=== PATIENT | male | born 1950 | race Caucasian/White ===

== ENCOUNTER 2017-04-10 19:58 | Inpatient (IN) ==
[~2017-04-10 19:58] MED LIST: DUONEB (A & A) INH ONE
[2017-04-10] MEDS ORDERED: AMIDATE ONE (20:03)
[2017-04-10] MEDS ORDERED: QUELICIN ONE (20:04)
[2017-04-10] MEDS ORDERED: ATIVAN IV ONE (20:13)
[2017-04-10] MEDS ORDERED: ATIVAN ONE (20:14)
[2017-04-10 20:19] LABS: MANUAL DIFF NEEDED? NO
[2017-04-10 20:21] LABS: BASO% 0.4 % (0.0-0.8); EOS# 0.41 X1000 (0.0-0.7); EOS% 5.2 % (0.0-10.0); HEMATOCRIT 45.6 % (42.0-52.0); HEMOGLOBIN 13.8 g/dL (14.0-18.0); IMM GRAN# 0.05 X1000 (0.0-0.04); IMM GRAN% 0.6 % (0.0-0.5); LYMPH# 3.38 X1000 (1.2-3.4); LYMPH% 42.7 % (20.5-51.1); MCH 30.4 PG (27-31); MCHC 30.3 g/dL (33-37); MCV 100.4 FL (81-99); MONO# 1.11 X1000 (0.11-0.59); MPV 9.6 FL (7.4-10.4); NEUT% 37.1 % (42.2-75.2); PLT 216 X1000 (130-400); RBC 4.54 XMIL (4.7-6.1)
[2017-04-10] MEDS: DIPRIVAN 1% 1,000 MG/100 ML BOTTLE IV SCH ×3 (20:22→22:30)
[2017-04-10 20:25] LABS: URINE CULTURE NEEDED? NO; URINE MICRO REVIEW NEEDED? NO; URINE SOURCE CATH
[2017-04-10 20:29] LABS: BILIRUBIN URINE NEGATIVE (NEGATIVE); BLOOD URINE NEGATIVE (NEGATIVE); COLOR YELLOW; GLUCOSE URINE NEGATIVE (NEGATIVE); LEUKOCYTES URINE NEGATIVE (NEGATIVE); NITRITE URINE NEGATIVE (NEGATIVE); PH URINE 5.5; PROTEIN URINE TRACE mg/dL (NEGATIVE); SP GRAVITY URINE 1.016; TURBIDITY URINE CLEAR (CLEAR); UROBILINOGEN URINE NORMAL (NORMAL)
[2017-04-10 20:30] LABS: UR EPITHELIAL CELLS <10 /HPF (<10); URINE BACTERIA NEGATIVE /HPF; URINE WBC <10 /HPF (<10)
[2017-04-10] MEDS ORDERED: AMIDATE IV ONE (20:38)
[2017-04-10] MEDS ORDERED: QUELICIN IV ONE (20:38)
[2017-04-10] MEDS ORDERED: LASIX IV ONE (20:39)
[2017-04-10 20:47] LABS: ALBUMIN 3.7 g/dL (3.5-5.0); CALCIUM 8.8 mg/dL (8.8-10.2); POTASSIUM 4.3 mmol/L (3.5-5.1); TOTAL BILIRUBIN 0.29 mg/dL (0.20-1.00); TOTAL PROTEIN 7.4 g/dL (6.3-8.3)
[2017-04-10 20:52] LABS: INR 1.06; PROTIME 11.2 Seconds (9.2-11.7); PTT 31.4 Seconds (22.0-36.0)
[2017-04-10 20:54] LABS: ALLEN TEST YES; BE 6.9 mmoll (-3.0-3.0); BLOOD TYPE ARTERIAL; DRAW SITE R RADIAL; METHB 1.2 % (0.0-1.5); O2(CT) 18.9 mL/dL (15.0-23.0); PO2(98.6) 368 mmHg (60-100); SAMPLE BLOOD; SAO2 99.9 % (95.0-100.0); SRATE 16 BPM; THB 13.2 g/dL (11.5-17.4); TVOL 600 mL; pH(98.6) 7.25 (7.35-7.45)
[2017-04-10 20:55] LABS: MODALITY VENTILATOR
[2017-04-10 20:57] LABS: PCO2(98.6) 85 mmHg (35-45)
--- NOTE | 2017-04-10 21:00 | Diag Imaging Result Doc PS360 ---
EXAM: CHEST-PORTABLE - 04/10/2017 HISTORY: post intubation TECHNIQUE: Portable chest 2030 COMPARISON: 10/22/2016 FINDINGS: There is an endotracheal tube with its tip approximately 5 cm above the delon. There is a nasogastric tube which can be followed to the distal esophagus, but the distal end of the nasogastric tube is not visible on the image. Allowing for the AP projection, heart size appears within normal limits. There is mild prominence of central markings which appears to be chronic. The lungs appear essentially clear of acute changes. There is no pleural effusion or pneumothorax identified. IMPRESSION: Satisfactory position of endotracheal tube. The nasogastric tube can be followed to the distal esophagus, but the distal end of the nasogastric tube is not included on the exam. No other evidence of acute disease. Electronically signed by Tony Haines 04/10/2017 8:58 PM
--- NOTE | 2017-04-10 21:03 | Diag Imaging Result Doc PS360 ---
EXAM: CHEST/ABD TUBE PLACEMENT - 04/10/2017 HISTORY: NG TUBE PLACEMENT TECHNIQUE: Portable exam for nasogastric tube placement 2034 COMPARISON: None. FINDINGS: The tip of the nasogastric tube is at the expected location of the distal esophagus. There is mild gaseous distention of the stomach noted. IMPRESSION: Tip of nasogastric tube at distal esophagus. Advancement of the nasogastric tube into the stomach is recommended for more optimal positioning. Electronically signed by Tony Haines 04/10/2017 9:01 PM
[2017-04-10] MEDS ORDERED: NS 1,000 ML ONE (21:08)
[2017-04-10 21:35] LABS: ALLEN TEST YES; BLOOD TYPE ARTERIAL; DRAW SITE R RADIAL; METHB 0.8 % (0.0-1.5); O2(CT) 15.3 mL/dL (15.0-23.0); PO2(98.6) 63 mmHg (60-100); SAMPLE BLOOD; SAO2 93.5 % (95.0-100.0); SRATE 16 BPM; TVOL 600 mL; pH(98.6) 7.32 (7.35-7.45)
[2017-04-10 21:37] LABS: MODALITY VENTILATOR
[2017-04-10 21:39] LABS: PCO2(98.6) 73 mmHg (35-45)
[2017-04-10] MEDS ORDERED: LEVOPHED 8 MG in D5 1/2 NS 250 ML IV SCH (21:45)
[2017-04-10] MEDS ORDERED: NS 500 ML IV ONE (22:13)
--- NOTE | 2017-04-10 22:52 | Diag Imaging Result Doc PS360 ---
EXAM: ANGIOGRAM/PULMONARY ARTERIES HISTORY: acute resp failure, + DDimer TECHNIQUE: CT chest with intravenous contrast. Dose reduction protocol. COMPARISON: 09/02/2016 FINDINGS: There is normal opacification of the pulmonary arteries and their major branches. No thoracic aortic aneurysm or dissection. An endotracheal tube is found within the trachea. No enlarged mediastinal lymph nodes. There is a calcified granuloma in the right lower lobe. No consolidation. Minimal atelectasis and fibrosis within the lungs. No bronchiectasis. No pleural effusions. IMPRESSION: 1.No pulmonary emboli 2.No pneumonia Electronically signed by Dhaval Castro 04/10/2017 10:49 PM
--- NOTE | 2017-04-10 22:54 | HISTORY AND PHYSICAL ---
PATIENT OF: Dr. Salima Madrigal. REASON FOR ADMISSION: Acute shortness of breath requiring intubation. HISTORY OF PRESENT ILLNESS: Wellington Cortes is a 66-year-old male with past medical history of diastolic heart failure, hypertension, COPD, on nocturnal home O2, morbid obesity, benign prostatic hypertrophy and chronic venous insufficiency. About 2-3 weeks ago they traveled to [place]. While they were there, they went to an urgent care in [place], [place] where he was evaluated and x-ray findings did not suggest any significant pulmonary edema which was the patient's primary concern. He then on arrival back home about a week ago started using his bronchodilators more frequently because he was still dyspneic and start using his home O2 continuously for the last 3 days. His who is at bedside and is the primary source of information, tells me that he has had no orthopnea and no chest pain, no PND. He also been having a 2 day history of a dry cough with chest congestion, but no fever or chills. Today, things took a turn for the worse when she noticed that her heart was increasingly somnolent, in addition to worsening shortness of breath. Later this evening he developed sudden acute dyspnea, and EMS was called and he was brought into the ER where he was emergently intubated. No reported change in his medication. No red discoloration of his lower extremities, although his has reported over the last 1 week both legs have been progressively swollen. Patient does use compressive stockings to address this problem, but this is a little more swollen than they normally are. REVIEW OF SYSTEMS: Otherwise review of systems could not be ascertained because the patient is currently intubated and sedated on the ventilator. ALLERGIES: Celebrex. HOME MEDICATIONS: Have not been reconciled, but the old list I have shows that he was on albuterol, Wellbutrin, Coreg, Depakote, Cardura, Lasix 60 mg b.i.d., that is the only thing I got from the that is updated, gabapentin 300 mg, [place], lisinopril, Remeron, multivitamin tablets, potassium chloride, Spiriva, trazodone, Effexor and vitamin B complex. SURGICAL HISTORY: The patient has had right hip surgery, tonsillectomy, appendectomy and venous stripping. SOCIAL HISTORY: He is . Per his , he stopped smoking about a year ago. Drinks about 2-3 shots a day. No illicit drug use. PAST MEDICAL HISTORY: BPH, hypertension, chronic venous insufficiency, for the rest, see HPI. LABORATORY WORK AND IMAGING: White count 7000, hemoglobin and hematocrit 13 and 45, platelets 216,000. Glucose 159, AST 67, ALT 48, troponin 0.01. D-dimer is 0.7, PT PTT normal. Urinalysis shows 10-20 RBC. Most recent blood gas 7.32, pCO2 73, PO2 63, bicarb 31, this was on 50% FiO2. Respiration rate 16, tidal volume 600, PEEP is 8. Chest x-ray just shows no evidence of increased vascular markings. Troponin 1st set was negative. CK was normal. EKG is pending at this time. PHYSICAL EXAMINATION: GENERAL: Morbidly obese, middle-aged man who is sedated on the ventilator and completely unresponsive because of heavy sedation. HEENT: Head is normocephalic, atraumatic. Eyes are miotic, but barely reactive. He is anicteric and not pale. ENT and oropharyngeal exam is very limited since he has an NG tube in on of his naris and ET tube in place. No visual central cyanosis noted. NECK: Short and thick. I cannot visualize any JVD. No bruit appreciated. No thyromegaly visually appreciated. CHEST: Decreased air entry in both lung sinha with scattered wheezes. No crepitations appreciated. CARDIOVASCULAR: First and second heart sounds heard. No gallops, murmurs, rubs. Rhythm is regular. Pulses distally in all extremities are weak and thready, but they are symmetrical. ABDOMEN: Protuberant, soft. No masses appreciated. No tenderness could be elicited by facial grimacing, because he is sedated. Bowel sounds hypoactive. RECTAL: Deferred. EXTREMITIES: The patient has trace to 1+ pitting edema in both extremities with chronic erythema on guardado. No clubbing or peripheral cyanosis. NEUROLOGIC: Motor system could not be ascertained since patient is on sedation and recently paralyzed. MUSCULOSKELETAL: Visually appears grossly normal. ASSESSMENT: 1. Acute respiratory failure secondary to chronic obstructive pulmonary disease exacerbation. I cannot rule out pulmonary embolism. Currently patient is awaiting a CT angiogram of the chest based on the fact that he did have a recent long distance travel around the time he had the symptoms. He has also a history of chronic venous insufficiency. For now we will await CT scan and then if it is positive we will treat with appropriate dosing of Lovenox. Also start patient on steroids, nebulizer treatments, empiric antibiotics to cover primarily the possibility of aspiration in this patient. Continue ventilator support. Consult receptionist nurse to see patient. We will also start on peptic ulcer disease and DVT prophylaxis in the interim. 2. Chronic obstructive pulmonary disease exacerbation. See above. When patient is discharged, I do suspect that he would need to be on 24 hour home O2 with the addition of long-acting bronchodilators and possibly inhaled corticosteroids. 3. Hypertension. For now patient is hypotensive following Lasix, which makes me believe that he may be intravascularly depleted. We will start patient on IV fluids. We are holding all blood pressure medications. We will give a bolus for now and see how he responds. Decrease PEEP at this point in time to improve blood pressure. The patient is started on Levophed to address this. 4. Benign prostatic hypertrophy. He has Michaud catheter in place. Cardura on hold for the blood pressure. 5. Patient will have daily laboratory, to include ABG, chest x-ray, CBC, CMP and these will need to be followed by morning team and receptionist nurse pupil personnel worker. The patient does not appear to be in congestive heart failure based on my clinical assessment. CRITICAL CARE TIME: 35 minute. cc: MD Salima Gomez
[2017-04-10] MEDS ORDERED: DUONEB (A & A) INH SCH (23:02)
[2017-04-10] MEDS ORDERED: ZOFRAN IV PRN (23:02)
[2017-04-10] MEDS ORDERED: SODIUM CHLORIDE 0.9% INJ ONE (23:02)
[2017-04-11] MEDS: LOVENOX SUBQ SCH (01:52)
[2017-04-11] MEDS: NS 1,000 ML IV SCH ×2 (02:02→15:57)
[2017-04-11] MEDS: ZOSYN 3.375 GM/NS 3.375 GM/50 ML IVPB IV SCH ×4 (02:02→20:48)
[2017-04-11] MEDS: MORPHINE IV PRN ×2 (02:25→04:56)
[2017-04-11] MEDS: DIPRIVAN 1% 1,000 MG/100 ML BOTTLE IV SCH ×13 (02:44→23:16)
[2017-04-11] MEDS: SOLU-MEDROL IV SCH ×3 (03:59→20:49)
[2017-04-11 05:04] LABS: ALLEN TEST YES; BE 17.6 mmoll (-3.0-3.0); BLOOD TYPE ARTERIAL; DRAW SITE R RADIAL; METHB 0.6 % (0.0-1.5); PCO2(98.6) 35 mmHg (35-45); PO2(98.6) 141 mmHg (60-100); SAMPLE BLOOD; SAO2 99.7 % (95.0-100.0); SRATE 18 BPM; THB 11.5 g/dL (11.5-17.4); TVOL 600 mL
[2017-04-11 05:05] LABS: MODALITY VENTILATOR; pH(98.6) 7.66 (7.35-7.45)
[2017-04-11 05:45] LABS: MANUAL DIFF NEEDED? NO
[2017-04-11 05:55] LABS: BASO% 0.2 % (0.0-0.8); EOS# 0.27 X1000 (0.0-0.7); HEMATOCRIT 37.3 % (42.0-52.0); HEMOGLOBIN 11.6 g/dL (14.0-18.0); LYMPH# 1.63 X1000 (1.2-3.4); LYMPH% 30.3 % (20.5-51.1); MCH 30.4 PG (27-31); MCHC 31.1 g/dL (33-37); MCV 97.6 FL (81-99); MONO# 0.64 X1000 (0.11-0.59); MONO% 11.9 % (1.7-9.3); MPV 10.1 FL (7.4-10.4); NEUT% 52.6 % (42.2-75.2); PLT 187 X1000 (130-400); RBC 3.82 XMIL (4.7-6.1)
[2017-04-11 06:21] LABS: ALBUMIN 2.7 g/dL (3.5-5.0); CALCIUM 8.5 mg/dL (8.8-10.2); POTASSIUM 4.1 mmol/L (3.5-5.1); TOTAL BILIRUBIN 0.53 mg/dL (0.20-1.00); TOTAL PROTEIN 5.7 g/dL (6.3-8.3)
--- NOTE | 2017-04-11 07:14 | Diag Imaging Result Doc PS360 ---
EXAM: CHEST-PORTABLE HISTORY: Vent ETT placement and respiratory distress TECHNIQUE: AP portable semiupright chest at 0005 COMMENT: Compared to the previous study of 04/10/2017 there is atelectasis in the left costophrenic angle. Endotracheal tube is at the thoracic inlet and the NG tube passes below the diaphragm. IMPRESSION: Left lower lobe and possible lingular atelectasis. Electronically signed by Art Larson 04/11/2017 7:12 AM
[2017-04-11] MEDS ORDERED: PROTONIX IV SCH (09:00)
[2017-04-11] MEDS: SODIUM CHLORIDE 0.9% INJ SCH (09:59)
[2017-04-11] MEDS: PROTONIX IV SCH (09:59)
[2017-04-11] MEDS: DUONEB (A & A) INH SCH ×2 (19:30→23:00)
--- NOTE | 2017-04-11 19:32 | PROGRESS NOTE ---
DATE: 04/11/2017 SUBJECTIVE: This 66-year-old came in with acute shortness of breath, requiring intubation. He has a past medical history of diastolic heart failure, hypertension, COPD, nocturnal home O2, morbid obesity, benign prostatic hypertrophy, and chronic venous insufficiency. About 2-3 weeks ago he travels to [place]. While he was there he went to urgent care in [place], [place] where he was evaluated and x-ray findings did not suggest any significant pulmonary edema which was patient's primary concern. He then on arrival back a week ago started using his bronchodilators more frequently because he was still dyspneic and started using his home O2 continuously for the last 3 days. His who is at the bedside, primary source of information, said that he had no orthopnea, no chest pain, and no PND. He has been having a 2-day history of dry cough, chest congestion. No fever or chills. He took a turn for the worse when he noticed that his heart rate was increasing and he was increasing somnolent, in addition to worsening shortness of breath. Later in evening he developed sudden acute dyspnea and EMS was called. He was brought to the emergency room where he was intubated. No reported change in medications. After evaluation he was admitted for: 1. Acute respiratory failure, acute on chronic obstructive pulmonary disease exacerbation. Could not rule out pulmonary embolism. The patient was awaiting a CT angiogram. Pulmonary angiogram done at 9 o'clock showed no pulmonary emboli and no pneumonia. He was put on bronchodilator treatments and he was put on some empiric antibiotics as well. 2. Chronic obstructive pulmonary disease exacerbation with hypoxemia. 3. Hypertension. Elected to diurese the patient. 4. Benign prostatic hypertrophy. 5. Nutritional status seemed to be okay. Chest x-ray on 04/11, this morning: Left lower lobe possible lingular atelectasis. X-ray from admission yesterday: Satisfactory position of endotracheal tube, nasogastric tube can be followed down the distal esophagus but the distal end of the nasogastric tube was not in place. Did not see any evidence of acute disease. Reviewed his lab. OBJECTIVE: General: Today intubated on the ventilator. Vital signs: Temperature 97.0 degrees, pulse 50 respirations 10, blood pressure has been between 80 and 100 systolic and 50s diastolic. Lungs: Anterolateral are clear. Cardiovascular: Regular rhythm and rate without murmur or S3. Abdomen: Soft. Skin: Warm and dry. Intake and output: Good urine output, over a liter by report. LABORATORY: Again, reviewed the lab. Electrolytes look okay. Serum creatinine 1.3. REVIEW OF ORDERS: On Zosyn 3.375 mg q.6 hours. Got a dose of Lasix yesterday. He is on normal saline at 75 mL/h, methylprednisone 60 mg IV q.8. He is on Lovenox 40 mg subcutaneously q.24 hours. PLAN: Continue present therapy. Dr. Carcamo is consulted. I suspect we will want to look at an echocardiogram and look at left ventricular function. He has had an echocardiogram done back in October and he at that time had normal left ventricular size. Ejection fraction 65%. His blood gases on presentation 7.25 pH, pCO2 is 85, PO2 368, O2 saturation was 99%. Blood gases from this morning, pH is up to 7.66, pCO2 of 35, PO2 was 141. Based on his lab he may have some volume contraction alkalosis. Blood gas exchange improved. cc: Link Blas MD
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
[2017-04-12] MEDS: DIPRIVAN 1% 1,000 MG/100 ML BOTTLE IV SCH ×12 (01:11→23:42)
[2017-04-12] MEDS: LOVENOX SUBQ SCH (01:13)
[2017-04-12] MEDS: ZOSYN 3.375 GM/NS 3.375 GM/50 ML IVPB IV SCH ×4 (01:13→19:54)
[2017-04-12] MEDS: DUONEB (A & A) INH SCH ×6 (02:40→22:53)
[2017-04-12 04:26] LABS: ALLEN TEST YES; BE 11.2 mmoll (-3.0-3.0); BLOOD TYPE ARTERIAL; DRAW SITE R RADIAL; METHB 1.2 % (0.0-1.5); O2(CT) 18.9 mL/dL (15.0-23.0); PO2(98.6) 63 mmHg (60-100); SAMPLE BLOOD; SAO2 93.5 % (95.0-100.0); SRATE 10 BPM; THB 14.8 g/dL (11.5-17.4); TVOL 600 mL; pH(98.6) 7.41 (7.35-7.45)
[2017-04-12 04:27] LABS: MODALITY VENTILATOR; PCO2(98.6) 61 mmHg (35-45)
[2017-04-12] MEDS: NS 1,000 ML IV SCH (05:16)
[2017-04-12] MEDS: SOLU-MEDROL IV SCH ×3 (05:16→19:56)
[2017-04-12 05:30] LABS: HEMATOCRIT 39.4 % (42.0-52.0); HEMOGLOBIN 12.6 g/dL (14.0-18.0); MCH 30.6 PG (27-31); MCV 95.6 FL (81-99); MPV 10.5 FL (7.4-10.4); RBC 4.12 XMIL (4.7-6.1)
[2017-04-12 06:10] LABS: ALBUMIN 3.1 g/dL (3.5-5.0); CALCIUM 8.4 mg/dL (8.8-10.2); POTASSIUM 4.1 mmol/L (3.5-5.1); TOTAL BILIRUBIN 0.4 mg/dL (0.20-1.00); TOTAL PROTEIN 6.2 g/dL (6.3-8.3)
[2017-04-12 06:15] LABS: MAGNESIUM 1.9 mg/dL (1.5-2.7)
--- NOTE | 2017-04-12 07:20 | Diag Imaging Result Doc PS360 ---
EXAM: CHEST-PORTABLE HISTORY: respiratory failure TECHNIQUE: Erect AP portable at 0525 COMMENT: There continues to be volume loss and atelectasis over the left base. There may be mild atelectasis or pneumonia in the right lower lobe medially. The endotracheal tube remains with its tip at the thoracic inlet. Compared to 04/11/2017 there has been no appreciable change considering differences in inspiration. IMPRESSION: Atelectasis. Electronically signed by Art Larson 04/12/2017 7:18 AM
[2017-04-12] MEDS: SODIUM CHLORIDE 0.9% INJ SCH (08:07)
[2017-04-12] MEDS: PROTONIX IV SCH (08:07)
--- NOTE | 2017-04-12 08:27 | PROVIDER DOCUMENTATION ---
This chart was entered by Camilo Uriostegui Scribe, acting as scribe for Rc Noreiga MD. HPI-Respiratory General - General Stated Complaint: SOB Time Seen by Provider: 04/10/17 19:58 Source: EMS Allergies/Adverse Reactions: Patient Allergies Allergy/AdvReac Type Severity Reaction Status Date / Time celecoxib [From Celebrex] Allergy Severe ANAPHYLAXIS Verified 10/22/16 02:02 Home Medications: Home Medication List Medication Instructions Recorded Confirmed Last Taken Type Bupropion HCl [Wellbutrin Xl] 300 mg PO DAILY 11/24/13 04/10/17 04/10/17 History Divalproex [Depakote] 1,000 mg PO HS 11/24/13 04/10/17 04/10/17 History Doxazosin Mesylate [Cardura] 2 mg PO DAILY 11/24/13 04/10/17 04/10/17 History Lisinopril 40 mg PO DAILY 11/24/13 04/10/17 04/10/17 History Potassium Chloride [Klor-Con 10] 10 meq PO TID 11/24/13 04/10/17 04/10/17 History Trazodone HCl 50 mg PO HS 11/24/13 04/10/17 04/10/17 History Mirtazapine [Remeron] 15 mg PO QHS 07/13/15 04/10/17 04/10/17 History Tiotropium [place] Inhaler 1 puff INH RTDAILY #1 inhaler 07/16/15 04/10/1704/10 Rx [Spiriva] Gabapentin [Neurontin] 300 mg PO Q8HR 02/06/16 04/10/17 04/10/17 History Furosemide 60 mg PO QPM 08/12/16 04/10/17 04/10/17 History Furosemide [Lasix] 60 mg PO QAM 08/12/16 04/10/17 04/10/17 History Mv-Mn/FA/Lycopene/Lut/Hb#178 [Dayron 1 each PO DAILY 08/12/16 04/10/17 04/10/17 History Multi For Men Tablet] Vitamin B Complex [B Complex] 1 each PO DAILY 08/12/16 04/10/17 04/10/17 History Venlafaxine [Effexor] 75 mg PO DAILY 08/17/16 04/10/17 04/10/17 History Hydrocodone/Acetaminophen [[place] 1 each PO DAILY #0 10/24/16 04/10/17 04/10/17 Rx 10-325 Tablet] Albuterol Sulfate Inhaler 1 puff INH Q4H PRN PRN 04/10/17 04/10/17 04/10/17 History [Ventolin Hfa] Carvedilol [Coreg] 12.5 mg PO TID 04/10/17 04/10/17 04/10/17 History Clonazepam [Clonazepam] 2 mg PO TID PRN PRN 04/11/17 04/11/17 04/10/17 History Prazosin [Minipress] 1 mg PO QHS 04/11/17 04/11/17 04/10/17 History - History of Present Illness-Resp Nature of Presenting Problem: Pt is a 66 yowm who presents to ER via EMS for respiratory distress. EMS reports that pt had an O2 sat of 74% on 2L at home, put pt on Cpap and pt's respiration decreased to 4 respirations per minute. 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 EMS reports pt has hx of COPD and CHF. Quality of Pain: reports: tightness Severity in ED: reports: severe Onset/Duration: reports: unsure, 1-3 hours ago Timing: reports: still present, getting worse Associated Symptoms: reports: shortness of breath, short of breath, other ( decreased responsiveness). denies: sinus pain, sore throat, sweaty, wheezing Similar Symptoms Previously?: No Recently seen or treated by another doctor?: No Review of Systems - Adult - REVIEW OF SYSTEMS - ADULT ROS:: ROS per EMS Constitutional: denies: chills, fever, fatique, night sweats, weight gain, weight loss Eyes: reports: no symptoms reported Ears, Nose, Mouth & Throat: reports: no symptoms reported Cardiovascular: reports: no symptoms reported Respiratory: reports: shortness of breath, other (hypoxic). denies: chronic cough, cough, dyspnea on exertion, excessive sputum production, hemoptysis, pleurisy, wheezing Gastrointestinal: reports: no symptoms reported Genitourinary: reports: no symptoms reported Musculoskeletal: reports: no symptoms reported Integumentary: reports: no symptoms reported Neurological: reports: no symptoms reported Psychiatric: reports: no symptoms reported Endocrine: reports: no symptoms reported Hematologic/Lymphatic: reports: no symptoms reported Allergic/Immunologic: reports: no symptoms reported All Other Systems: Reviewed and Negative Past History - Adult - PAST MEDICAL HISTORY-ADULT Review of Records: reports: Nursing Assessment Review, Medications Reviewed Cardiovascular: reports: CHF, HTN, hyperlipidemia Musculoskeletal: reports: arthritis Psychiatric: reports: depression Other Conditions: reports: other cancer (melanoma) - PRIOR SURGERIES/PROCEDURES Surgical/Procedure History: reports: reviewed, not pertinent - PRIOR HOSPITALIZATIONS Prior Hospitalizations: reports: for other non-related - IMMUNIZATION STATUS Childhood Immunizations: See Nurse Assessment Flu Vaccine: See Nurse Assessment Physical Exam-General - PHYSICAL EXAM-ADULT Exam Limited by: decreased responsiveness; See HPI Initial Vital Signs Reviewed: Yes - CONSTITUTIONAL General Appearance: severe distress, obese - RESPIRATORY Respiratory: respiratory distress (severe), other (hypoxic) - CARDIOVASCULAR Cardiovascular: normal peripheral pulses, regular rate, rhythm, bradycardia, other (HTN (196/104)). negative: tachycardia, irregularly irregular Progress - PLAN OF CARE/RESULTS Progress/Plan/Lab Results: Orders Category Date Time Status Admit [facility] Routine AdmDCTranf 04/10/17 23:02 Ordered Activity - Up with Assistance ORDERED Care 04/10/17 23:02 Active Cardiac Monitoring DIRECTED Care 04/10/17 20:07 Completed Michaud Cath Insertion ORDERED Care 04/10/17 20:08 Completed Intake and Output-Strict ORDERED Care 04/10/17 23:02 Active NG/OG/Feeding Tube Insertion ORDERED Care 04/10/17 20:21 Completed Nursing- MD Consult Request ROUTINE Care 04/10/17 23:02 Completed Saline Loc NOW Care 04/10/17 20:07 Completed Vital Signs Order Q 8-HR ASSESS Care 04/10/17 23:02 Completed Z-Document. for Tele Applied ORDERED Care 04/10/17 23:02 Completed Physician/Provider Consults Routine Cons 04/10/17 23:02 Ordered NPO Diet 04/10/17 21:56 Active ANGIOGRAM/PULMONARY ARTERIES [CT] Stat Exams 04/10/17 21:07 Completed CHEST-PORTABLE [RAD] Stat Exams 04/10/17 20:00 Completed CHEST/ABD TUBE PLACEMENT [RAD] Routine Exams 04/10/17 Completed ABG [RESP] DAILY Lab 04/11/17 04:20 Completed ABG [RESP] DAILY Lab 04/12/17 04:00 Completed ABG [RESP] DAILY Lab 04/13/17 06:00 Ordered ABG [RESP] Routine Lab 04/10/17 20:45 Completed ABG [RESP] Routine Lab 04/10/17 21:25 Completed CBC WITH DIFF [HEME] Routine Lab 04/11/17 04:15 Completed CBC WITH ELECTRONIC DIFF [HEME] Stat Lab 04/10/17 19:58 Completed CK PROFILE [SP CHEM] Stat Lab 04/10/17 19:58 Completed COMPREHENSIVE METABOLIC PANEL [CHEM] Routine Lab 04/11/17 04:15 Completed COMPREHENSIVE METABOLIC PANEL [CHEM] Stat Lab 04/10/17 19:58 Completed D-DIMER [CHEM] Stat Lab 04/10/17 19:58 Completed MAGNESIUM [CHEM] Stat Lab 04/10/17 19:58 Completed PRO B-NATRIURETIC PEPTIDE Stat Lab 04/10/17 19:58 Completed PROTIME WITH INR [COAG] Stat Lab 04/10/17 19:58 Completed PTT [COAG] Stat Lab 04/10/17 19:58 Completed TROPONIN T Routine Lab 04/10/17 00:34 Completed TROPONIN T Routine Lab 04/11/17 04:15 Completed TROPONIN T Stat Lab 04/10/17 19:58 Completed TSH Stat Lab 04/10/17 19:58 Completed UA NIMS W/REFLEX CULT [URINALYSIS] Stat Lab 04/10/17 20:14 Completed VALPROIC ACID [TDM] Stat Lab 04/10/17 19:58 Completed 0.9% Sodium Chloride Inj [Ns] 1,000 ml Med 04/10/17 21:08 Discontinued .ROUTE As Directed 0.9% Sodium Chloride Inj [Ns] 1,000 ml Med 04/10/17 23:02 Active IV 75 mls/hr 0.9% Sodium Chloride Inj [Ns] 500 ml Med 04/10/17 22:13 Discontinued IV 250 mls/hr Acetaminophen [Tylenol] Med 04/10/17 23:02 Active 650 mg PO Q6H PRN PRN Albuterol 2.5MG/Ipratrop 0.5MG [Duoneb (A & A)] Med 04/10/17 23:02 Discontinued 3 ml INH Q4H Dextrose 5%-0.45% NaCl Inj [D5 1/2 Ns] 250 ml Med 04/10/17 21:45 Discontinued Norepinephrine [Levophed] 8 mg IV As Directed Enoxaparin [Lovenox] Med 04/10/17 23:02 Active 40 mg SUBQ Q24H Etomidate [Amidate] Med 04/10/17 20:03 Discontinued 40 mg .ROUTE .STK-MED ONE Etomidate [Amidate] Med 04/10/17 20:38 Discontinued 40 mg IV NOW ONE Furosemide [Lasix] Med 04/10/17 20:39 Discontinued 40 mg IV NOW ONE Lorazepam [Ativan] Med 04/10/17 20:14 Discontinued 2 mg .ROUTE .STK-MED ONE Lorazepam [Ativan] Med 04/10/17 20:13 Discontinued 2 mg IV NOW ONE Methylprednisolone Sod Succ [Solu-Medrol] Med 04/11/17 05:00 Active 60 mg IV Q8H Morphine Med 04/10/17 23:02 Active 4 mg IV Q2H PRN PRN Ondansetron [Zofran] Med 04/10/17 23:02 Active 4 mg IV Q4H PRN PRN Pantoprazole [Protonix] Med 04/11/17 09:00 Discontinued 40 mg IV DAILY Piperacil/Tazobact 3.375 gm/Ns [Zosyn 3.375 gm/Ns] Med 04/10/17 23:02 Active 3.375 gm in 50 ml IV Q6H Propofol [Diprivan 1%] Med 04/10/17 20:13 Discontinued 1,000 mg in 100 ml IV Per Protocol Sodium Chloride 0.9% Med 04/10/17 23:02 Discontinued 10 ml INJ NOW ONE Succinylcholine [Quelicin] Med 04/10/17 20:38 Discontinued 100 mg IV NOW ONE Succinylcholine [Quelicin] Med 04/10/17 20:04 Discontinued 200 mg .ROUTE .STK-MED ONE Aerosol Treatments Routine Oth 04/10/17 23:02 Completed Aerosol Treatments Stat Oth 04/10/17 23:02 Completed Telemetry [OM.EQ] Routine Oth 04/10/17 23:02 Active Transfer/Admit Order [TRANSFER] Routine Transfer 04/10/17 21:52 Completed reports that pt's SOB has been intermittent for the past several days. Pt quit smoking 1.5 years ago and is very compliant with his medications. Result Diagrams: 04/12/17 03:55 04/12/17 03:55 - EKG 1 Time of EKG reading by physician:: 21:46 EKG Read and Signed by:: Rc Noriega EKG Interpretation (*Must complete 3 of following elements*): Normal Rate: 77 Rhythm: Sinus rhythm with marked sinus arrhythmia Prior EKG Comparison: unchanged from prior (compared to 09/02/2016) - XRAY 1 XRAY: Bilateral XRAY Study: Chest Impression: See EMR Report (Good position of ET tube, possible pulmonary edema - Dr. Noriega) XRAY Interpretation: See report 2 XRAY: Bilateral XRAY Study: Chest, Abdomen Impression: See EMR Report (NG tube needs to be advanced - Dr. Noriega) XRAY Interpretation: See report - CT/MRI 1 CT Study: Angiogram Impression: See EMR Report (No pulmonary emboli. No pneumonia - Dr. Castro ( Radiologist)) CT Results: See report Procedures - INTUBATION Time of Intubation: 20:00 Airway Evaluation: Obese, Large tongue Mallampati Class: 2 Intubation Method: orotracheal Equipment: Glidescope Tube Size (cm): 7.5 Pretreated with 100% Oxygen?: Yes Breath Sounds after Intubation: equal ETT Primary Tube Confirmation: Capnometry CO2 Change, Direct Visualization, Chest Rise and Fall Intubation Complications: no complications Vent Settings: See Respiratory Therapy Notes Procedure Comment: 40 of etomidate 100 of succinycholine Departure - Departure Date of Disposition Decision: 04/10/17 Time of Disposition Decision: 22:00 DIAGNOSIS: Acute pulmonary edema Disposition: ADMITTED INPATIENT 09 Certified Medical Emergency: Emergent Condition: Stable - Critical Care Note This patient required my direct & personal management of CC.: Yes Total Time (mins): 60 Critical Care Statement: This patient required my direct personal management to treat or rule out processes, the absence of which, could potentiallly result in sudden, clinically significant life or limb threatening deterioration. This chart was documented by the indicated scribe, (Camilo Uriostegui Scribe) and accurately reflects the services I performed and decisions made by me, Rc Mckeon MD, as attested by the provider's signature.
[2017-04-12] MEDS ORDERED: CLINIMIX E 4.25%-5% SOLUTION 1,000 ML IV SCH (09:46)
[2017-04-12] MEDS: 1/2 NS 1,000 ML IV SCH (10:37)
--- NOTE | 2017-04-12 10:41 | PROGRESS NOTE ---
DATE: 04/12/2017 SUBJECTIVE: This patient is still on mechanical ventilation and sedated. Family members at the bedside. All her questions were answered. OBJECTIVE: Vital Signs: Temperature 92.7 degrees, pulse 64, respiratory rate 17, blood pressure 148/75, oxygen saturation 100% on mechanical ventilation with 65% FiO2. HEENT: Head normocephalic. No trauma. PERRLA. Neck: Supple. No JVD. No masses. Central trachea. Chest: Decreased breath sounds globally with mild crackles at the bases. I do not hear any wheezing. Abdomen: Protuberant and soft, nontender, nondistended. No hepatosplenomegaly. Extremities: There is 2+ lower extremity edema. No clubbing. No cyanosis. Neurological examination: This patient is sedated and intubated. LABORATORY: WBC 9.8, hemoglobin 12.6, hematocrit 39.4, platelet 184. Sodium 140, potassium 4.1, chloride 96, bicarbonate 34, BUN 15, creatinine 1.3, glucose 163, calcium 8.4, albumin 3.1. ASSESSMENT AND PLANS: 1. Acute on chronic hypoxemic and hypercapnic respiratory failure. This patient is still on mechanical ventilation. Pulmonary Department is following this patient. 2. Diastolic heart failure exacerbation. I will put this patient on Lasix twice a day. His kidney function is a little bit elevated; we will keep an eye on this. 3. Probably acute on chronic kidney disease. Will monitor. 4. Hypertension. Stable. Continue with the same management for now. 5. Chronic obstructive pulmonary disease exacerbation. Continue with the same management. 6. Benign prostatic hyperplasia, aware. CRITICAL CARE TIME: 35 minutes. cc: Anatoliy Rubin MD
[2017-04-12] MEDS: LASIX IV SCH ×2 (19:56→23:41)
[2017-04-13] MEDS: SOLU-MEDROL IV SCH ×4 (01:03→20:01)
[2017-04-13] MEDS: DIPRIVAN 1% 1,000 MG/100 ML BOTTLE IV SCH ×11 (01:44→22:48)
[2017-04-13] MEDS: LOVENOX SUBQ SCH (01:47)
[2017-04-13] MEDS: ZOSYN 3.375 GM/NS 3.375 GM/50 ML IVPB IV SCH ×4 (02:15→20:12)
[2017-04-13] MEDS: DUONEB (A & A) INH SCH ×6 (03:00→23:07)
[2017-04-13 04:32] LABS: ALLEN TEST YES; BE 8.5 mmoll (-3.0-3.0); BLOOD TYPE ARTERIAL; DRAW SITE R RADIAL; METHB 1.2 % (0.0-1.5); O2(CT) 23.8 mL/dL (15.0-23.0); PO2(98.6) 81 mmHg (60-100); SAMPLE BLOOD; SAO2 96.8 % (95.0-100.0); SRATE 8 BPM; TVOL 700 mL; pH(98.6) 7.43 (7.35-7.45)
[2017-04-13 04:34] LABS: MODALITY VENTILATOR; PCO2(98.6) 53 mmHg (35-45)
[2017-04-13 04:56] LABS: HEMATOCRIT 39.2 % (42.0-52.0); HEMOGLOBIN 12.5 g/dL (14.0-18.0); MCH 30.5 PG (27-31); MCHC 31.9 g/dL (33-37); MCV 95.6 FL (81-99); MPV 10.6 FL (7.4-10.4); RBC 4.1 XMIL (4.7-6.1)
[2017-04-13 05:30] LABS: ALBUMIN 2.9 g/dL (3.5-5.0); CALCIUM 8.3 mg/dL (8.8-10.2); POTASSIUM 4.1 mmol/L (3.5-5.1); TOTAL BILIRUBIN 0.25 mg/dL (0.20-1.00)
[2017-04-13] MEDS: 1/2 NS 1,000 ML IV SCH (07:33)
--- NOTE | 2017-04-13 07:35 | Diag Imaging Result Doc PS360 ---
CHEST-PORTABLE - 04/13/2017 INDICATION: respiratory failure TECHNIQUE: COMPARISON: 04/12/2017 FINDINGS: Support tubes are stable. Stable small to moderate left basilar pleural effusion. Stable patchy bibasilar atelectasis or infiltrates. Stable mild cardiomegaly. Pulmonary vascularity remains normal. IMPRESSION: No change from prior. Electronically signed by Eitan Mendez 04/13/2017 7:32 AM
[2017-04-13] MEDS: LASIX IV SCH ×2 (08:33→20:01)
[2017-04-13] MEDS: PROTONIX IV SCH (08:33)
[2017-04-13] MEDS: SODIUM CHLORIDE 0.9% INJ SCH (08:33)
--- NOTE | 2017-04-13 10:38 | PROGRESS NOTE ---
DATE: 04/13/2017 SUBJECTIVE: This patient is still on mechanical ventilation and sedated. Family members at the bedside. All of her questions were answered. OBJECTIVE: Vital Signs: Temperature 97.2 degrees, pulse 73, respiratory rate 13 and blood pressure 178/94. O2 saturation 94% on 65% FiO2 mechanical ventilation. HEENT : Head normocephalic. No trauma. PERRLA. Neck: Supple. No JVD. No masses. Central trachea. Chest: Decreased breath sounds globally with mild crackles at the bases. No wheezing. Abdomen: Protuberant and soft. Nontender, nondistended. No hepatosplenomegaly. Extremities: 2+ lower extremity edema with some redness at the level of the anterior part of the legs , This as per the , has been chronic. Neurological: The patient is sedated and intubated. LABORATORY: WBC 10.4, hemoglobin 12.5, hematocrit 39.2, platelets 221,000. Sodium 140 potassium 4.1, chloride 95, bicarbonate 31, BUN 22, creatinine 1.3, glucose 254, calcium 8.3 and albumin 2.9. ASSESSMENT AND PLAN: 1. Acute on chronic hypoxemic and hypercapnic respiratory failure. This patient is still on mechanical ventilation. Pulmonary Department is following with this patient. 2. Diastolic heart failure exacerbation. Continue with the Lasix twice a day. We will continue to monitor the kidney function. 3. Questionable diabetes mellitus, I will ask for a hemoglobin A1c to rule it out, for now, this patient will be on sliding scale insulin. 4. Hypertension. His blood pressure has been high. He used to be at home on lisinopril and carvedilol. I will restart his carvedilol but at a lower dose. 5. Chronic obstructive pulmonary disease exacerbation. Continue with the same management. 6. BPH aware. CRITICAL CARE TIME: 35 minutes. cc: Anatoliy Rubin MD MTDD
[2017-04-13] MEDS: HUMULIN R SUBQ SCH ×3 (11:26→20:13)
[2017-04-13] MEDS ORDERED: LASIX IV ONE (13:00)
[2017-04-13] MEDS ORDERED: NS 100 ML ONE (14:26)
[2017-04-13 14:59] LABS: INR 0.97; PROTIME 10.2 Seconds (9.2-11.7)
[2017-04-13] MEDS: COREG PO SCH (20:00)
[2017-04-14] MEDS: DIPRIVAN 1% 1,000 MG/100 ML BOTTLE IV SCH ×10 (01:26→23:41)
[2017-04-14] MEDS: LOVENOX SUBQ SCH (02:13)
[2017-04-14] MEDS: ZOSYN 3.375 GM/NS 3.375 GM/50 ML IVPB IV SCH ×4 (02:13→19:44)
[2017-04-14] MEDS: DUONEB (A & A) INH SCH ×6 (03:12→23:09)
[2017-04-14] MEDS: 1/2 NS 1,000 ML IV SCH ×3 (03:45→20:49)
[2017-04-14 04:34] LABS: ALLEN TEST YES; BE 14.5 mmoll (-3.0-3.0); BLOOD TYPE ARTERIAL; DRAW SITE R RADIAL; METHB 0.9 % (0.0-1.5); O2(CT) 15.8 mL/dL (15.0-23.0); PO2(98.6) 58 mmHg (60-100); SAMPLE BLOOD; SRATE 8 BPM; THB 12.4 g/dL (11.5-17.4); TVOL 700 mL
[2017-04-14 04:35] LABS: MODALITY VENTILATOR; PCO2(98.6) 51 mmHg (35-45)
[2017-04-14] MEDS: SOLU-MEDROL IV SCH ×3 (04:48→20:22)
[2017-04-14 05:20] LABS: HEMATOCRIT 38.3 % (42.0-52.0); HEMOGLOBIN 12.4 g/dL (14.0-18.0); MCHC 32.4 g/dL (33-37); MCV 95.8 FL (81-99); MPV 10.4 FL (7.4-10.4)
[2017-04-14 05:39] LABS: HEMOGLOBIN A1C 5.7 % (4.8-6.0)
[2017-04-14 05:43] LABS: ALBUMIN 2.9 g/dL (3.5-5.0); CALCIUM 7.9 mg/dL (8.8-10.2); POTASSIUM 3.6 mmol/L (3.5-5.1); TOTAL BILIRUBIN 0.35 mg/dL (0.20-1.00)
[2017-04-14] MEDS: HUMULIN R SUBQ SCH ×4 (06:11→20:23)
--- NOTE | 2017-04-14 07:38 | Diag Imaging Result Doc PS360 ---
EXAM: CHEST-PORTABLE INDICATION: respiratory failure TECHNIQUE: One view COMPARISON: 04/13/2017 FINDINGS: ET tube and NG tube are in stable positions. There has been interval placement of a right PICC line. The tip projects over the lower SVC in the region of the atriocaval junction. There is a stable left pleural effusion and left basilar atelectasis. No new consolidation is appreciated. There is stable cardiomegaly. IMPRESSION: Interval placement of right PICC line. Stable chest, otherwise. Electronically signed by Chapo Shore 04/14/2017 7:35 AM
[2017-04-14] MEDS: COREG PO SCH ×2 (08:03→20:38)
[2017-04-14] MEDS: NORVASC PO SCH (08:03)
[2017-04-14] MEDS: SODIUM CHLORIDE 0.9% INJ SCH (08:04)
[2017-04-14] MEDS: PROTONIX IV SCH (08:04)
[2017-04-14] MEDS: LASIX IV SCH (08:04)
--- NOTE | 2017-04-14 15:08 | PROGRESS NOTE ---
DATE: 04/14/2017 SUBJECTIVE: This patient is still on mechanical ventilation and sedated. Family members at the bedside. All her questions were answered, I do not see any significant change compared with yesterday. We will continue to monitor. Pulmonary Department on board. OBJECTIVE: Vital Signs: Temperature 97.5 degrees, pulse 56, respiratory rate 14, blood pressure 119/66, oxygen saturation 94% on mechanical ventilation, 55% FiO2. HEENT: Head normocephalic. No trauma. PERRLA. Neck: Supple. No JVD. No masses. Central trachea. Chest: Decreased breath sounds globally with mild crackles at the bases. No wheezing. Abdomen: Protuberant and soft. Nontender, nondistended. No hepatosplenomegaly. Extremities: 2+ lower extremity edema with some redness at the level of the shins that as per the , has been chronic. Neurological: This patient is sedated and intubated. LABORATORY: WBC 10.1, hemoglobin 12.4, hematocrit 38.3, platelets 221,000. Sodium 145, potassium 3.6, chloride 97, bicarbonate 33, BUN 28, creatinine 1.3, glucose 241, calcium 7.9. Hemoglobin A1c 5.7. ASSESSMENT AND PLAN: 1. Acute on chronic hypoxemic and hypercapnic respiratory failure. This patient is still on mechanical ventilation. Pulmonary Department following this patient closely. We will follow their recommendations. 2. Diastolic heart failure exacerbation. Continue with Lasix, I decreased the dose from twice a day to once a day. We will continue to monitor the kidney function. BUN increased a little bit and creatinine has been stable. 3. Hypertension. His blood pressure has been stable. Continue with the same management for now. Yesterday I restarted this patient on carvedilol, but a lower dose. 4. Chronic obstructive pulmonary disease exacerbation. Continue with the same management. 5. Benign prostatic hypertrophy, aware. CRITICAL CARE TIME: 30 minutes. cc: Anatoliy Rubin MD
[2017-04-14] MEDS: MORPHINE IV PRN (20:55)
[2017-04-15] MEDS ORDERED: ATROPINE IV PRN (00:14)
[2017-04-15] MEDS: LOVENOX SUBQ SCH (01:53)
[2017-04-15] MEDS: ZOSYN 3.375 GM/NS 3.375 GM/50 ML IVPB IV SCH ×4 (01:54→19:19)
[2017-04-15] MEDS: DIPRIVAN 1% 1,000 MG/100 ML BOTTLE IV SCH (01:54)
[2017-04-15] MEDS ORDERED: ATROPINE SYRINGE ONE (02:30)
[2017-04-15] MEDS ORDERED: ATIVAN 20 MG in NS 190 ML IV SCH ×2 (03:00→03:48)
[2017-04-15] MEDS: DUONEB (A & A) INH SCH ×6 (03:11→23:21)
[2017-04-15] MEDS: DEPACON 1,000 MG in NS 50 ML IV SCH (03:52)
[2017-04-15 04:45] LABS: ALLEN TEST YES; BE 10.3 mmoll (-3.0-3.0); BLOOD TYPE ARTERIAL; DRAW SITE R RADIAL; METHB 0.9 % (0.0-1.5); O2(CT) 17.6 mL/dL (15.0-23.0); PO2(98.6) 108 mmHg (60-100); SAMPLE BLOOD; SAO2 98.7 % (95.0-100.0); SRATE 6 BPM; THB 12.9 g/dL (11.5-17.4); TVOL 700 mL; pH(98.6) 7.45 (7.35-7.45)
[2017-04-15] MEDS: SOLU-MEDROL IV SCH ×3 (04:45→20:22)
[2017-04-15 04:47] LABS: MODALITY VENTILATOR; PCO2(98.6) 52 mmHg (35-45)
[2017-04-15 05:02] LABS: HEMATOCRIT 39.5 % (42.0-52.0); HEMOGLOBIN 12.6 g/dL (14.0-18.0); MCH 30.6 PG (27-31); MCHC 31.9 g/dL (33-37); MCV 95.9 FL (81-99); MPV 10.5 FL (7.4-10.4); RBC 4.12 XMIL (4.7-6.1)
[2017-04-15 05:26] LABS: AGAP 20; ALBUMIN 3.1 g/dL (3.5-5.0); ALKALINE PHOSPHATASE 77 U/L (32-122); BUN 31 mg/dL (8-22); CALCIUM 8.5 mg/dL (8.8-10.2); CHLORIDE 97 mmol/L (98-107); COSMO 303; GOT 96 U/L (10-34); GPT 97 U/L (10-44); POTASSIUM 3.5 mmol/L (3.5-5.1); SODIUM 145 mmol/L (136-145); TCO2 28 mmol/L (25-35); TOTAL BILIRUBIN 0.44 mg/dL (0.20-1.00); TOTAL PROTEIN 6.2 g/dL (6.3-8.3)
[2017-04-15] MEDS: MORPHINE IV PRN ×5 (05:27→23:35)
--- NOTE | 2017-04-15 05:44 | EKG Report ---
Test Performed on : 04/15/2017 00:10:14 AM Test Reason : No order in [employer] Blood Pressure : / mmHG Vent. Rate : 041 BPM Atrial Rate : 041 BPM P-R Int : 186 ms QRS Dur : 100 ms QT Int : 520 ms P-R-T Axes : 054 008 014 degrees QTc Int : 429 ms Poor data quality, interpretation may be adversely affected Marked sinus bradycardia. 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
--- NOTE | 2017-04-15 05:44 | EKG Report ---
Test Performed on : 04/14/2017 11:52:50 PM Test Reason : No Order in [employer] Blood Pressure : / mmHG Vent. Rate : 048 BPM Atrial Rate : 048 BPM P-R Int : 194 ms QRS Dur : 094 ms QT Int : 472 ms P-R-T Axes : 067 014 019 degrees QTc Int : 421 ms Sinus bradycardia. Otherwise normal ECG When compared with ECG of 14-APR-2017 23:50, (Unconfirmed) T wave amplitude has increased in high-lateral leads 1 and AVL Confirmed by Norm Saenz DO ([id number]) on 04/17/2017 10:18:33 AM
[2017-04-15] MEDS: HUMULIN R SUBQ SCH ×4 (06:11→20:20)
[2017-04-15] MEDS: ATIVAN 20 MG in NS 190 ML IV SCH ×5 (07:25→23:08)
--- NOTE | 2017-04-15 07:35 | Diag Imaging Result Doc PS360 ---
EXAM: CHEST-PORTABLE HISTORY: respiratory failure TECHNIQUE: AP portable at 0500 COMMENT: There is an endotracheal tube with its tip in the thoracic inlet and an NG tube which passes below the diaphragm. There is pulmonary opacification in the left lower lobe as well as apparent pleural fluid. The inspiration is slightly better than on 04/14/2017. IMPRESSION: Left pleural effusion and lower lobe atelectasis versus pneumonia. Electronically signed by Art Larson 04/15/2017 7:32 AM
[2017-04-15] MEDS: LASIX IV SCH (08:22)
[2017-04-15] MEDS: NORVASC PO SCH (08:22)
[2017-04-15] MEDS: PROTONIX IV SCH (08:22)
[2017-04-15] MEDS: SODIUM CHLORIDE 0.9% INJ SCH (08:22)
[2017-04-15] MEDS ORDERED: DULCOLAX PR ONE (10:57)
[2017-04-15] MEDS: MIRALAX PO SCH (12:35)
--- NOTE | 2017-04-15 14:15 | PROGRESS NOTE ---
DATE: 04/15/2017 SUBJECTIVE: This patient is still on mechanical ventilation and sedated. The family members at the bedside. All their questions were answered. I do not see any significant change compared with yesterday but today this patient is having bradycardia. Cardiology Department has been consulted. OBJECTIVE: Vital Signs: Temperature 98.6 degrees, pulse 47, respiratory rate 12, blood pressure 142/77, oxygen saturation 90% on mechanical ventilation 60% FiO2. HEENT: Head normocephalic. No trauma. PERRLA. Neck: Supple. No JVD. No masses. Central trachea. Chest: Decreased breath sounds globally with mild crackles at the bases. No wheezing. Abdomen: Protuberant and soft. Nontender, nondistended. No hepatosplenomegaly. Extremity: 2+ lower extremity edema with some redness at the level of the shins and that as per the has been chronic. Neurological: The patient is sedated and intubated. LABORATORY: WBC 11.4, hemoglobin 12.6, hematocrit 39.5, platelets 224,000. Sodium 145, potassium 3.5, chloride 97, bicarbonate 28, BUN 31, creatinine 1.1, glucose 235, calcium 8.5, albumin 3.1. ASSESSMENT AND PLAN: 1. Acute on chronic hypoxemic and hypercapnic respiratory failure. This patient is still on mechanical ventilation. Pulmonary Department following this patient closely. We will follow their recommendations. 2. Bradycardia. We stopped all the possible medications that can cause bradycardia and we have consulted Cardiology Department. Pending recommendations. 3. Hypertension. The blood pressure is a little bit elevated. Continue with the same management for now. This patient was receiving carvedilol and amlodipine but we stopped it because of his bradycardia. Pending Cardiology recommendations. 4. Chronic obstructive pulmonary disease exacerbation. Continue with the same management. 5. BPH. Aware. CRITICAL CARE TIME: 35 minutes. cc: Anatoliy Rubin MD
--- NOTE | 2017-04-15 16:24 | ECHO REPORT ---
ORDER DATE: 04/15/2017 INDICATION: Respiratory distress, dyspnea. FINDINGS: 1. The right atrium is mildly enlarged at 4.6 cm. 2. Mild tricuspid regurgitation. Somewhat limited Doppler data to evaluate the RV systolic pressure. 3. Normal RV size and systolic function. 4. Trace pulmonic insufficiency. 5. Mild left atrial enlargement at 4.2 cm. 6. No mitral prolapse. Mild mitral regurgitation. 7. Normal LV size, end-diastolic dimension of 5.7. Moderate left ventricular hypertrophy. Posterior and interventricular septal wall thickness 1.4 and 1.6 cm respectively. Normal LV systolic function. The estimated EF is 65%. Definity echo contrast was used to delineate endocardial borders. Appeared to be normal segmental motion. 8. Aortic valve opens well. It is trileaflet. There is no evidence of stenosis. Moderate insufficiency is identified. 9. Aorta appears normal in visualized segments. 10. No pericardial effusion seen. cc: MD Eleanor Garcia PA
--- NOTE | 2017-04-15 16:34 | CONSULTATION ---
DATE OF CONSULTATION: 04/15/2017 IMPRESSION: 1. Bradycardia in sedated patient on beta-matthew. No indication of hemodynamic compromise related to bradycardia. 2. Respiratory failure, hypercapnia and hypoxemic. 3. Obstructive sleep apnea with poor tolerance of CPAP for chronic obstructive pulmonary disease. 4. Recurrent congestive heart failure (acute on chronic congestive heart failure) with mixed etiology. Left ventricular ejection fraction normal. Patient has diastolic heart failure and likely cor pulmonale to COPD and problematic obstructive sleep apnea. 5. Hypertension. 6. Chronic venous insufficiency. RECOMMENDATIONS: 1. Reduced beta-matthew dose is reasonable for any marked bradycardia. 2. Continue diuresis. HISTORY: This 66-year-old white male with past history of COPD, obstructive sleep apnea, chronic heart failure with mixed etiology, left ventricular ejection fraction, morbid obesity, hypertension, and chronic venous insufficiency was admitted with respiratory failure requiring intubation and mechanical ventilation. He and his had traveled to [place] several weeks ago and recently returned. While in [place] he was having some shortness of breath and had evaluation at the urgent care. After returning back from [place], he started having progressive increasing shortness of breath and started using his home oxygen continuously rather than just at night for the 3 days preceding admission. He has not had any orthopnea or chest pain. He did have development of progressive edema and it seemed that his Lasix became ineffective in helping him diurese. That is to say he seemed to not have much diuretic effect with the Lasix dose prescribed. The afternoon of admission he started to have worsening shortness of breath. His is going to bring him to the emergency room by car but his dyspnea worsened, precipitously. EMS was summoned. He was brought in by ambulance. He was intubated in the emergency room. He was noted to have hypercapnia and hypoxemia. He has been diuresed and is being treated for acute congestive heart failure, COPD, and possible pneumonitis. He was noted to have bradycardia and beta-matthew has been stopped. Noteworthy, he has been on sedation while he has been on mechanical ventilator. PAST MEDICAL HISTORY: 1. COPD. 2. Obstructive sleep apnea with poor tolerance to CPAP. Patient has been using nocturnal oxygen. 3. Morbid obesity. 4. Chronic diastolic heart failure. 5. Posttraumatic stress disorder. 6. Bipolar disorder. 7. Chronic low back pain. 8. Hypertension. 9. Venous insufficiency. PAST SURGICAL HISTORY: Appendectomy and tonsillectomy, also includes previous right hip surgery, and venous stripping. ALLERGIES: He is allergic or intolerant to Celebrex. MEDICATIONS: Prior to admission as listed. He had previously been on Lasix 60 mg p.o. b.i.d. He is also on Coreg. SOCIAL HISTORY: He is . He quit smoking about a year ago. He drinks 2-3 alcoholic beverages consisting of a shot of liquor daily. FAMILY HISTORY: Negative for premature coronary disease. REVIEW OF SYSTEMS: Not obtainable given patient's sedation on the ventilator. PHYSICAL EXAMINATION: General: This is a morbidly obese, older white male, sedated on ventilator. Vital Signs: As recorded include heart rate 55 to 60 beats per minute with ECG monitor showing sinus bradycardia. HEENT: Atraumatic, normocephalic. Mucous membranes are moist. Neck: Supple without discernible jugular distention. There are no carotid bruits. Chest: Auscultation of the chest reveals clear lung sinha anteriorly. Cardiac: Reveals a regular bradycardia without appreciable murmur or gallop. Abdomen: Soft, nontender. Bowel sounds normal. Extremities: Demonstrate trace pretibial edema. Neurologic: Reveals him to be still sedated. DIAGNOSTIC DATA: EKG demonstrates sinus bradycardia 41 beats per minute. cc: Javy Avalos MD
[2017-04-15] MEDS: 1/2 NS 1,000 ML IV SCH (16:52)
[2017-04-16] MEDS: MORPHINE IV PRN ×6 (01:32→20:04)
[2017-04-16] MEDS: LOVENOX SUBQ SCH (01:33)
[2017-04-16] MEDS: ZOSYN 3.375 GM/NS 3.375 GM/50 ML IVPB IV SCH ×4 (01:33→20:06)
[2017-04-16] MEDS: ATIVAN 20 MG in NS 190 ML IV SCH ×8 (02:00→20:49)
[2017-04-16] MEDS: DEPACON 1,000 MG in NS 50 ML IV SCH (02:28)
[2017-04-16] MEDS: DUONEB (A & A) INH SCH ×6 (03:20→23:20)
[2017-04-16] MEDS: SOLU-MEDROL IV SCH ×3 (04:34→20:07)
[2017-04-16 04:53] LABS: ALLEN TEST YES; BE 8.1 mmoll (-3.0-3.0); BLOOD TYPE ARTERIAL; DRAW SITE R RADIAL; METHB 0.9 % (0.0-1.5); O2(CT) 15.3 mL/dL (15.0-23.0); PO2(98.6) 63 mmHg (60-100); SAMPLE BLOOD; SAO2 92.4 % (95.0-100.0); SRATE 6 BPM; THB 12.1 g/dL (11.5-17.4); TVOL 700 mL; pH(98.6) 7.37 (7.35-7.45)
[2017-04-16 04:54] LABS: MODALITY VENTILATOR; PCO2(98.6) 61 mmHg (35-45)
[2017-04-16 05:29] LABS: MANUAL DIFF NEEDED? NO
[2017-04-16 05:33] LABS: BASO% 0.1 % (0.0-0.8); HEMATOCRIT 38.1 % (42.0-52.0); IMM GRAN# 0.12 X1000 (0.0-0.04); IMM GRAN% 1.2 % (0.0-0.5); LYMPH# 1.38 X1000 (1.2-3.4); LYMPH% 14.2 % (20.5-51.1); MCH 30.5 PG (27-31); MCHC 31.5 g/dL (33-37); MCV 96.9 FL (81-99); MONO# 0.97 X1000 (0.11-0.59); MPV 10.3 FL (7.4-10.4); NEUT% 74.5 % (42.2-75.2); PLT 212 X1000 (130-400); RBC 3.93 XMIL (4.7-6.1)
[2017-04-16 06:05] LABS: ALBUMIN 3.2 g/dL (3.5-5.0); POTASSIUM 3.8 mmol/L (3.5-5.1); TOTAL BILIRUBIN 0.43 mg/dL (0.20-1.00); TOTAL PROTEIN 5.9 g/dL (6.3-8.3)
[2017-04-16] MEDS: HUMULIN R SUBQ SCH ×4 (06:13→20:13)
--- NOTE | 2017-04-16 07:11 | Diag Imaging Result Doc PS360 ---
EXAM: CHEST-PORTABLE HISTORY: respiratory failure TECHNIQUE: AP portable at 0500 COMMENT: There is an endotracheal tube with its tip approximately 2 cm above the delon. There is volume loss and opacification of the left lower lobe. There is a left pleural effusion. Compared to the previous study of 04/15/2017 there has been no significant change. IMPRESSION: Left lower lobe atelectasis versus pneumonia. Left pleural effusion. Electronically signed by Art Larson 04/16/2017 7:08 AM
[2017-04-16] MEDS: MIRALAX PO SCH (08:53)
[2017-04-16] MEDS: SODIUM CHLORIDE 0.9% INJ SCH (08:53)
[2017-04-16] MEDS: NORVASC PO SCH (08:53)
[2017-04-16] MEDS: PROTONIX IV SCH (08:53)
[2017-04-16] MEDS: LASIX IV SCH (08:53)
--- NOTE | 2017-04-16 11:51 | PROGRESS NOTE ---
DATE: 04/16/2017 SUBJECTIVE: This patient is still on mechanical ventilation, his propofol has been stopped, and he is receiving Ativan p.r.n. Family members at the bedside. He is still bradycardic, but when we stimulate him, his heart rate increased to the 60s. OBJECTIVE: Vital Signs: Temperature 97.4 degrees, pulse 46, respiratory rate 12, blood pressure 129/73, oxygen saturation 94% on 60% FiO2 on mechanical ventilation. HEENT: Head normocephalic. No trauma. PERRLA. Neck: Supple. No JVD. No masses. Central trachea. Chest: Decreased breath sounds globally with mild crackles at the bases. No wheezing. Abdomen: Protuberant and soft. Nontender and nondistended. No hepatosplenomegaly. Extremity: With 2+ lower extremity edema with some redness at the level of the shins, and that, as per the , has been chronic. Neurologic: The patient is on mechanical ventilation. He is opening his eyes spontaneously, and apparently he has been following commands on and off. LABORATORY: WBC 9.7, hemoglobin 12, hematocrit 38.1, platelet 212,000. Sodium 142, potassium 3.8, chloride 99, bicarbonate 31, BUN 34, creatinine 1.2, glucose 224, calcium 8. ASSESSMENT AND PLAN: 1. Acute on chronic hypoxemic and hypercapnic respiratory failure. This patient is still on mechanical ventilation. Pulmonary Department is following this patient closely. We will follow their recommendations. 2. Bradycardia. We stopped all the possible medications that can cause bradycardia, Cardiology Department has been consulted. We will follow their recommendations. 3. Hypertension, stable. Continue with the same management. 4. Chronic obstructive pulmonary disease exacerbation. Continue with the same treatment for now. 5. Benign prostatic hypertrophy, aware. CRITICAL CARE TIME: 30 minutes. cc: nAatoliy Rubin MD
[2017-04-16] MEDS: 1/2 NS 1,000 ML IV SCH (12:48)
--- NOTE | 2017-04-16 17:57 | PROGRESS NOTE ---
DATE: 04/16/2017 CHIEF COMPLAINT: Shortness of breath. REASON FOR EVALUATION: Bradycardia. SUBJECTIVE: Mr. Cortes is still intubated. He is not on any pressors. They have discontinued Diprivan. He is on Ativan as needed for sedation. is at the bedside. He is opening his eyes and moving his right hand. He seems to be resting comfortably. OBJECTIVE: Vital signs: Blood pressure 144/63, temperature 98.6, pulse 86, however, it dropped to 52, respirations 17. General: He is somewhat arousable. HEENT: Unremarkable. He has an NG tube and also an orotracheal tube. Chest: Symmetrical breath sounds. No rales. Cardiac: Heart sounds are regular and rhythmic. I do not hear a gallop or murmur. Abdomen: Obese. Slightly distended. Extremities: Showed 1-2+ edema bilaterally. Neurologic: He is sedated. He really does not cooperate a whole lot with exam, although at times he appears to move spontaneously the arms and the legs. LABORATORY DATA: Sodium 142, potassium 3.8, BUN 34, creatinine 1.2, albumin 3.2. Hemoglobin A1c is 5.7. Magnesium is normal. Chest x-ray done today reported left lower lobe atelectasis versus pneumonia and pleural effusion. IMPRESSION: 1. Patient with persistent bradycardia. Etiology of this is unclear. He may well have significant coronary artery disease. 2. Chronic obstructive pulmonary disease and respiratory failure. 3. History of sleep apnea syndrome. 4. Obesity. 5. History of hypertension and diastolic heart failure. RECOMMENDATIONS: At this point in time we will continue to observe. No specific cardiac intervention appears to be warranted at this particular moment. We will see how he evolves and we will consider further intervention down the road. Thank you again for the opportunity to participate in his evaluation. cc: Amadou Brand MD
[2017-04-17] MEDS: ATIVAN 20 MG in NS 190 ML IV SCH ×9 (00:14→23:52)
[2017-04-17] MEDS: ZOSYN 3.375 GM/NS 3.375 GM/50 ML IVPB IV SCH ×4 (01:43→19:48)
[2017-04-17] MEDS: LOVENOX SUBQ SCH (01:44)
[2017-04-17] MEDS: MORPHINE IV PRN ×5 (01:44→23:12)
[2017-04-17] MEDS: DEPACON 1,000 MG in NS 50 ML IV SCH (02:37)
[2017-04-17] MEDS: DUONEB (A & A) INH SCH ×5 (03:20→23:16)
[2017-04-17] MEDS: SOLU-MEDROL IV SCH ×3 (04:51→20:30)
[2017-04-17 04:55] LABS: ALLEN TEST YES; BE 4.8 mmoll (-3.0-3.0); BLOOD TYPE ARTERIAL; DRAW SITE R RADIAL; METHB 0.6 % (0.0-1.5); O2(CT) 24.8 mL/dL (15.0-23.0); PO2(98.6) 71 mmHg (60-100); SAMPLE BLOOD; SAO2 94.7 % (95.0-100.0); SRATE 6 BPM; THB 19.1 g/dL (11.5-17.4); TVOL 700 mL; pH(98.6) 7.35 (7.35-7.45)
[2017-04-17 04:57] LABS: MODALITY VENTILATOR; PCO2(98.6) 60 mmHg (35-45)
[2017-04-17 05:34] LABS: HEMATOCRIT 39.7 % (42.0-52.0); HEMOGLOBIN 12.4 g/dL (14.0-18.0); MCH 30.2 PG (27-31); MCHC 31.2 g/dL (33-37); MCV 96.8 FL (81-99); MPV 10.8 FL (7.4-10.4); RBC 4.1 XMIL (4.7-6.1)
[2017-04-17 05:50] LABS: AGAP 15; ALKALINE PHOSPHATASE 68 U/L (32-122); BUN 34 mg/dL (8-22); CALCIUM 8.1 mg/dL (8.8-10.2); CHLORIDE 101 mmol/L (98-107); COSMO 305; GOT 191 U/L (10-34); GPT 267 U/L (10-44); POTASSIUM 4.2 mmol/L (3.5-5.1); SODIUM 146 mmol/L (136-145); TCO2 30 mmol/L (25-35); TOTAL BILIRUBIN 0.67 mg/dL (0.20-1.00); TOTAL PROTEIN 5.9 g/dL (6.3-8.3)
[2017-04-17] MEDS: HUMULIN R SUBQ SCH ×4 (06:05→20:32)
--- NOTE | 2017-04-17 07:27 | Diag Imaging Result Doc PS360 ---
EXAM: CHEST-PORTABLE HISTORY: respiratory failure TECHNIQUE: AP portable chest at 0500 COMMENT: There is volume loss and blunting of the costophrenic angle on the left. This was also present on 04/16/2017. The patient is rotated slightly to the left. There is an endotracheal tube with its tip 2 cm above the delon and a PICC line on the right with its tip in the right atrium. IMPRESSION: Atelectasis versus pneumonia left lower lobe with left pleural effusion. Electronically signed by Art Larson 04/17/2017 7:25 AM
[2017-04-17] MEDS: NORVASC PO SCH (09:00)
[2017-04-17] MEDS: SODIUM CHLORIDE 0.9% INJ SCH (09:00)
[2017-04-17] MEDS: LASIX IV SCH (09:00)
[2017-04-17] MEDS: PROTONIX IV SCH (09:00)
[2017-04-17] MEDS: MIRALAX PO SCH (09:01)
[2017-04-17] MEDS: 1/2 NS 1,000 ML IV SCH (09:09)
--- NOTE | 2017-04-17 09:37 | PROGRESS NOTE ---
DATE: 04/17/2017 SUBJECTIVE: This patient is still on mechanical ventilation. He has been on Ativan p.r.n. He is able to open his eyes spontaneously and also with voice stimulation. He has been following commands a little bit more consistent than yesterday. OBJECTIVE: Vital Signs: Temperature 97.2 degrees, pulse right now on the monitor is 68, respiratory rate 11, blood pressure 149/70, oxygen saturation 92 on mechanical ventilation, 50% FiO2. HEENT: Head normocephalic. No trauma. PERRLA. Neck: Supple. No JVD. No masses. Central trachea. Chest: Decreased breath sounds globally with mild crackles at the bases. Decreased breath sounds at the level of the left base. No wheezing. Abdomen: Protuberant and soft. Nontender, nondistended. No hepatosplenomegaly. Extremities: There is 2+ edema with some redness at the level of the shins. That, as per the , has been chronic. Neurological Examination: The patient is on mechanical ventilation. He is opening his eyes spontaneously and with voice stimulation. He has been following commands apparently more consistent today. Laboratory: WBC 9.8, hemoglobin 12.4, hematocrit 39.7, platelets 209,000. PCO2 60. Sodium 146, potassium 4.2, chloride 101, bicarbonate 30, BUN 30, creatinine 1.1, glucose 215, calcium 8.1. ASSESSMENT AND PLAN: 1. Acute on chronic hypoxic and hypercapnic respiratory failure. Continue with mechanical ventilation. Pulmonary department is following this patient closely. We will continue to follow their recommendations. 2. Bradycardia. At this moment, this patient is not bradycardic and upon stimulation, the heart rate goes up. We will continue to follow. 3. Hypertension, stable. Continue with the same management. 4. Hypernatremia. I will add water flushes to his tube feedings and I will monitor the blood sodium. 5. Benign prostatic hypertrophy. Aware. 6. Hyperglycemia. This is likely related to his tube feedings. He has been on sliding scale insulin but today I will start this patient on a low dose Lantus. His hemoglobin A1c is normal. CRITICAL CARE TIME: 35 minutes. cc: Anatoliy Rubin MD
[2017-04-17] MEDS: LANTUS SUBQ SCH (09:44)
[2017-04-17 12:19] LABS: ALLEN TEST YES; BE 10.3 mmoll (-3.0-3.0); BLOOD TYPE ARTERIAL; DRAW SITE R RADIAL; PO2(98.6) 59 mmHg (60-100); SAMPLE BLOOD; pH(98.6) 7.42 (7.35-7.45)
[2017-04-17 12:21] LABS: MODALITY VENTILATOR; PCO2(98.6) 57 mmHg (35-45)
[2017-04-18] MEDS: LOVENOX SUBQ SCH (01:58)
[2017-04-18] MEDS: MORPHINE IV PRN ×2 (01:58→05:38)
[2017-04-18] MEDS: ZOSYN 3.375 GM/NS 3.375 GM/50 ML IVPB IV SCH ×4 (01:58→20:31)
[2017-04-18] MEDS: DEPACON 1,000 MG in NS 50 ML IV SCH (02:22)
[2017-04-18] MEDS: ATIVAN 20 MG in NS 190 ML IV SCH ×2 (02:27→06:15)
[2017-04-18] MEDS: DUONEB (A & A) INH SCH ×6 (03:25→23:35)
[2017-04-18 04:46] LABS: ALLEN TEST YES; BE 5.5 mmoll (-3.0-3.0); BLOOD TYPE ARTERIAL; DRAW SITE R RADIAL; METHB 0.8 % (0.0-1.5); O2(CT) 22.5 mL/dL (15.0-23.0); PO2(98.6) 70 mmHg (60-100); SAMPLE BLOOD; SAO2 94.9 % (95.0-100.0); SRATE 6 BPM; THB 17.3 g/dL (11.5-17.4); TVOL 700 mL; pH(98.6) 7.37 (7.35-7.45)
[2017-04-18 04:47] LABS: MODALITY VENTILATOR; PCO2(98.6) 57 mmHg (35-45)
[2017-04-18] MEDS: SOLU-MEDROL IV SCH ×3 (05:38→20:30)
[2017-04-18] MEDS: 1/2 NS 1,000 ML IV SCH (05:41)
[2017-04-18 05:53] LABS: HEMATOCRIT 36.6 % (42.0-52.0); HEMOGLOBIN 11.5 g/dL (14.0-18.0); MCH 30.2 PG (27-31); MCHC 31.4 g/dL (33-37); MCV 96.1 FL (81-99); MPV 11.2 FL (7.4-10.4); RBC 3.81 XMIL (4.7-6.1)
[2017-04-18 06:04] LABS: AGAP 10; ALBUMIN 2.7 g/dL (3.5-5.0); ALKALINE PHOSPHATASE 68 U/L (32-122); BUN 34 mg/dL (8-22); CALCIUM 7.7 mg/dL (8.8-10.2); CHLORIDE 102 mmol/L (98-107); COSMO 304; GOT 139 U/L (10-34); GPT 317 U/L (10-44); SODIUM 144 mmol/L (136-145); TCO2 32 mmol/L (25-35); TOTAL BILIRUBIN 0.49 mg/dL (0.20-1.00); TOTAL PROTEIN 5.2 g/dL (6.3-8.3)
[2017-04-18] MEDS: HUMULIN R SUBQ SCH ×4 (06:07→20:24)
--- NOTE | 2017-04-18 07:20 | Diag Imaging Result Doc PS360 ---
EXAM: CHEST-PORTABLE HISTORY: respiratory failure TECHNIQUE: Portable COMPARISON: 04/17/2017 FINDINGS: No change in the endotracheal tube, nasogastric tube, or right-sided PICC line. There is a small left-sided pleural effusion with basilar atelectasis. Appearance is similar to that of the prior exam. The right lung remains well expanded and clear. The heart is mildly prominent. IMPRESSION: Stable chest. Electronically signed by Dhaval Castro 04/18/2017 7:18 AM
[2017-04-18] MEDS: LASIX IV SCH (08:28)
[2017-04-18] MEDS: NORVASC PO SCH (08:28)
[2017-04-18] MEDS: PROTONIX IV SCH (08:28)
[2017-04-18] MEDS: SODIUM CHLORIDE 0.9% INJ SCH (08:28)
[2017-04-18] MEDS: MIRALAX PO SCH (08:28)
[2017-04-18] MEDS: LANTUS SUBQ SCH ×2 (08:32→09:03)
[2017-04-18 10:47] LABS: ALLEN TEST YES; BE 9.7 mmoll (-3.0-3.0); BLOOD TYPE ARTERIAL; DRAW SITE R RADIAL; METHB 1.1 % (0.0-1.5); O2(CT) 16.1 mL/dL (15.0-23.0); PO2(98.6) 67 mmHg (60-100); SAMPLE BLOOD; SAO2 95.3 % (95.0-100.0); THB 12.3 g/dL (11.5-17.4); pH(98.6) 7.43 (7.35-7.45)
[2017-04-18 10:49] LABS: MODALITY VENTILATOR; PCO2(98.6) 54 mmHg (35-45)
--- NOTE | 2017-04-18 13:48 | PROGRESS NOTE ---
DATE: 04/18/2017 SUBJECTIVE: This patient is still on mechanical ventilation and sedated. No acute events overnight. No big changes compared with yesterday. We will try to do a weaning trial to see if we are going to be able to extubate him. OBJECTIVE: Vital Signs: Temperature 97.7 degrees, pulse 53, respiratory rate 12, blood pressure 147/68, oxygen saturation 94% on mechanical ventilation, 50% FiO2. HEENT: Head normocephalic. No trauma. PERRLA. Neck: Supple. No JVD. No masses. Central trachea. Chest: Decreased breath sounds globally with light crackles at the bases, mostly at the level of the left base. No wheezing. Abdomen: Protuberant and soft, nontender, nondistended. No hepatosplenomegaly. Extremities: There is 2+ lower extremity edema with some redness at the level of his shins and that, as per the , has been chronic. Neurological: This patient is on mechanical ventilation. No changes compared with yesterday. LABORATORY: WBC 8.1, hemoglobin 11.5, hematocrit 36.6, platelets 200,000. Sodium 144, potassium 4, chloride 102, bicarbonate 32, BUN 34, creatinine 1, glucose 269, calcium 77, albumin 2.7. ASSESSMENT AND PLAN: 1. Acute on chronic hypoxic and hypercapnic respiratory failure. Continue with mechanical ventilation. Pulmonary department is following this patient closely. We will try to do a weaning trial to see if we can extubate this patient. We will continue to follow their recommendations. 2. Bradycardia, stable. Continue to monitor. 3. Hypertension. Continue with the same management. 4. Hypernatremia, resolved. 5. Benign prostatic hypertrophy, aware. 6. Hyperglycemia. This is likely related to his tube feedings and steroids. I will increase the dose of Lantus from 10 to 20 units daily. CRITICAL CARE TIME: 35 minutes. cc: Anatoliy Rubin MD
[2017-04-18] MEDS ORDERED: ROMAZICON IV ONE (16:25)
[2017-04-18] MEDS: HALDOL IV PRN (23:41)
[2017-04-19] MEDS: 1/2 NS 1,000 ML IV SCH (02:02)
[2017-04-19] MEDS: LOVENOX SUBQ SCH (02:09)
[2017-04-19] MEDS: ZOSYN 3.375 GM/NS 3.375 GM/50 ML IVPB IV SCH ×3 (02:09→13:15)
[2017-04-19] MEDS: DEPACON 1,000 MG in NS 50 ML IV SCH (02:41)
[2017-04-19] MEDS: DUONEB (A & A) INH SCH ×6 (03:15→22:56)
[2017-04-19 04:37] LABS: ALLEN TEST YES; BE 9.5 mmoll (-3.0-3.0); BLOOD TYPE ARTERIAL; DRAW SITE R RADIAL; METHB 1.2 % (0.0-1.5); O2(CT) 16.8 mL/dL (15.0-23.0); PCO2(98.6) 42 mmHg (35-45); PO2(98.6) 78 mmHg (60-100); SAMPLE BLOOD; SAO2 97.5 % (95.0-100.0); THB 12.6 g/dL (11.5-17.4); pH(98.6) 7.51 (7.35-7.45)
[2017-04-19 04:39] LABS: MODALITY BI PAP
[2017-04-19 04:43] LABS: HEMATOCRIT 38.5 % (42.0-52.0); HEMOGLOBIN 12.3 g/dL (14.0-18.0); MCH 30.8 PG (27-31); MCHC 31.9 g/dL (33-37); MCV 96.3 FL (81-99); MPV 11.1 FL (7.4-10.4)
[2017-04-19 05:00] LABS: AGAP 13; ALBUMIN 3.7 g/dL (3.5-5.0); ALKALINE PHOSPHATASE 66 U/L (32-122); BUN 36 mg/dL (8-22); CALCIUM 8.3 mg/dL (8.8-10.2); CHLORIDE 101 mmol/L (98-107); COSMO 301; GOT 65 U/L (10-34); GPT 271 U/L (10-44); POTASSIUM 3.8 mmol/L (3.5-5.1); SODIUM 145 mmol/L (136-145); TCO2 31 mmol/L (25-35); TOTAL BILIRUBIN 0.66 mg/dL (0.20-1.00)
[2017-04-19] MEDS: SOLU-MEDROL IV SCH ×2 (05:16→15:59)
[2017-04-19] MEDS: HUMULIN R SUBQ SCH ×4 (06:59→20:15)
--- NOTE | 2017-04-19 07:29 | Diag Imaging Result Doc PS360 ---
CHEST-PORTABLE - 04/19/2017 INDICATION: respiratory failure TECHNIQUE: COMPARISON: 04/18/2017 FINDINGS: The endotracheal tube is no longer visible. Stable nasogastric tube and right PICC line. Stable cardiomegaly. Stable left basilar consolidation and/or effusion. No new infiltrates on the right. IMPRESSION: Removal of the endotracheal tube. Otherwise no change from prior. Electronically signed by Eitan Mendez 04/19/2017 7:27 AM
[2017-04-19] MEDS: SODIUM CHLORIDE 0.9% INJ SCH (08:20)
[2017-04-19] MEDS: MIRALAX PO SCH ×2 (08:20→10:25)
[2017-04-19] MEDS: LASIX IV SCH (08:21)
[2017-04-19] MEDS: PROTONIX IV SCH (08:21)
[2017-04-19] MEDS: NORVASC PO SCH ×2 (08:21→10:25)
[2017-04-19] MEDS: LANTUS SUBQ SCH (08:39)
[2017-04-19] MEDS ORDERED: INSULIN PEN NEEDLES ONE (08:40)
[2017-04-19] MEDS ORDERED: APRESOLINE IV PRN (09:40)
--- NOTE | 2017-04-19 10:12 | PROGRESS NOTE ---
DATE: 04/19/2017 SUBJECTIVE: This patient was extubated yesterday and he is getting oxygen through a mask at 40% FiO2. The oxygen saturation has been around 90-93%. He is not in respiratory distress at this moment. Family members at the bedside. We discussed about his valproic acid that he was taking at home. The said that he has a history of PTSD and his psychiatrist recommended to use this treatment for him. OBJECTIVE: Vital Signs: Temperature 99.5 degrees, pulse 75, respiratory rate 17, blood pressure 147/77, oxygen saturation 92 on a mask, 40% FiO2. HEENT: Head normocephalic. No trauma. PERRLA. Neck: Supple. No JVD. No masses. Central trachea. Chest: Decreased breath sounds globally with crackles at the bases, mostly at the level of the left side, base. No wheezing. Abdomen: Protuberant, soft, nontender, nondistended. No hepatosplenomegaly. Extremities: There is 2+ lower extremity edema with some redness at the level of the shins and that, as per the , has been chronic. Neurological Examination: The patient is sleepy. He is not following commands for me but as per the nurse, he was following commands in the morning, moving his toes and squeezing her hand. Laboratory: WBC 11.5, hemoglobin 12.3, hematocrit 38.5, platelets 193,000. Sodium 145, potassium 3.8, chloride 101, bicarbonate 31, BUN 36, creatinine 0.9, glucose 178, calcium 8.3. Albumin 3.7. ASSESSMENT AND PLAN: 1. Acute on chronic hypoxic and hypercapnic respiratory failure. Continue with oxygen supplementation. Pulmonary department following this patient closely. This patient was extubated yesterday. We will continue to monitor this patient in the intensive care unit. 2. Bradycardia. Actually at this moment, his heart rate has been in the 70s. We will monitor. 3. Hypertension. I added hydralazine 3 times a day to control his blood pressure. He is already on amlodipine. 4. Hypernatremia, resolved. 5. Benign prostatic hypertrophy, aware. 6. History of posttraumatic stress disorder. Continue with the same treatment. 7. Hyperglycemia. Continue with the same management. CRITICAL CARE TIME: 35 minutes. cc: Anatoliy Rubin MD
--- NOTE | 2017-04-19 10:13 | Diag Imaging Result Doc PS360 ---
CHEST-PORTABLE - 04/19/2017 at 1000 INDICATION: NGT placement TECHNIQUE: COMPARISON: 0500 FINDINGS: There is a stable nasogastric tube in good position with the tip in the stomach IMPRESSION: Nasogastric tube tip in the stomach Electronically signed by Eitan Mendez 04/19/2017 10:11 AM
[2017-04-19] MEDS: APRESOLINE PO SCH ×2 (13:15→20:15)
[2017-04-19] MEDS: ZOSYN 3.375 GM in NS 50 ML IV SCH (19:39)
[2017-04-19] MEDS: HALDOL IV PRN (19:40)
[2017-04-19] MEDS: ATIVAN IV PRN (23:02)
[2017-04-19 23:55] LABS: ALLEN TEST YES; BE 10.3 mmoll (-3.0-3.0); BLOOD TYPE ARTERIAL; DRAW SITE R RADIAL; METHB 1.1 % (0.0-1.5); O2(CT) 18.6 mL/dL (15.0-23.0); PCO2(98.6) 42 mmHg (35-45); PO2(98.6) 88 mmHg (60-100); SAMPLE BLOOD; SAO2 98.5 % (95.0-100.0); THB 13.8 g/dL (11.5-17.4); pH(98.6) 7.52 (7.35-7.45)
[2017-04-19 23:56] LABS: MODALITY BI PAP
[2017-04-20 00:04] LABS: AGAP 9; BUN 36 mg/dL (8-22); CALCIUM 8.7 mg/dL (8.8-10.2); CHLORIDE 102 mmol/L (98-107); COSMO 296; MAGNESIUM 2.5 mg/dL (1.5-2.7); POTASSIUM 3.7 mmol/L (3.5-5.1); SODIUM 143 mmol/L (136-145); TCO2 32 mmol/L (25-35)
[2017-04-20] MEDS: 1/2 NS 1,000 ML IV SCH ×2 (00:31→17:48)
[2017-04-20] MEDS: ZOSYN 3.375 GM in NS 50 ML IV SCH ×4 (01:56→19:26)
[2017-04-20] MEDS: LOVENOX SUBQ SCH (01:56)
[2017-04-20] MEDS: DEPACON 1,000 MG in NS 50 ML IV SCH (02:33)
[2017-04-20] MEDS: HALDOL IV PRN (03:10)
[2017-04-20] MEDS: DUONEB (A & A) INH SCH ×6 (03:27→23:12)
[2017-04-20] MEDS: APRESOLINE PO SCH ×3 (04:11→20:10)
[2017-04-20] MEDS: SOLU-MEDROL IV SCH ×2 (04:11→16:48)
[2017-04-20 04:45] LABS: ALLEN TEST YES; BE 9.3 mmoll (-3.0-3.0); BLOOD TYPE ARTERIAL; DRAW SITE R RADIAL; METHB 1.1 % (0.0-1.5); O2(CT) 19.7 mL/dL (15.0-23.0); PCO2(98.6) 46 mmHg (35-45); PO2(98.6) 61 mmHg (60-100); SAMPLE BLOOD; SAO2 93.3 % (95.0-100.0); THB 15.5 g/dL (11.5-17.4); pH(98.6) 7.48 (7.35-7.45)
[2017-04-20 04:46] LABS: MODALITY CANNULA
--- NOTE | 2017-04-20 05:13 | EKG Report ---
Test Performed on : 04/19/2017 11:22:09 PM Test Reason : bradycardia Blood Pressure : / mmHG Vent. Rate : 073 BPM Atrial Rate : 073 BPM P-R Int : 208 ms QRS Dur : 092 ms QT Int : 432 ms P-R-T Axes : 060 010 026 degrees QTc Int : 475 ms Sinus rhythm. with premature atrial complexes. [place] interval (when present) Nonspecific ST abnormality Abnormal ECG When compared with ECG of 15-APR-2017 00:10, premature atrial complexes. are now present Vent. rate has increased BY 32 BPM T wave inversion now evident in Inferior leads Confirmed by Norm Saenz DO ([id number]) on 04/23/2017 3:29:44 PM
[2017-04-20 05:39] LABS: HEMATOCRIT 38.6 % (42.0-52.0); HEMOGLOBIN 12.4 g/dL (14.0-18.0); MCH 30.8 PG (27-31); MCHC 32.1 g/dL (33-37); MCV 95.8 FL (81-99); MPV 10.8 FL (7.4-10.4); RBC 4.03 XMIL (4.7-6.1)
[2017-04-20 07:10] LABS: AGAP 12; ALBUMIN 3.4 g/dL (3.5-5.0); ALKALINE PHOSPHATASE 66 U/L (32-122); BUN 33 mg/dL (8-22); CHLORIDE 102 mmol/L (98-107); COSMO 295; GOT 61 U/L (10-34); GPT 224 U/L (10-44); POTASSIUM 3.5 mmol/L (3.5-5.1); SODIUM 144 mmol/L (136-145); TCO2 30 mmol/L (25-35); TOTAL BILIRUBIN 0.58 mg/dL (0.20-1.00); TOTAL PROTEIN 5.7 g/dL (6.3-8.3)
[2017-04-20] MEDS: HUMULIN R SUBQ SCH ×4 (07:11→20:16)
--- NOTE | 2017-04-20 07:31 | Diag Imaging Result Doc PS360 ---
EXAM: CHEST-PORTABLE INDICATION: respiratory failure TECHNIQUE: One view COMPARISON: 04/19/2017 FINDINGS: Support tubes and lines are in stable positions. Inspiration is suboptimal. There is stable cardiomegaly and pulmonary venous congestion. Left basilar consolidation and/or effusion appears slightly less dense. Cardiac silhouette is stable. IMPRESSION: Slight improvement of consolidation versus effusion at the left lung base. Electronically signed by Chapo Shore 04/20/2017 7:28 AM
[2017-04-20] MEDS: SODIUM CHLORIDE 0.9% INJ SCH (08:40)
[2017-04-20] MEDS: LANTUS SUBQ SCH (08:40)
[2017-04-20] MEDS: LASIX IV SCH (08:40)
[2017-04-20] MEDS: PROTONIX IV SCH (08:40)
[2017-04-20] MEDS: NORVASC PO SCH ×2 (08:40→20:10)
[2017-04-20] MEDS: MIRALAX PO SCH (08:40)
--- NOTE | 2017-04-20 12:38 | PROGRESS NOTE ---
DATE: 04/20/2017 SUBJECTIVE: Patient extubated 2 days ago. Requiring 5 L of oxygen by nasal cannula. Follows basic commands as per nursing staff. No family at bedside. OBJECTIVE: Vital Signs: Temperature 97.9 degrees, heart rate 70, respiratory rate 18, blood pressure 162/91, O2 saturation 95% on 5 L nasal cannula. General Examination. This is a chronically ill-looking and frail, 66-year-old, male, lying in bed, in no acute distress. HEENT: Head is normocephalic and atraumatic. Anicteric sclerae and pale conjunctivae. Mucous membranes very dry. Neck: Supple. No JVD noted. No carotid bruits. No lymphadenopathy. No thyromegaly. Cardiovascular Examination: S1 and S2 are heard. No murmurs, gallops, or rubs. Bradycardic. Respiratory Examination: Decreased breath sounds globally with some coarse breath sounds in both bases, mostly on the left side. There is no wheezing or crackles. Patient is not using any accessory muscles or having work of breathing. Abdomen: Soft, nondistended. No organomegaly noted. Extremities: There is 2+ pedal edema in both lower extremities with some redness at the level of the shins. Neurological Examination: Patient is sleepy. He does not follow commands for me. As per nursing, he was following commands in the morning. Laboratory Data: White cell count 11.15, hemoglobin 12.4, hematocrit 38.6, platelets 192,000. ABG shows pH 7.48, pCO2 of 46. BMP is remarkable for a glucose of 115. ASSESSMENT AND PLAN: 1. Acute on chronic hypoxic and hypercapnic respiratory failure. Patient extubated 2 days ago. By now, requiring 5 L of oxygen by nasal cannula. Pulmonary is following this patient. We will follow recommendations. I think because his oxygen needs are really way high and considering his medical condition, we will keep this patient 1 more day here in the unit. 2. Sinus bradycardia. Heart rate is sometimes in the 60s and 70s. Dr. Avalos from cardiology following this patient. 3. Hypertension. The patient is on amlodipine 5 mg orally daily and blood pressure is really high. Yesterday, he added hydralazine 3 times per day. I think he needs to be on amlodipine twice a day. We will wait at least a few days to see if this medication is working or not. 4. Hypernatremia, resolved. 5. Benign prostatic hypertrophy. Aware. We will continue home medications. 6. History of posttraumatic stress disorder. Patient is on valproic acid. We will continue with the same management. 7. Hyperglycemia. We will continue with the same management. 8. Disposition. Patient is going to stay in the unit at least today because of his oxygen needs and also because he is confused and does not follow commands, at least for 1 more day because of his oxygen needs and also because that he is confused. We are going to monitor him here closely. cc: Josue Whaley MD
[2017-04-20] MEDS: ATIVAN IV PRN (23:04)
[2017-04-21] MEDS: ZOSYN 3.375 GM in NS 50 ML IV SCH ×4 (01:38→21:10)
[2017-04-21] MEDS: LOVENOX SUBQ SCH (01:39)
[2017-04-21] MEDS: DUONEB (A & A) INH SCH ×6 (03:15→23:40)
[2017-04-21] MEDS: DEPACON 1,000 MG in NS 50 ML IV SCH (03:24)
[2017-04-21] MEDS: HALDOL IV PRN ×2 (03:24→21:10)
[2017-04-21] MEDS: SOLU-MEDROL IV SCH (04:33)
[2017-04-21 04:57] LABS: ALLEN TEST YES; BE 8.3 mmoll (-3.0-3.0); BLOOD TYPE ARTERIAL; DRAW SITE R RADIAL; METHB 0.9 % (0.0-1.5); O2(CT) 24.8 mL/dL (15.0-23.0); PO2(98.6) 83 mmHg (60-100); SAMPLE BLOOD; SAO2 97.2 % (95.0-100.0); THB 18.7 g/dL (11.5-17.4); pH(98.6) 7.44 (7.35-7.45)
[2017-04-21 04:58] LABS: MODALITY CANNULA; PCO2(98.6) 51 mmHg (35-45)
[2017-04-21 05:03] LABS: HEMATOCRIT 39.1 % (42.0-52.0); HEMOGLOBIN 12.7 g/dL (14.0-18.0); MCH 30.4 PG (27-31); MCHC 32.5 g/dL (33-37); MCV 93.5 FL (81-99); MPV 11.1 FL (7.4-10.4); RBC 4.18 XMIL (4.7-6.1)
[2017-04-21 05:17] LABS: AGAP 12; ALBUMIN 3.2 g/dL (3.5-5.0); ALKALINE PHOSPHATASE 71 U/L (32-122); BUN 24 mg/dL (8-22); CALCIUM 8.4 mg/dL (8.8-10.2); CHLORIDE 103 mmol/L (98-107); COSMO 294; GOT 40 U/L (10-34); GPT 182 U/L (10-44); POTASSIUM 3.4 mmol/L (3.5-5.1); SODIUM 146 mmol/L (136-145); TCO2 31 mmol/L (25-35); TOTAL BILIRUBIN 0.59 mg/dL (0.20-1.00); TOTAL PROTEIN 5.9 g/dL (6.3-8.3)
[2017-04-21] MEDS: APRESOLINE PO SCH ×3 (05:46→21:11)
[2017-04-21] MEDS: HUMULIN R SUBQ SCH ×4 (06:14→21:15)
--- NOTE | 2017-04-21 07:16 | Diag Imaging Result Doc PS360 ---
EXAM: CHEST-1 VIEW HISTORY: NG placement TECHNIQUE: Chest abdomen COMPARISON: None. FINDINGS: A nasogastric tube overlies the esophagus and stomach. This is similar in position to the study from 04/20/2017. No free air beneath the diaphragm. IMPRESSION: Nasogastric tube overlies the esophagus and stomach. Electronically signed by Dhaval Castro 04/21/2017 7:14 AM
--- NOTE | 2017-04-21 07:23 | Diag Imaging Result Doc PS360 ---
EXAM: CHEST-PORTABLE HISTORY: respiratory failure TECHNIQUE: Portable COMPARISON: 04/20/2017 FINDINGS: No change in the right-sided PICC line. Nasogastric tube overlies the esophagus and stomach. Heart remains mildly prominent. Central vascular distention. Left basilar atelectasis with a small left pleural effusion present. There are scattered granuloma. IMPRESSION: No interval improvement. Electronically signed by Dhaval Castro 04/21/2017 7:21 AM
[2017-04-21] MEDS: LASIX IV SCH (08:53)
[2017-04-21] MEDS: LANTUS SUBQ SCH (08:53)
[2017-04-21] MEDS: SODIUM CHLORIDE 0.9% INJ SCH (08:53)
[2017-04-21] MEDS: PROTONIX IV SCH (08:53)
[2017-04-21] MEDS: NORVASC PO SCH ×2 (08:54→21:11)
[2017-04-21] MEDS: MIRALAX PO SCH (09:03)
--- NOTE | 2017-04-21 11:32 | PROGRESS NOTE ---
DATE: 04/21/2017 SUBJECTIVE: Patient was extubated 3 days ago. Now is more awake and alert. Follow commands now. He is using oxygen by Ventimask. OBJECTIVE: Vital Signs: Temperature 98.4 degrees, heart rate 80, respiratory rate 14, blood pressure 169/95, O2 saturation 95% on 5 L nasal cannula. General Examination: This is a chronically ill-looking and frail, 66-year-old, male, lying in bed, in no acute distress. HEENT: Head is normocephalic and atraumatic. Anicteric sclerae and pale conjunctivae. Mucous membranes dry. Neck: Supple. No JVD noted. No carotid bruits. No lymphadenopathy. No thyromegaly. Cardiovascular Examination: S1 and S2 heard. No murmurs, gallops, or rubs. Regular rate and rhythm. Respiratory Examination: There are still breath sounds that are decreased globally, some coarse breath sounds in both bases, mostly on the left side. No wheezing or crackles noted. Patient is not using any accessory muscles or having work of breathing. Abdomen: Soft. A little bit distended. No organomegaly noted. No tenderness to palpation noted. Extremities: There is 2+ pitting edema in both lower extremities, unchanged from previous days. There is some redness at the level of the shins. Neurological Examination: Patient is more awake today. Moves 4 extremities spontaneously. Laboratory Data: White cell count 11.53, hemoglobin 12.7, hematocrit 39.1, platelets 210,000. ABG shows pH of 7.44, with pCO2 of 51, PO2 43. BMP is unremarkable except mild hypernatremia at 146 and potassium 3.4. ASSESSMENT AND PLAN: 1. Acute on chronic hypoxic, hypercapnic respiratory failure. Clinically, the patient is doing good with less pCO2. He is still having high oxygen needs. to keep this patient here in the intensive care unit. Pulmonary is following this patient. 2. Sinus bradycardia. The heart rate has been in the range of 70s and 80s all the time. 3. Hypertension. Blood pressure is much better controlled. We have added hydralazine 3 times per day and amlodipine 5 mg by mouth twice a day. We will continue checking vitals every 6 hours. 4. Hypernatremia. Sodium is a little bit high. We will check BMP tomorrow. 5. Benign prostatic hypertrophy. Aware. We will continue home medications. 6. History of posttraumatic stress disorder. Patient is on valproic acid. We will continue with the same management. 7. Hyperglycemia. The glucose has been really high. Hemoglobin A1c was checked recently and was 5.7. We will continue watching this, checking blood sugars. 8. Disposition. Patient is going to stay here in the unit until his oxygen needs go down and then will be transferred to the floor, most likely tomorrow. cc: Josue Whaley MD
[2017-04-21] MEDS: 1/2 NS 1,000 ML IV SCH (13:33)
[2017-04-22] MEDS: HALDOL IV PRN ×2 (01:04→23:24)
[2017-04-22] MEDS: LOVENOX SUBQ SCH (01:04)
[2017-04-22] MEDS: ZOSYN 3.375 GM in NS 50 ML IV SCH ×4 (01:06→21:37)
[2017-04-22] MEDS: DEPACON 1,000 MG in NS 50 ML IV SCH (02:20)
[2017-04-22] MEDS: DUONEB (A & A) INH SCH ×6 (03:15→23:00)
[2017-04-22] MEDS: ATIVAN IV PRN ×2 (03:31→22:31)
[2017-04-22] MEDS: APRESOLINE PO SCH ×3 (04:11→21:37)
[2017-04-22 05:46] LABS: HEMATOCRIT 39.2 % (42.0-52.0); HEMOGLOBIN 12.5 g/dL (14.0-18.0); MCH 30.9 PG (27-31); MCHC 31.9 g/dL (33-37); MCV 96.8 FL (81-99); MPV 11.2 FL (7.4-10.4); RBC 4.05 XMIL (4.7-6.1)
[2017-04-22 06:09] LABS: AGAP 10; ALBUMIN 3.4 g/dL (3.5-5.0); ALKALINE PHOSPHATASE 63 U/L (32-122); BUN 24 mg/dL (8-22); CALCIUM 8.3 mg/dL (8.8-10.2); CHLORIDE 101 mmol/L (98-107); COSMO 289; GOT 42 U/L (10-34); GPT 153 U/L (10-44); POTASSIUM 3.2 mmol/L (3.5-5.1); SODIUM 144 mmol/L (136-145); TCO2 33 mmol/L (25-35); TOTAL BILIRUBIN 0.61 mg/dL (0.20-1.00); TOTAL PROTEIN 6.2 g/dL (6.3-8.3)
[2017-04-22] MEDS ORDERED: D50W SYRINGE ONE (06:18)
[2017-04-22] MEDS: HUMULIN R SUBQ SCH ×4 (07:46→21:41)
[2017-04-22] MEDS: NORVASC PO SCH ×2 (08:07→21:37)
[2017-04-22] MEDS: LASIX IV SCH (08:07)
[2017-04-22] MEDS: PROTONIX IV SCH (08:07)
[2017-04-22] MEDS: SOLU-MEDROL IV SCH (08:07)
[2017-04-22] MEDS: LANTUS SUBQ SCH (08:27)
[2017-04-22] MEDS: MIRALAX PO SCH (09:24)
[2017-04-22] MEDS: 1/2 NS 1,000 ML IV SCH (10:30)
[2017-04-22] MEDS ORDERED: POTASSIUM CHLORIDE 40 MEQ/SWI 40 MEQ/100 ML IVPB IV ONE (10:40)
--- NOTE | 2017-04-22 11:50 | PROGRESS NOTE ---
DATE: 04/22/2017 SUBJECTIVE: The patient is definitely much better orientated in a good mood, doing jokes. Patient follows commands. OBJECTIVE: Vital Signs: Temperature 98.8 degrees, heart rate 79, respiratory rate 16, blood pressure 150/88. O2 saturation 95% on 5 L nasal cannula. General: This is a chronically ill- looking and frail, 66-year-old male, lying in bed, in no acute distress. HEENT: Head is normocephalic, atraumatic. Anicteric sclerae and pale conjunctivae. Neck: Supple. No JVD noted. No carotid bruits. No lymphadenopathy. No thyromegaly. Cardiovascular: S1, S2 heard. No murmurs, gallops, or rubs. Regular rate and rhythm. Respiratory: There is still coarse breath sounds in both bases. Patient no wheezing. The patient does not have any crackles noted. He is not using any accessory muscles or having work of breathing. Abdomen: Soft, a little bit distended. No organomegaly. Nontender to palpation. Extremities: With 2+ pitting edema in both lower extremities continued from previous days. Some redness at the level of the shins. Neurological: Patient is more alert today. Moves 4 extremities. LABORATORY DATA: White cell count 12.19, hemoglobin 12.5, hematocrit 39.2, platelets 198,000. Potassium 3.2. ASSESSMENT AND PLAN: 1. Acute on chronic hypoxic hypercapnic respiratory failure. Clinically patient is doing good. Mentation is also improving. We have not checked CO2 but I think we can skip ABG for today because clinically he continues to improve. At this time, I guess this patient can be transferred out of the unit today. Pulmonary is also following this patient. 2. Sinus bradycardia. That condition is resolved. 3. Hypertension, blood pressure last week. With modification that we have made to his current treatment, blood pressure is in the range of 158 and 130 sometimes so I guess he can continue with the same management. 4. Hypernatremia. That condition is completely resolved. 5. Benign prostatic hypertrophy. We will continue with home medications. 6. History of posttraumatic stress disorder. Patient is on valproic acid. We will plan to continue with the same medication. 7. Hyperlipidemia that is resolving. 8. Disposition: Patient is going to be transferred from the intensive care unit today. He has become very weak. Physical therapy is going to be called in because he was intubated approximately for 7 days and he has become very weak. He most likely need rehab facility at discharge, but now, he is medically stable. cc: Josue Whaley MD
[2017-04-23] MEDS: ZOSYN 3.375 GM in NS 50 ML IV SCH ×3 (02:33→14:24)
[2017-04-23] MEDS: DEPACON 1,000 MG in NS 50 ML IV SCH (02:33)
[2017-04-23] MEDS: LOVENOX SUBQ SCH (02:33)
[2017-04-23] MEDS: DUONEB (A & A) INH SCH ×6 (03:20→23:19)
[2017-04-23] MEDS: APRESOLINE PO SCH ×2 (04:49→12:43)
[2017-04-23] MEDS: 1/2 NS 1,000 ML IV SCH (04:51)
[2017-04-23 05:52] LABS: HEMOGLOBIN 11.2 g/dL (14.0-18.0)
[2017-04-23 06:19] LABS: AGAP 10; ALBUMIN 3.2 g/dL (3.5-5.0); ALKALINE PHOSPHATASE 57 U/L (32-122); BUN 18 mg/dL (8-22); CALCIUM 7.9 mg/dL (8.8-10.2); CHLORIDE 100 mmol/L (98-107); COSMO 278; GOT 30 U/L (10-34); GPT 113 U/L (10-44); SODIUM 138 mmol/L (136-145); TCO2 28 mmol/L (25-35); TOTAL BILIRUBIN 0.51 mg/dL (0.20-1.00); TOTAL PROTEIN 5.6 g/dL (6.3-8.3)
[2017-04-23] MEDS: HUMULIN R SUBQ SCH ×3 (07:39→16:04)
[2017-04-23 07:42] LABS: MCV 93.8 FL (81-99); RBC 3.73 XMIL (4.7-6.1)
[2017-04-23] MEDS: PROTONIX IV SCH (08:02)
[2017-04-23] MEDS: LASIX IV SCH (08:02)
[2017-04-23] MEDS: SOLU-MEDROL IV SCH (08:02)
[2017-04-23] MEDS: LANTUS SUBQ SCH (08:03)
[2017-04-23] MEDS: MIRALAX PO SCH (08:03)
[2017-04-23] MEDS: NORVASC PO SCH (08:03)
[2017-04-23] MEDS ORDERED: KLONOPIN PO PRN (09:00)
[2017-04-23] MEDS ORDERED: LASIX PO SCH ×2 (09:01)
[2017-04-23] MEDS: DEPAKOTE PO SCH (09:26)
[2017-04-23] MEDS: EFFEXOR XR PO SCH (09:57)
[2017-04-23] MEDS: WELLBUTRIN XL PO SCH (09:57)
[2017-04-23] MEDS: POTASSIUM CHLORIDE 60 MEQ in NS 500 ML IV SCH ×2 (09:57→17:00)
[2017-04-23] MEDS: COREG PO SCH (09:57)
[2017-04-23] MEDS: SPIRIVA INH SCH (11:05)
--- NOTE | 2017-04-23 12:55 | PROGRESS NOTE ---
DATE: 04/23/2017 SUBJECTIVE: According to nursing staff, the patient had a rough night last night. He became very restless. He was also combative, and he told that he was in [facility] and [place]. He was put back on restraints. Now, he is definitely much better, although a little bit slow, but he knows where he is and he recognizes his . OBJECTIVE: Vital Signs: Temperature 97.4, heart rate 105, respiratory 19, blood pressure 178/111. O2 saturation 97% on 5 L nasal cannula. General: This is a chronically ill-looking, frail, 66- year-old male, lying in bed in no acute distress. HEENT: Head is normocephalic and atraumatic. Anicteric sclerae and pale conjunctivae. Mucous membranes dry. Neck supple. No JVD noted. No carotid bruits. No lymphadenopathy. No thyromegaly. Cardiovascular: S1, S2 heard. No murmurs, gallops, or rubs. Regular rate and rhythm. Respiratory: There are coarse breath sounds still present in both bases unchanged with The patient does not have any wheezing or crackles. The patient is not using any accessory muscles or having work of breathing. Abdomen is soft, a little bit distended. No organomegaly. Nontender to palpation. Extremities: There is 2+ pitting edema in both lower extremities. That is the same in comparing with previous days and some redness at the level of the [place]. Neurologic: Patient is alert and oriented x3. Moves 4 extremities. LABORATORY DATA: Reviewed. ASSESSMENT AND PLAN: 1. [id number] hypoxic and hypercapnic respiratory failure. Patient is doing good. The oxygen needs are still the same. We are going to check ABG tomorrow. Pulmonary following this patient. 2. Sinus bradycardia, resolved. 3. Recurrent delirium. The patient has been having a rough night yesterday and the day before. I think this patient needs to be restarted on all his home medications. He is going to start taking those medications today. 4. Hypertension. The blood pressure has been a little bit higher, and I guess it is also because he was not able to take his own medications. In this case, he was on amlodipine and hydralazine. Also, carvedilol 12.5 will be added to his current treatment. We will see how this patient does. 5. Hyponatremia, resolved. 6. History of posttraumatic stress disorder. Patient will be restarted on home medications. DISPOSITION: The patient is going to be transferred to a regular floor. Physical therapy will be working with him. We most likely need to send him to a rehab facility. cc: Josue Whaley MD
[2017-04-23] MEDS: TYLENOL PO PRN (15:59)
[2017-04-23] MEDS: NEURONTIN PO SCH (18:55)
[2017-04-24] MEDS: ZOSYN 3.375 GM in NS 50 ML IV SCH ×4 (01:30→15:00)
[2017-04-24] MEDS: LOVENOX SUBQ SCH (01:31)
[2017-04-24] MEDS: DEPAKOTE PO SCH (01:32)
[2017-04-24] MEDS: COREG PO SCH ×2 (01:34→10:10)
[2017-04-24] MEDS: REMERON PO SCH (01:35)
[2017-04-24] MEDS: NEURONTIN PO SCH ×3 (01:36→15:30)
[2017-04-24] MEDS: NORVASC PO SCH ×2 (01:36→10:10)
[2017-04-24] MEDS: APRESOLINE PO SCH ×3 (01:37→15:30)
[2017-04-24] MEDS: DESYREL PO SCH (01:40)
[2017-04-24] MEDS: LASIX PO SCH ×2 (02:05→10:10)
[2017-04-24] MEDS: DUONEB (A & A) INH SCH ×6 (04:19→23:10)
[2017-04-24] MEDS: HUMULIN R SUBQ SCH (06:11)
[2017-04-24 07:34] LABS: HEMATOCRIT 36.8 % (42.0-52.0); HEMOGLOBIN 11.6 g/dL (14.0-18.0); MCH 30.2 PG (27-31); MCHC 31.5 g/dL (33-37); MCV 95.8 FL (81-99); MPV 10.9 FL (7.4-10.4); RBC 3.84 XMIL (4.7-6.1)
[2017-04-24] MEDS: SPIRIVA INH SCH (07:34)
[2017-04-24 07:50] LABS: AGAP 11; ALBUMIN 3.5 g/dL (3.5-5.0); ALKALINE PHOSPHATASE 63 U/L (32-122); BUN 19 mg/dL (8-22); CALCIUM 8.5 mg/dL (8.8-10.2); CHLORIDE 102 mmol/L (98-107); COSMO 284; GOT 26 U/L (10-34); GPT 100 U/L (10-44); POTASSIUM 3.5 mmol/L (3.5-5.1); SODIUM 141 mmol/L (136-145); TCO2 28 mmol/L (25-35); TOTAL BILIRUBIN 0.57 mg/dL (0.20-1.00); TOTAL PROTEIN 6.2 g/dL (6.3-8.3)
[2017-04-24] MEDS: 1/2 NS 1,000 ML IV SCH (10:01)
[2017-04-24] MEDS: MIRALAX PO SCH (10:08)
[2017-04-24] MEDS: EFFEXOR XR PO SCH (10:09)
[2017-04-24] MEDS: SOLU-MEDROL IV SCH (10:09)
[2017-04-24] MEDS: PROTONIX IV SCH (10:09)
[2017-04-24] MEDS: SODIUM CHLORIDE 0.9% INJ SCH (10:09)
[2017-04-24] MEDS: WELLBUTRIN XL PO SCH (10:09)
[2017-04-24] MEDS: LANTUS SUBQ SCH (10:20)
--- NOTE | 2017-04-24 15:32 | PROGRESS NOTE ---
DATE: 04/24/2017 SUBJECTIVE: Patient sleep very well overnight. As per who is at bedside he was fine and no episodes of disorientation or combativeness. OBJECTIVE: Vital Signs: Temperature 98.0 degrees, heart rate 83, respiratory 18, blood pressure 115/67, O2 saturation 95% 3 L nasal cannula. General Examination: This is a chronically ill- looking and frail 66-year-old male lying in bed in no acute distress. HEENT: Head is normocephalic, atraumatic. Neck: Supple. No JVD noted. No carotid bruits. No lymphadenopathy. Cardiovascular: S1, S2 heard. No murmurs, gallops, or rubs. Regular rate and rhythm. Respiratory: There is some coarse breath sounds still present in both pulmonary sinha. Patient not using any accessory muscles or having work of breathing. Patient using 3 L of oxygen by nasal cannula. Abdomen: Soft, nontender, nondistended. No organomegaly. Nontender to palpation. Extremities: 2+ pitting edema in both lower extremities a little bit better in comparing with yesterday. Neurological: Patient alert and oriented x3. Moves 4 extremities. LABORATORY DATA: Reviewed. ASSESSMENT AND PLAN: 1. Acute on chronic hypoxic and hypercapnic respiratory failure. Patient is doing much better. His oxygen needs are now back to his baseline. Patient used oxygen at home at 3 L/minute. 2. Bradycardia resolved. 3. Recurrent delirium. I think this patient was having delirium because he was not receiving his home medications. All those has been restarted yesterday and since then patient is sleeping very well, not getting any agitated. Will continue with same management. 4. Hypertension. The blood pressure has been much better controlled in the range of 110 and 150. Will continue with the same management. 5. Chronic obstructive pulmonary disease. Will continue with the same management with nebulizers and oxygen. 6. Benign prostatic hypertrophy stable. cc: Josue Whaley MD
[2017-04-25] MEDS: ZOSYN 3.375 GM in NS 50 ML IV SCH ×5 (00:11→21:00)
[2017-04-25] MEDS: LASIX PO SCH ×3 (00:12→21:02)
[2017-04-25] MEDS: REMERON PO SCH ×2 (00:13→21:02)
[2017-04-25] MEDS: APRESOLINE PO SCH ×4 (00:13→21:03)
[2017-04-25] MEDS: COREG PO SCH ×3 (00:14→21:01)
[2017-04-25] MEDS: NORVASC PO SCH ×3 (00:14→21:01)
[2017-04-25] MEDS: DESYREL PO SCH ×2 (00:14→21:01)
[2017-04-25] MEDS: DEPAKOTE PO SCH ×2 (00:15→21:02)
[2017-04-25] MEDS: NEURONTIN PO SCH ×4 (00:15→21:01)
[2017-04-25] MEDS: LOVENOX SUBQ SCH ×2 (02:57→03:06)
[2017-04-25] MEDS: DUONEB (A & A) INH SCH ×6 (03:29→23:36)
[2017-04-25] MEDS: ATIVAN IV PRN (04:57)
[2017-04-25] MEDS: 1/2 NS 1,000 ML IV SCH ×2 (05:03→18:49)
[2017-04-25] MEDS: SPIRIVA INH SCH (07:25)
[2017-04-25 11:08] LABS: HEMATOCRIT 37.4 % (42.0-52.0); MCH 30.9 PG (27-31); MCHC 32.1 g/dL (33-37); MCV 96.4 FL (81-99); MPV 10.6 FL (7.4-10.4); RBC 3.88 XMIL (4.7-6.1)
[2017-04-25] MEDS: PROTONIX IV SCH (11:25)
[2017-04-25] MEDS: SOLU-MEDROL IV SCH (11:26)
[2017-04-25] MEDS: MIRALAX PO SCH (11:26)
[2017-04-25] MEDS: EFFEXOR XR PO SCH (11:27)
[2017-04-25] MEDS: WELLBUTRIN XL PO SCH (11:27)
[2017-04-25 11:46] LABS: AGAP 13; ALBUMIN 3.3 g/dL (3.5-5.0); ALKALINE PHOSPHATASE 61 U/L (32-122); BUN 21 mg/dL (8-22); CALCIUM 9.1 mg/dL (8.8-10.2); CHLORIDE 101 mmol/L (98-107); COSMO 294; GOT 27 U/L (10-34); GPT 90 U/L (10-44); POTASSIUM 3.1 mmol/L (3.5-5.1); SODIUM 143 mmol/L (136-145); TCO2 29 mmol/L (25-35); TOTAL BILIRUBIN 0.46 mg/dL (0.20-1.00); TOTAL PROTEIN 6.3 g/dL (6.3-8.3)
[2017-04-25] MEDS ORDERED: POTASSIUM CHLORIDE 60 MEQ in NS 500 ML IV ONE ×2 (14:50→15:25)
--- NOTE | 2017-04-25 16:25 | PROGRESS NOTE ---
DATE: 04/25/2017 SUBJECTIVE: Patient reports feeling fine. He reports he has not slept very well overnight. who is at bedside reports that he had episode of disorientation that lasted a few minutes. Overall he is doing good according to her. OBJECTIVE: Vital Signs: Temperature 98.4 degrees, heart rate 103, respiratory rate 20, blood pressure 120/65, O2 saturation 98% on 3 L nasal cannula. General: This is a chronically ill- looking and frail 66-year-old male, lying in bed, in no acute distress. HEENT: Head is normocephalic, atraumatic. Anicteric sclerae and pale conjunctivae. Mucous membranes moist. Neck: Supple. No JVD noted. No carotid bruits. No lymphadenopathy. No thyromegaly. Cardiovascular: S1, S2 heard. No murmurs, gallops, or rubs. Regular rate and rhythm. Respiratory: Some coarse breath sounds still present, but definitely much better in comparing with previous day. The patient is not using any accessory muscles or having work of breathing. Abdomen: Soft, nondistended, nontender. Bowel sounds present. No organomegaly. Extremities: 1+ pitting edema in both lower extremities. Neurological: Patient alert, oriented x3. Able to move 4 extremities. Cranial nerves 2-12 grossly normal. LABORATORY DATA: White cell count 11.77, hemoglobin 12, hematocrit 37.4, platelets 268,000. BMP is remarkable for potassium 3.1, glucose 213. ASSESSMENT AND PLAN: 1. Acute on chronic hypoxic and hypercapnic respiratory failure. The patient is doing much better. He is not feeling short of breath. Oxygen needs are back to his baseline, which is 3 L at home. We will continue with the same management. 2. Bradycardia, resolved. 3. Recurrent delirium, that condition is getting better during the last 2 days when we restarted home medications. We will continue with the same management. 4. Hypertension. Blood pressure is between 130s and sometimes 160s. We will continue with the same management. 5. Chronic obstructive pulmonary disease. We will continue with the same management with nebulizations and oxygen. 6. Benign prostatic hypertrophy stable. 7. Disuse myopathy. Patient has been in the hospital for approximately 15 days and 8 of them patient has been intubated and on Diprivan drip. The patient has become very weak. We have consulted a mental health social worker to send this patient to rehab facility. He is medically stable and he can leave any time we get a bed. cc: Josue Whaley MD
[2017-04-26] MEDS: LOVENOX SUBQ SCH (01:38)
[2017-04-26] MEDS: ZOSYN 3.375 GM in NS 50 ML IV SCH ×4 (03:05→20:53)
[2017-04-26] MEDS: DUONEB (A & A) INH SCH ×5 (03:59→19:53)
[2017-04-26] MEDS: APRESOLINE PO SCH ×3 (04:06→20:54)
[2017-04-26] MEDS: NEURONTIN PO SCH ×3 (04:06→20:54)
[2017-04-26 06:41] LABS: HEMATOCRIT 38.7 % (42.0-52.0); HEMOGLOBIN 12.1 g/dL (14.0-18.0); MCH 30.9 PG (27-31); MCHC 31.3 g/dL (33-37); MPV 10.5 FL (7.4-10.4); RBC 3.91 XMIL (4.7-6.1)
[2017-04-26 07:12] LABS: AGAP 12; ALBUMIN 3.8 g/dL (3.5-5.0); ALKALINE PHOSPHATASE 65 U/L (32-122); BUN 20 mg/dL (8-22); CALCIUM 8.8 mg/dL (8.8-10.2); CHLORIDE 106 mmol/L (98-107); COSMO 298; GOT 32 U/L (10-34); GPT 93 U/L (10-44); POTASSIUM 3.7 mmol/L (3.5-5.1); SODIUM 149 mmol/L (136-145); TCO2 31 mmol/L (25-35); TOTAL BILIRUBIN 0.59 mg/dL (0.20-1.00); TOTAL PROTEIN 6.9 g/dL (6.3-8.3)
[2017-04-26] MEDS: SPIRIVA INH SCH (07:18)
[2017-04-26] MEDS: WELLBUTRIN XL PO SCH (09:32)
[2017-04-26] MEDS: PROTONIX IV SCH (09:32)
[2017-04-26] MEDS: SODIUM CHLORIDE 0.9% INJ SCH (09:32)
[2017-04-26] MEDS: NORVASC PO SCH ×2 (09:33→20:54)
[2017-04-26] MEDS: EFFEXOR XR PO SCH (09:33)
[2017-04-26] MEDS: COREG PO SCH ×2 (09:33→20:54)
[2017-04-26] MEDS: PREDNISONE PO SCH ×2 (09:34→18:17)
[2017-04-26] MEDS: LASIX PO SCH (09:35)
[2017-04-26] MEDS: MIRALAX PO SCH (09:35)
--- NOTE | 2017-04-26 10:09 | PROGRESS NOTE ---
DATE: 04/26/2017 SUBJECTIVE: Patient reports feeling fine. He slept last night pretty well. There were acute issues overnight as per the nursing staff. OBJECTIVE: Vital Signs: Temperature 98 degrees, heart rate 70, respiratory rate 20, blood pressure 127/74, O2 saturation 98% on 3 L nasal cannula. General Examination: This is a chronically ill-looking and frail, 66-year-old, male, lying in bed, in no acute distress. HEENT: Head is normocephalic and atraumatic. Anicteric sclerae and pale conjunctivae. Mucous membranes moist. Neck: Supple. No JVD noted. No carotid bruits. No lymphadenopathy. No thyromegaly. Cardiovascular Examination: S1 and S2 heard. No murmurs, gallops, or rubs. Regular rate and rhythm. Respiratory Examination: Coarse breath sounds present in both bases but definitely better in comparing with previous days. Patient is not using any accessory muscles or having work of breathing. Abdomen: Soft, nontender to palpation. Bowel sounds present. No organomegaly. Extremities: There is 1+ pitting edema in both lower extremities , a little bit better. Neurological Examination: Patient is alert and oriented x3. Moves 4 extremities. Laboratory Data: White cell count 11.62, hemoglobin 12.1, hematocrit 38.7. BMP unremarkable except sodium 149. ASSESSMENT AND PLAN: 1. Acute on chronic hypoxic, hypercapnic respiratory failure. This condition is resolved. Patient is back to his usual oxygen needs. He clinically is not complaining of shortness of breath. We will continue with the same management. 2. Bradycardia, resolved. 3. Recurrent delirium. Apparently, from yesterday to today, there were no more episodes of restlessness. We will continue with home medications. 4. Hypertension. The blood pressure is definitely well controlled. We will continue with the same management. 5. Chronic obstructive pulmonary disease. We will continue with nebulizations as needed for shortness of breath. 6. Benign prostatic hypertrophy, stable. 7. Disuse myopathy. Patient has been in the hospital for 16 days and 8 of them , he was intubated so definitely he has become very weak. Physical therapy has been working with him and we are waiting for a bed in a rehab facility. cc: MD BABATUNDE Phillips
--- NOTE | 2017-04-26 10:25 | Diag Imaging Result Doc PS360 ---
EXAM: CHEST-2 VIEWS HISTORY: abnormal exam TECHNIQUE: Sitting upright COMPARISON: 04/21/2017 FINDINGS: No change in the position of the right-sided PICC line. The nasogastric tube has been removed since the prior exam. Heart is not enlarged. The vessels are not distended. There are no pleural effusions. Minimal atelectasis or scarring in the lower lungs. IMPRESSION: Overall interval improvement. Electronically signed by Dhaval Castro 04/26/2017 10:23 AM
[2017-04-26] MEDS: TYLENOL PO PRN (14:21)
[2017-04-26] MEDS: DEPAKOTE PO SCH (20:53)
[2017-04-26] MEDS: DESYREL PO SCH (20:54)
[2017-04-26] MEDS: REMERON PO SCH (20:54)
[2017-04-27] MEDS: ZOSYN 3.375 GM in NS 50 ML IV SCH ×3 (01:08→13:59)
[2017-04-27] MEDS: DUONEB (A & A) INH SCH ×3 (03:12→11:08)
[2017-04-27] MEDS: LOVENOX SUBQ SCH (04:03)
[2017-04-27] MEDS: NEURONTIN PO SCH ×2 (04:55→13:59)
[2017-04-27] MEDS: APRESOLINE PO SCH ×2 (04:55→13:58)
[2017-04-27 06:29] VITALS: BP 143/72
[2017-04-27 07:01] LABS: HEMATOCRIT 36.2 % (42.0-52.0); HEMOGLOBIN 11.3 g/dL (14.0-18.0); MCHC 31.2 g/dL (33-37); MCV 99.2 FL (81-99); MPV 10.7 FL (7.4-10.4); RBC 3.65 XMIL (4.7-6.1)
[2017-04-27 07:27] LABS: AGAP 9; ALBUMIN 3.5 g/dL (3.5-5.0); ALKALINE PHOSPHATASE 66 U/L (32-122); BUN 19 mg/dL (8-22); CALCIUM 8.4 mg/dL (8.8-10.2); CHLORIDE 102 mmol/L (98-107); COSMO 288; GOT 25 U/L (10-34); GPT 81 U/L (10-44); POTASSIUM 3.3 mmol/L (3.5-5.1); SODIUM 144 mmol/L (136-145); TCO2 33 mmol/L (25-35); TOTAL BILIRUBIN 0.46 mg/dL (0.20-1.00); TOTAL PROTEIN 6.2 g/dL (6.3-8.3)
[2017-04-27] MEDS: SPIRIVA INH SCH (07:46)
[2017-04-27] MEDS: LASIX PO SCH (09:37)
[2017-04-27] MEDS: NORVASC PO SCH (09:38)
[2017-04-27] MEDS: COREG PO SCH (09:38)
[2017-04-27] MEDS: SODIUM CHLORIDE 0.9% INJ SCH (09:38)
[2017-04-27] MEDS: PREDNISONE PO SCH (09:38)
[2017-04-27] MEDS: EFFEXOR XR PO SCH (09:38)
[2017-04-27] MEDS: PROTONIX IV SCH (09:38)
[2017-04-27] MEDS: WELLBUTRIN XL PO SCH (09:39)
[2017-04-27] MEDS: MIRALAX PO SCH (09:39)
--- NOTE | 2017-04-27 13:02 | DISCHARGE SUMMARY ---
ADMISSION DATE: 04/10/2017 DISCHARGE DATE: 04/27/2017 CONSULTATIONS: 1. Dr. Anjum Carcamo with Pulmonology. 2. Dr. Javy Avalos with Cardiology. OPERATIVE PROCEDURES: 1. Pulmonary arteriogram showed no pulmonary emboli, no pneumonia. 2. Echocardiogram showed an EF of 65%. DISCHARGE DIAGNOSES: 1. Acute on chronic hypoxic hypercapnic respiratory failure. The patient required intubation. He has been extubated and now on his regular home O2 at 3 L. 2. Bradycardia resolved. 3. Recurrent delirium stable. 4. Hypertension controlled. Continue home medications. 5. COPD. Continue with nebulizers and home O2. 6. BPH stable. 7. Diffuse myopathy in a patient who has been in the hospital 17 days and 8 of them he was intubated. He has worked with physical therapy. He is being discharged to rehab at [facility]. HOSPITAL COURSE: Mr. Cortes is a 66-year-old, male with a past medical history of diastolic heart failure, hypertension, COPD, nocturnal home O2, morbid obesity, benign BPH, chronic venous insufficiency. Two to 3 weeks prior to the patient's admission he traveled to [place]. While they were there he went to an urgent care in [place], [place]. He was evaluated and x-ray findings did not suggest any pulmonary edema which was the patient's primary concern. On arrival back home a week ago he started using his bronchodilators more frequently because he was still dyspneic and started using home O2 continuously for the last 3 days prior to his admission. He developed a sudden acute dyspnea at home. EMS was called. He was brought to the ED where he was emergently intubated. Laboratory data showed a white count 7, hemoglobin and hematocrit 13 and 45. Troponin of 0.01. D-dimer was 0.7. Blood gas was 7.32, pCO2 73, PO2 of 63, bicarb 31, on 50% FiO2. Respirations on a rate of 16, and tidal volume 600, and a PEEP of 8. Chest x-ray showed no increased vascular markings. He was admitted for acute respiratory failure secondary to COPD exacerbation. His pulmonary arteriogram was negative for PE or pneumonia. He was continued on bronchodilators as well as inhaled corticosteroid with a Pulmonary consult. He was started on Levophed and IV fluids, empiric antibiotics and a PPI. The patient spent 8 days in the ICU with mechanical ventilation. He did have some bradycardia for which Cardiology was consulted. The patient prior to being admitted had been on a beta matthew. He was not have any hemodynamic compromise related to his bradycardia of it was recommended to reduce his beta matthew, and continue to diurese. He was weaned off the ventilator. He was extubated to a mask at 40% initially weaned down to a nasal cannula. The patient was planning for transfer on 04/22/2017. The patient did have some bouts of confusion while he was in the ICU however his episodes subsided and he was moved out to the floor. The patient has had myopathy secondary to being in the hospital for 17 days and wound up being intubated so he has become very weak. Physical therapy has been working with the patient. They recommended rehab. [employer] was contacted and they have found rehab for the patient at [facility]. He is appropriate for discharge there today. Pulmonology's recommendation for the patient long-term he will benefit from compliance with CPAP and significant weight loss. VITAL SIGNS: At time of discharge, temperature 97.7 degrees, heart rate 96, respirations 18, blood pressure 143/72, O2 is 98% on 3 L nasal cannula. DISCHARGE DIET: Regular. DISCHARGE MEDICATIONS: As per Dr. Damian. FOLLOWUP: Mr. Cortes is being discharged to [facility]. Again, he would benefit from significant weight loss as well as using his nightly CPAP. He will continue on his regular home O2 as well as his bronchodilators. He can return to the ED for any worsening of symptoms. Discharge time greater than 30 minutes. Dictated by NATTY Vincent for Josue Whaley MD cc: Josue Whaley MD
== END 2017-04-27 14:03 ==
LOC: ED 19:58 → SUATTDRO 23:01 → ICU 23:01 → 3N 04-23 18:03
PROVIDERS: ATTEND Internal Medicine

== ENCOUNTER 2017-05-03 11:52 | Inpatient (IN) ==
[2017-05-03] MEDS ORDERED: DUONEB (A & A) INH ONE (12:39)
[2017-05-03 13:27] LABS: ALLEN TEST YES; BE 14.3 mmoll (-3.0-3.0); BLOOD TYPE ARTERIAL; DRAW SITE R RADIAL; METHB 0.8 % (0.0-1.5); PO2(98.6) 66 mmHg (60-100); SAMPLE BLOOD; SAO2 95.7 % (95.0-100.0); THB 12.2 g/dL (11.5-17.4); pH(98.6) 7.46 (7.35-7.45)
[2017-05-03 13:28] LABS: MODALITY CANNULA
[2017-05-03 13:30] LABS: PCO2(98.6) 57 mmHg (35-45)
[2017-05-03 13:50] LABS: URINE CULTURE NEEDED? NO; URINE MICRO REVIEW NEEDED? NO; URINE SOURCE CLEAN CATCH
[2017-05-03 13:50] LABS: MANUAL DIFF NEEDED? NO
[2017-05-03 13:55] LABS: BASO% 0.5 % (0.0-0.8); EOS# 0.36 X1000 (0.0-0.7); HEMATOCRIT 33.1 % (42.0-52.0); HEMOGLOBIN 10.2 g/dL (14.0-18.0); IMM GRAN# 0.03 X1000 (0.0-0.04); IMM GRAN% 0.5 % (0.0-0.5); LYMPH% 24.9 % (20.5-51.1); MCH 30.4 PG (27-31); MCHC 30.8 g/dL (33-37); MCV 98.5 FL (81-99); MONO# 0.62 X1000 (0.11-0.59); MONO% 10.3 % (1.7-9.3); MPV 9.6 FL (7.4-10.4); NEUT% 57.8 % (42.2-75.2); PLT 322 X1000 (130-400); RBC 3.36 XMIL (4.7-6.1)
[2017-05-03 14:07] LABS: BILIRUBIN URINE NEGATIVE (NEGATIVE); BLOOD URINE NEGATIVE (NEGATIVE); COLOR YELLOW; GLUCOSE URINE NEGATIVE (NEGATIVE); LEUKOCYTES URINE NEGATIVE (NEGATIVE); NITRITE URINE NEGATIVE (NEGATIVE); PH URINE 7.5; PROTEIN URINE NEGATIVE (NEGATIVE); SP GRAVITY URINE 1.005; TURBIDITY URINE CLEAR (CLEAR); UROBILINOGEN URINE NORMAL (NORMAL)
[2017-05-03 14:11] LABS: UR EPITHELIAL CELLS <10 /HPF (<10); URINE BACTERIA NEGATIVE /HPF; URINE RBC <10 /HPF (<10); URINE WBC <10 /HPF (<10)
[2017-05-03 14:14] LABS: AGAP 11; ALBUMIN 3.2 g/dL (3.5-5.0); ALKALINE PHOSPHATASE 72 U/L (32-122); BUN 9 mg/dL (8-22); CALCIUM 8.6 mg/dL (8.8-10.2); CHLORIDE 97 mmol/L (98-107); COSMO 287; GOT 23 U/L (10-34); GPT 48 U/L (10-44); POTASSIUM 3.7 mmol/L (3.5-5.1); SODIUM 144 mmol/L (136-145); TCO2 36 mmol/L (25-35); TOTAL BILIRUBIN 0.24 mg/dL (0.20-1.00); TOTAL PROTEIN 6.4 g/dL (6.3-8.3)
[2017-05-03] MEDS ORDERED: LEVAQUIN 750 MG/D5W 750 MG/150 ML IVPB IV ONE (15:03)
[2017-05-03] MEDS ORDERED: ZOSYN 3.375 GM in NS 50 ML IV ONE (15:06)
[2017-05-03] MEDS ORDERED: TYLENOL PO PRN (15:52)
[2017-05-03] MEDS ORDERED: NORCO-10 PO PRN (15:52)
[2017-05-03] MEDS: DUONEB (A & A) INH SCH ×3 (16:43→22:35)
[2017-05-03] MEDS: MUCOMYST 20% INH SCH (19:24)
[2017-05-03] MEDS: PULMICORT INH SCH (19:25)
[2017-05-03] MEDS ORDERED: ROCEPHIN 1 GM in NS 50 ML IV SCH (19:30)
[2017-05-03] MEDS ORDERED: LASIX IV ONE (20:23)
[2017-05-03] MEDS: KLOR-CON PO SCH (22:12)
[2017-05-03] MEDS: NEURONTIN PO SCH (22:13)
[2017-05-03] MEDS: DEPAKOTE PO SCH (22:13)
[2017-05-03] MEDS: REMERON PO SCH (22:13)
[2017-05-03] MEDS: ZOSYN 3.375 GM in NS 50 ML IV SCH (22:14)
[2017-05-03] MEDS: COREG PO SCH (22:14)
[2017-05-03] MEDS: DESYREL PO SCH (22:14)
[2017-05-03] MEDS: SOLU-MEDROL IV SCH (22:42)
[2017-05-04] MEDS: DUONEB (A & A) INH SCH ×6 (03:23→23:43)
[2017-05-04] MEDS: ZOSYN 3.375 GM in NS 50 ML IV SCH ×4 (04:05→21:13)
[2017-05-04] MEDS: NEURONTIN PO SCH ×3 (04:05→21:12)
[2017-05-04 04:45] LABS: ALLEN TEST YES; BLOOD TYPE ARTERIAL; DRAW SITE R RADIAL; O2(CT) 13.9 mL/dL (15.0-23.0); PO2(98.6) 68 mmHg (60-100); SAMPLE BLOOD; SAO2 96.1 % (95.0-100.0); THB 10.6 g/dL (11.5-17.4); pH(98.6) 7.42 (7.35-7.45)
[2017-05-04 04:49] LABS: MODALITY CANNULA; PCO2(98.6) 61 mmHg (35-45)
[2017-05-04 05:47] LABS: BASO% 0.3 % (0.0-0.8); EOS# 0.02 X1000 (0.0-0.7); EOS% 0.3 % (0.0-10.0); HEMATOCRIT 33.5 % (42.0-52.0); HEMOGLOBIN 10.5 g/dL (14.0-18.0); IMM GRAN# 0.04 X1000 (0.0-0.04); IMM GRAN% 0.5 % (0.0-0.5); LYMPH# 0.91 X1000 (1.2-3.4); LYMPH% 11.4 % (20.5-51.1); MANUAL DIFF NEEDED? YES; MCH 30.3 PG (27-31); MCHC 31.3 g/dL (33-37); MCV 96.8 FL (81-99); MONO# 0.12 X1000 (0.11-0.59); MONO% 1.5 % (1.7-9.3); MPV 9.6 FL (7.4-10.4); PLT 343 X1000 (130-400); RBC 3.46 XMIL (4.7-6.1)
[2017-05-04 06:12] LABS: BANDS 10 % (0-1); LYMPHS 12 % (21-51); MONO 4 % (1-9)
[2017-05-04 06:14] LABS: AGAP 14; ALBUMIN 3.2 g/dL (3.5-5.0); ALKALINE PHOSPHATASE 69 U/L (32-122); BUN 11 mg/dL (8-22); CALCIUM 8.5 mg/dL (8.8-10.2); CHLORIDE 94 mmol/L (98-107); COSMO 288; GOT 17 U/L (10-34); GPT 42 U/L (10-44); POTASSIUM 4.1 mmol/L (3.5-5.1); SODIUM 143 mmol/L (136-145); TCO2 35 mmol/L (25-35); TOTAL BILIRUBIN 0.29 mg/dL (0.20-1.00); TOTAL PROTEIN 6.6 g/dL (6.3-8.3)
[2017-05-04] MEDS ORDERED: VANCOMYCIN IV PER PHARMACY MISC SCH (07:30)
[2017-05-04] MEDS: PULMICORT INH SCH ×2 (07:50→19:15)
[2017-05-04] MEDS: MUCOMYST 20% INH SCH ×2 (07:50→19:15)
[2017-05-04] MEDS: LOVENOX SUBQ SCH (08:17)
[2017-05-04] MEDS: SOLU-MEDROL IV SCH ×2 (08:18→21:13)
[2017-05-04] MEDS: KLOR-CON PO SCH ×3 (08:18→16:34)
[2017-05-04] MEDS: WELLBUTRIN XL PO SCH (08:18)
[2017-05-04] MEDS: PRINIVIL PO SCH (08:18)
[2017-05-04] MEDS: EFFEXOR PO SCH (08:19)
[2017-05-04] MEDS: THERA M PLUS PO SCH (08:19)
[2017-05-04] MEDS: COREG PO SCH ×3 (08:19→16:34)
[2017-05-04] MEDS: VICON-C PO SCH (08:19)
[2017-05-04] MEDS: LASIX PO SCH (08:19)
[2017-05-04] MEDS: VANCOMYCIN 2 GM in NS 500 ML IV SCH (09:13)
[2017-05-04] MEDS ORDERED: PERFOROMIST NEB INH SCH (19:30)
[2017-05-04] MEDS: PERFOROMIST NEB INH SCH (20:45)
[2017-05-04] MEDS: DESYREL PO SCH (21:12)
[2017-05-04] MEDS: REMERON PO SCH (21:12)
[2017-05-04] MEDS: DEPAKOTE PO SCH (21:12)
[2017-05-05] MEDS: ZOSYN 3.375 GM in NS 50 ML IV SCH ×5 (02:43→23:22)
[2017-05-05] MEDS: VANCOMYCIN 2 GM in NS 500 ML IV SCH ×2 (03:17→23:33)
[2017-05-05] MEDS: DUONEB (A & A) INH SCH ×6 (03:38→23:10)
[2017-05-05] MEDS: NEURONTIN PO SCH ×3 (05:38→23:26)
[2017-05-05 06:42] LABS: BASO% 0.1 % (0.0-0.8); HEMATOCRIT 31.9 % (42.0-52.0); IMM GRAN# 0.08 X1000 (0.0-0.04); IMM GRAN% 0.7 % (0.0-0.5); LYMPH# 0.94 X1000 (1.2-3.4); LYMPH% 8.4 % (20.5-51.1); MANUAL DIFF NEEDED? YES; MCH 30.6 PG (27-31); MCHC 31.3 g/dL (33-37); MCV 97.6 FL (81-99); MONO# 0.38 X1000 (0.11-0.59); MONO% 3.4 % (1.7-9.3); MPV 9.7 FL (7.4-10.4); NEUT% 87.4 % (42.2-75.2); PLT 371 X1000 (130-400); RBC 3.27 XMIL (4.7-6.1)
[2017-05-05 06:56] LABS: AGAP 13; BUN 20 mg/dL (8-22); CALCIUM 8.4 mg/dL (8.8-10.2); CHLORIDE 98 mmol/L (98-107); COSMO 296; POTASSIUM 4.5 mmol/L (3.5-5.1); SODIUM 141 mmol/L (136-145); TCO2 30 mmol/L (25-35)
[2017-05-05 07:17] LABS: LYMPHS 8 % (21-51); MONO 4 % (1-9)
[2017-05-05] MEDS: PULMICORT INH SCH ×2 (07:57→19:19)
[2017-05-05] MEDS: MUCOMYST 20% INH SCH ×2 (07:57→19:18)
[2017-05-05] MEDS: PERFOROMIST NEB INH SCH ×2 (07:58→19:32)
[2017-05-05 08:47] LABS: HEMOGLOBIN A1C 6.1 % (4.8-6.0)
[2017-05-05] MEDS: VICON-C PO SCH (08:52)
[2017-05-05] MEDS: THERA M PLUS PO SCH (08:52)
[2017-05-05] MEDS: EFFEXOR PO SCH (08:53)
[2017-05-05] MEDS: WELLBUTRIN XL PO SCH (08:53)
[2017-05-05] MEDS: KLOR-CON PO SCH ×4 (08:53→16:36)
[2017-05-05] MEDS: LASIX PO SCH (08:53)
[2017-05-05] MEDS: LOVENOX SUBQ SCH (08:54)
[2017-05-05] MEDS: SOLU-MEDROL IV SCH ×2 (08:54→23:25)
[2017-05-05] MEDS: PRINIVIL PO SCH (08:56)
[2017-05-05] MEDS: COREG PO SCH ×5 (08:56→23:26)
[2017-05-05] MEDS ORDERED: LANTUS SUBQ SCH (21:00)
[2017-05-05] MEDS: DESYREL PO SCH (23:25)
[2017-05-05] MEDS: DEPAKOTE PO SCH (23:25)
[2017-05-05] MEDS: REMERON PO SCH (23:26)
[2017-05-05] MEDS: HUMULIN R SUBQ SCH (23:30)
[2017-05-05] MEDS ORDERED: INSULIN PEN NEEDLES ONE (23:38)
[2017-05-06] MEDS: LEVEMIR SUBQ SCH ×3 (01:12→20:30)
[2017-05-06] MEDS: DUONEB (A & A) INH SCH ×6 (03:27→23:10)
[2017-05-06 05:15] LABS: MANUAL DIFF NEEDED? NO
[2017-05-06 05:22] LABS: BASO% 0.1 % (0.0-0.8); HEMATOCRIT 31.8 % (42.0-52.0); HEMOGLOBIN 9.9 g/dL (14.0-18.0); IMM GRAN# 0.11 X1000 (0.0-0.04); IMM GRAN% 1.1 % (0.0-0.5); LYMPH# 0.98 X1000 (1.2-3.4); LYMPH% 9.7 % (20.5-51.1); MCH 30.5 PG (27-31); MCHC 31.1 g/dL (33-37); MCV 97.8 FL (81-99); MONO# 0.51 X1000 (0.11-0.59); MONO% 5.1 % (1.7-9.3); MPV 9.5 FL (7.4-10.4); PLT 406 X1000 (130-400); RBC 3.25 XMIL (4.7-6.1)
[2017-05-06 05:42] LABS: AGAP 11; BUN 22 mg/dL (8-22); CALCIUM 8.7 mg/dL (8.8-10.2); CHLORIDE 102 mmol/L (98-107); COSMO 299; POTASSIUM 4.4 mmol/L (3.5-5.1); SODIUM 144 mmol/L (136-145); TCO2 31 mmol/L (25-35)
[2017-05-06] MEDS: NEURONTIN PO SCH ×3 (05:48→20:29)
[2017-05-06] MEDS: ZOSYN 3.375 GM in NS 50 ML IV SCH ×4 (05:48→17:23)
[2017-05-06] MEDS: HUMULIN R SUBQ SCH ×4 (06:02→20:29)
[2017-05-06] MEDS: PULMICORT INH SCH ×2 (08:01→19:10)
[2017-05-06] MEDS: MUCOMYST 20% INH SCH ×2 (08:01→19:10)
[2017-05-06] MEDS: PERFOROMIST NEB INH SCH ×2 (08:02→19:10)
[2017-05-06] MEDS: LOVENOX SUBQ SCH (08:32)
[2017-05-06] MEDS: THERA M PLUS PO SCH (08:33)
[2017-05-06] MEDS: COREG PO SCH ×3 (08:33→17:23)
[2017-05-06] MEDS: EFFEXOR PO SCH (08:33)
[2017-05-06] MEDS: PRINIVIL PO SCH (08:33)
[2017-05-06] MEDS: KLOR-CON PO SCH ×3 (08:33→17:23)
[2017-05-06] MEDS: LASIX PO SCH (08:33)
[2017-05-06] MEDS: VICON-C PO SCH (08:33)
[2017-05-06] MEDS: SOLU-MEDROL IV SCH ×2 (08:34→20:30)
[2017-05-06] MEDS: WELLBUTRIN XL PO SCH (08:34)
[2017-05-06] MEDS: VANCOMYCIN 2 GM in NS 500 ML IV SCH (17:58)
[2017-05-06] MEDS: DEPAKOTE PO SCH (20:29)
[2017-05-06] MEDS: DESYREL PO SCH (20:29)
[2017-05-06] MEDS: REMERON PO SCH (20:29)
[2017-05-07] MEDS: ZOSYN 3.375 GM in NS 50 ML IV SCH ×2 (00:03→06:01)
[2017-05-07] MEDS: DUONEB (A & A) INH SCH ×6 (04:53→22:40)
[2017-05-07] MEDS: HUMULIN R SUBQ SCH ×4 (06:02→21:40)
[2017-05-07] MEDS: NEURONTIN PO SCH ×3 (06:02→21:42)
[2017-05-07] MEDS: PULMICORT INH SCH ×2 (08:01→19:00)
[2017-05-07] MEDS: MUCOMYST 20% INH SCH ×2 (08:01→19:00)
[2017-05-07] MEDS: PERFOROMIST NEB INH SCH ×2 (08:01→19:00)
[2017-05-07] MEDS: SOLU-MEDROL IV SCH (09:35)
[2017-05-07] MEDS: LOVENOX SUBQ SCH (09:36)
[2017-05-07] MEDS: WELLBUTRIN XL PO SCH (09:36)
[2017-05-07] MEDS: VICON-C PO SCH (09:36)
[2017-05-07] MEDS: LASIX PO SCH (09:36)
[2017-05-07] MEDS: LEVEMIR SUBQ SCH ×2 (09:36→21:40)
[2017-05-07] MEDS: EFFEXOR PO SCH (09:36)
[2017-05-07] MEDS: KLOR-CON PO SCH ×3 (09:36→17:27)
[2017-05-07] MEDS: PRINIVIL PO SCH (09:36)
[2017-05-07] MEDS: THERA M PLUS PO SCH (09:36)
[2017-05-07] MEDS: COREG PO SCH ×3 (09:36→17:27)
[2017-05-07] MEDS: VANCOMYCIN 2 GM in NS 500 ML IV SCH (11:10)
[2017-05-07 11:33] LABS: AGAP 8; BUN 19 mg/dL (8-22); CALCIUM 9.3 mg/dL (8.8-10.2); CHLORIDE 98 mmol/L (98-107); COSMO 290; POTASSIUM 4.2 mmol/L (3.5-5.1); SODIUM 140 mmol/L (136-145); TCO2 34 mmol/L (25-35)
[2017-05-07] MEDS: AUGMENTIN PO SCH (21:39)
[2017-05-07] MEDS: PREDNISONE PO SCH (21:39)
[2017-05-07] MEDS: DEPAKOTE PO SCH (21:39)
[2017-05-07] MEDS: DESYREL PO SCH (21:39)
[2017-05-07] MEDS: REMERON PO SCH (21:42)
[2017-05-08] MEDS: DUONEB (A & A) INH SCH ×6 (03:30→23:20)
[2017-05-08 04:48] LABS: ALLEN TEST YES; BLOOD TYPE ARTERIAL; DRAW SITE R RADIAL; METHB 0.8 % (0.0-1.5); O2(CT) 13.4 mL/dL (15.0-23.0); PO2(98.6) 102 mmHg (60-100); SAMPLE BLOOD; SAO2 99.7 % (95.0-100.0); SRATE 12 BPM; THB 9.7 g/dL (11.5-17.4); pH(98.6) 7.37 (7.35-7.45)
[2017-05-08 04:50] LABS: MODALITY BI PAP; PCO2(98.6) 60 mmHg (35-45)
[2017-05-08] MEDS: NEURONTIN PO SCH ×3 (06:06→21:42)
[2017-05-08] MEDS: HUMULIN R SUBQ SCH ×4 (06:07→21:43)
[2017-05-08] MEDS: MUCOMYST 20% INH SCH ×2 (08:02→19:24)
[2017-05-08] MEDS: PULMICORT INH SCH ×2 (08:03→19:24)
[2017-05-08] MEDS: PERFOROMIST NEB INH SCH ×2 (08:03→19:24)
[2017-05-08] MEDS: AUGMENTIN PO SCH ×2 (09:20→21:42)
[2017-05-08] MEDS: PRINIVIL PO SCH (09:20)
[2017-05-08] MEDS: EFFEXOR PO SCH (09:20)
[2017-05-08] MEDS: THERA M PLUS PO SCH (09:20)
[2017-05-08] MEDS: WELLBUTRIN XL PO SCH (09:20)
[2017-05-08] MEDS: VICON-C PO SCH (09:20)
[2017-05-08] MEDS: LASIX PO SCH (09:20)
[2017-05-08] MEDS: COREG PO SCH ×3 (09:21→17:50)
[2017-05-08] MEDS: LEVEMIR SUBQ SCH ×2 (09:21→21:42)
[2017-05-08] MEDS: LOVENOX SUBQ SCH (09:21)
[2017-05-08] MEDS: KLOR-CON PO SCH ×3 (09:21→17:51)
[2017-05-08] MEDS: PREDNISONE PO SCH ×3 (09:27→21:27)
[2017-05-08] MEDS: DEPAKOTE PO SCH (21:42)
[2017-05-08] MEDS: REMERON PO SCH (21:42)
[2017-05-08] MEDS: DESYREL PO SCH (21:42)
[2017-05-09] MEDS: DUONEB (A & A) INH SCH ×6 (03:23→23:11)
[2017-05-09] MEDS: HUMULIN R SUBQ SCH ×4 (06:49→21:56)
[2017-05-09] MEDS: NEURONTIN PO SCH ×3 (06:49→21:38)
[2017-05-09] MEDS: PERFOROMIST NEB INH SCH ×2 (08:41→19:33)
[2017-05-09] MEDS: MUCOMYST 20% INH SCH ×2 (08:41→19:34)
[2017-05-09] MEDS: PULMICORT INH SCH ×2 (11:14→19:33)
[2017-05-09] MEDS: COREG PO SCH ×3 (11:21→21:39)
[2017-05-09] MEDS: WELLBUTRIN XL PO SCH (11:21)
[2017-05-09] MEDS: AUGMENTIN PO SCH (11:21)
[2017-05-09] MEDS: LASIX PO SCH (11:21)
[2017-05-09] MEDS: VICON-C PO SCH (11:21)
[2017-05-09] MEDS: KLOR-CON PO SCH ×3 (11:21→21:39)
[2017-05-09] MEDS: THERA M PLUS PO SCH (11:22)
[2017-05-09] MEDS: PREDNISONE PO SCH ×2 (11:22→21:39)
[2017-05-09] MEDS: LOVENOX SUBQ SCH (11:22)
[2017-05-09] MEDS: PRINIVIL PO SCH (11:22)
[2017-05-09] MEDS: EFFEXOR PO SCH (11:22)
[2017-05-09] MEDS: LEVEMIR SUBQ SCH ×2 (11:22→21:39)
[2017-05-09] MEDS ORDERED: VANCOMYCIN IV PER PHARMACY MISC SCH (13:15)
[2017-05-09] MEDS: BACTROBAN OINTMENT TOP SCH ×2 (13:35→21:55)
[2017-05-09] MEDS ORDERED: VANCOMYCIN 2 GM in NS 500 ML IV SCH (15:00)
[2017-05-09] MEDS: DOXYCYCLINE PO SCH ×2 (16:01→21:38)
[2017-05-09] MEDS: KEFLEX PO SCH (21:38)
[2017-05-09] MEDS: DEPAKOTE PO SCH (21:38)
[2017-05-09] MEDS: REMERON PO SCH (21:39)
[2017-05-09] MEDS: DESYREL PO SCH (21:39)
[2017-05-10] MEDS: DUONEB (A & A) INH SCH ×6 (03:31→22:48)
[2017-05-10] MEDS: NEURONTIN PO SCH ×3 (05:52→20:47)
[2017-05-10] MEDS: VICON-C PO SCH ×2 (05:52→06:46)
[2017-05-10] MEDS: THERA M PLUS PO SCH ×2 (05:52→06:46)
[2017-05-10] MEDS ORDERED: INSULIN PEN NEEDLES ONE (06:24)
[2017-05-10] MEDS: HUMULIN R SUBQ SCH ×4 (06:32→20:47)
[2017-05-10] MEDS: PULMICORT INH SCH ×2 (07:26→19:34)
[2017-05-10] MEDS: PERFOROMIST NEB INH SCH ×2 (07:26→19:35)
[2017-05-10] MEDS: MUCOMYST 20% INH SCH ×2 (07:26→19:35)
[2017-05-10 08:51] LABS: MANUAL DIFF NEEDED? NO
[2017-05-10] MEDS: LOVENOX SUBQ SCH (08:57)
[2017-05-10] MEDS: COREG PO SCH ×3 (08:57→18:10)
[2017-05-10] MEDS: DOXYCYCLINE PO SCH ×2 (08:57→20:47)
[2017-05-10] MEDS: WELLBUTRIN XL PO SCH (08:57)
[2017-05-10] MEDS: LASIX PO SCH (08:57)
[2017-05-10] MEDS: PREDNISONE PO SCH ×2 (08:58→20:46)
[2017-05-10] MEDS: KLOR-CON PO SCH ×3 (08:58→18:10)
[2017-05-10] MEDS: PRINIVIL PO SCH (09:00)
[2017-05-10] MEDS: EFFEXOR PO SCH (09:00)
[2017-05-10] MEDS: KEFLEX PO SCH ×2 (09:00→20:46)
[2017-05-10 09:01] LABS: BASO% 0.2 % (0.0-0.8); EOS# 0.34 X1000 (0.0-0.7); EOS% 3.5 % (0.0-10.0); HEMATOCRIT 35.9 % (42.0-52.0); HEMOGLOBIN 11.1 g/dL (14.0-18.0); IMM GRAN# 0.14 X1000 (0.0-0.04); IMM GRAN% 1.4 % (0.0-0.5); LYMPH# 2.34 X1000 (1.2-3.4); MCH 30.5 PG (27-31); MCHC 30.9 g/dL (33-37); MCV 98.6 FL (81-99); MONO# 0.54 X1000 (0.11-0.59); MONO% 5.5 % (1.7-9.3); MPV 9.5 FL (7.4-10.4); NEUT% 65.4 % (42.2-75.2); PLT 368 X1000 (130-400); RBC 3.64 XMIL (4.7-6.1)
[2017-05-10] MEDS: LEVEMIR SUBQ SCH ×2 (09:02→20:47)
[2017-05-10] MEDS: BACTROBAN OINTMENT TOP SCH ×3 (09:09→18:11)
[2017-05-10 09:20] LABS: AGAP 12; BUN 14 mg/dL (8-22); CALCIUM 8.7 mg/dL (8.8-10.2); CHLORIDE 99 mmol/L (98-107); COSMO 291; POTASSIUM 4.1 mmol/L (3.5-5.1); SODIUM 145 mmol/L (136-145); TCO2 34 mmol/L (25-35)
[2017-05-10] MEDS: DESYREL PO SCH (20:46)
[2017-05-10] MEDS: REMERON PO SCH (20:46)
[2017-05-10] MEDS: DEPAKOTE PO SCH (20:46)
[2017-05-11] MEDS: DUONEB (A & A) INH SCH ×3 (03:37→11:21)
[2017-05-11] MEDS: THERA M PLUS PO SCH ×2 (05:41→06:47)
[2017-05-11] MEDS: NEURONTIN PO SCH ×2 (05:41→12:36)
[2017-05-11] MEDS: VICON-C PO SCH ×2 (05:41→06:47)
[2017-05-11 06:10] LABS: MANUAL DIFF NEEDED? NO
[2017-05-11 06:18] LABS: BASO% 0.2 % (0.0-0.8); EOS# 0.41 X1000 (0.0-0.7); EOS% 4.2 % (0.0-10.0); HEMOGLOBIN 10.9 g/dL (14.0-18.0); IMM GRAN# 0.15 X1000 (0.0-0.04); IMM GRAN% 1.5 % (0.0-0.5); LYMPH# 2.03 X1000 (1.2-3.4); LYMPH% 20.9 % (20.5-51.1); MCH 29.9 PG (27-31); MCHC 30.3 g/dL (33-37); MCV 98.9 FL (81-99); MONO# 0.56 X1000 (0.11-0.59); MONO% 5.8 % (1.7-9.3); MPV 9.5 FL (7.4-10.4); NEUT% 67.4 % (42.2-75.2); PLT 375 X1000 (130-400); RBC 3.64 XMIL (4.7-6.1)
[2017-05-11 06:36] LABS: AGAP 12; BUN 18 mg/dL (8-22); CHLORIDE 99 mmol/L (98-107); COSMO 291; POTASSIUM 4.6 mmol/L (3.5-5.1); SODIUM 144 mmol/L (136-145); TCO2 33 mmol/L (25-35)
[2017-05-11] MEDS: HUMULIN R SUBQ SCH ×2 (06:47→11:05)
[2017-05-11] MEDS: PULMICORT INH SCH (07:33)
[2017-05-11] MEDS: LEVEMIR SUBQ SCH (08:05)
[2017-05-11] MEDS: LOVENOX SUBQ SCH (08:05)
[2017-05-11] MEDS: PRINIVIL PO SCH (08:06)
[2017-05-11] MEDS: EFFEXOR PO SCH (08:07)
[2017-05-11] MEDS: DOXYCYCLINE PO SCH (08:07)
[2017-05-11] MEDS: KEFLEX PO SCH (08:07)
[2017-05-11] MEDS: COREG PO SCH (08:07)
[2017-05-11] MEDS: WELLBUTRIN XL PO SCH (08:07)
[2017-05-11] MEDS: PREDNISONE PO SCH (08:07)
[2017-05-11] MEDS: LASIX PO SCH (08:07)
[2017-05-11] MEDS: KLOR-CON PO SCH (08:07)
[2017-05-11] MEDS: BACTROBAN OINTMENT TOP SCH (08:08)
[2017-05-11] MEDS: PERFOROMIST NEB INH SCH (11:22)
[2017-05-11 12:08] VITALS: BP 126/84
== END 2017-05-11 15:10 | disposition home health service (06) ==
LOC: ED 11:52 → 4N 15:27 → SUATTDRO 15:27
PROVIDERS: ATTEND Internal Medicine

== ENCOUNTER 2017-05-29 23:00 | Inpatient (IN) ==
[2017-05-29] MEDS ORDERED: DUONEB (A & A) INH ONE (23:24)
[2017-05-29] MEDS ORDERED: SOLU-MEDROL IV ONE (23:24)
[2017-05-29 23:26] LABS: ALLEN TEST YES; BE 16.6 mmoll (-3.0-3.0); BLOOD TYPE ARTERIAL; DRAW SITE R RADIAL; METHB 1.3 % (0.0-1.5); O2(CT) 12.7 mL/dL (15.0-23.0); SAMPLE BLOOD; SAO2 82.7 % (95.0-100.0); SRATE 4 BPM; THB 11.3 g/dL (11.5-17.4); pH(98.6) 7.43 (7.35-7.45)
[2017-05-29 23:27] LABS: MODALITY BI PAP
[2017-05-29 23:28] LABS: PCO2(98.6) 66 mmHg (35-45); PO2(98.6) 43 mmHg (60-100)
[2017-05-29] MEDS ORDERED: PULMICORT INH ONE (23:29)
[2017-05-29 23:31] LABS: MANUAL DIFF NEEDED? NO
[2017-05-29 23:41] LABS: BASO% 0.2 % (0.0-0.8); EOS# 0.11 X1000 (0.0-0.7); EOS% 2.2 % (0.0-10.0); HEMATOCRIT 36.3 % (42.0-52.0); HEMOGLOBIN 11.1 g/dL (14.0-18.0); IMM GRAN# 0.04 X1000 (0.0-0.04); IMM GRAN% 0.8 % (0.0-0.5); LYMPH# 1.21 X1000 (1.2-3.4); LYMPH% 24.6 % (20.5-51.1); MCH 30.5 PG (27-31); MCHC 30.6 g/dL (33-37); MCV 99.7 FL (81-99); MONO# 0.19 X1000 (0.11-0.59); MONO% 3.9 % (1.7-9.3); MPV 9.4 FL (7.4-10.4); NEUT% 68.3 % (42.2-75.2); PLT 284 X1000 (130-400); RBC 3.64 XMIL (4.7-6.1)
[2017-05-29] MEDS ORDERED: LASIX IV ONE (23:46)
[2017-05-29 23:49] LABS: AGAP 10; ALKALINE PHOSPHATASE 69 U/L (32-122); BUN 11 mg/dL (8-22); CALCIUM 8.7 mg/dL (8.8-10.2); CHLORIDE 95 mmol/L (98-107); CK PROFILE 16 U/L (24-204); COSMO 282; GOT 17 U/L (10-34); GPT 15 U/L (10-44); MAGNESIUM 2.1 mg/dL (1.5-2.7); POTASSIUM 4.5 mmol/L (3.5-5.1); SODIUM 141 mmol/L (136-145); TCO2 36 mmol/L (25-35); TOTAL BILIRUBIN 0.29 mg/dL (0.20-1.00); TOTAL PROTEIN 6.5 g/dL (6.3-8.3)
[2017-05-30 00:32] LABS: URINE CULTURE NEEDED? NO; URINE MICRO REVIEW NEEDED? NO; URINE SOURCE CLEAN CATCH
--- NOTE | 2017-05-30 00:33 | ED EKG INTERP ---
This chart was entered by Shyanne Workman Scribe, acting as scribe for Bobby Jaeger DO. EKG Interpretation - EKG Time of EKG reading by physician:: 23:16 EKG Read and Signed by:: Bobby Jaeger EKG Interpretation (*Must complete 3 of following elements*): Normal Rate: 92 Rhythm: sinus rhythm with premature supraventricular complexes [place]: normal QRS: normal ND Interval: normal ST Wave: normal Attestation - Physician/ CRESENCIO Attestation Patient care was provided by Advanced Practice Provider:: No The physician spent face to face time with patient:: Yes Advanced Practice Provider documentation review:: Supervising physician onsite and consulted in the evaluation and care of this patient. The physician did have a face to face encounter with the patient. This chart was documented by the indicated scribe, (Shyanne Workman Scribe) and accurately reflects the services I performed and decisions made by , Bobby Jaeger DO, as attested by the provider's signature.
[2017-05-30 00:34] LABS: BILIRUBIN URINE NEGATIVE (NEGATIVE); BLOOD URINE TRACE (NEGATIVE); COLOR YELLOW; GLUCOSE URINE NEGATIVE (NEGATIVE); LEUKOCYTES URINE NEGATIVE (NEGATIVE); NITRITE URINE NEGATIVE (NEGATIVE); PH URINE 6.5; PROTEIN URINE TRACE mg/dL (NEGATIVE); SP GRAVITY URINE 1.019; TURBIDITY URINE CLEAR (CLEAR); UROBILINOGEN URINE NORMAL (NORMAL)
[2017-05-30 00:36] LABS: UR EPITHELIAL CELLS <10 /HPF (<10); URINE BACTERIA NEGATIVE /HPF; URINE RBC 20-40 /HPF (<10); URINE WBC <10 /HPF (<10)
--- NOTE | 2017-05-30 00:37 | PROVIDER DOCUMENTATION ---
This chart was entered by Shyanne Workman Scribe, acting as scribe for Bobby Jaeger DO. HPI-Respiratory General - General Chief Complaint: Shortness of Breath Stated Complaint: sob Time Seen by Provider: 05/29/17 23:00 Source: patient, family, EMS Allergies/Adverse Reactions: Patient Allergies Allergy/AdvReac Type Severity Reaction Status Date / Time celecoxib [From Celebrex] Allergy Severe ANAPHYLAXIS Verified 05/29/17 23:28 Home Medications: Home Medication List Medication Instructions Recorded Confirmed Last Taken Type Bupropion HCl [Wellbutrin Xl] 300 mg PO DAILY 11/24/13 05/03/17 05/03/17 History Lisinopril 40 mg PO DAILY 11/24/13 05/03/17 05/03/17 History Potassium Chloride [Klor-Con 10] 10 meq PO TID 11/24/13 05/03/17 05/03/17 History Trazodone HCl 50 mg PO HS 11/24/13 05/03/17 05/03/17 History Mirtazapine [Remeron] 15 mg PO QHS 07/13/15 05/03/17 05/03/17 History Tiotropium [place] Inhaler 1 puff INH RTDAILY #1 inhaler 07/16/15 05/03/1705/03 Rx [Spiriva] Gabapentin [Neurontin] 300 mg PO Q8HR 02/06/16 05/03/17 05/03/17 History Mv-Mn/FA/Lycopene/Lut/Hb#178 [[place] 1 each PO DAILY 08/12/16 05/03/17 05/03/17 History Multi For Men Tablet] Vitamin B Complex [B Complex] 1 each PO DAILY 08/12/16 05/03/17 05/03/17 History Venlafaxine [Effexor] 75 mg PO DAILY 08/17/16 05/03/17 05/03/17 History Albuterol Sulfate Inhaler 1 puff INH Q4H PRN PRN 04/10/17 05/03/17 05/03/17 History [Ventolin Hfa] Carvedilol [Coreg] 12.5 mg PO TID 04/10/17 05/03/17 05/03/17 History Divalproex [Depakote] 1,000 mg PO HS #120 tablet 04/27/17 05/03/17 05/03/17 Rx Budesonide [Pulmicort] 0.5 mg INH RTBID #1 neb 05/11/17 Unknown Rx CephALEXIN [Keflex] 500 mg PO BID #10 capsule 05/11/17 Unknown Rx Doxycycline 100 mg PO BID #16 tablet 05/11/17 Unknown Rx Furosemide [Lasix] 60 mg PO DAILY #90 tablet 05/11/17 Unknown Rx Hydrocodone/Acetaminophen [[place] 1 tab PO Q6H PRN PRN #30 tablet 05/11/17 Unknown Rx 10-325 Tablet] Insulin Detemir [Levemir] 15 unit SUBQ BID #2 insuln.pen 05/11/17 Unknown Rx Mupirocin Ointment [Bactroban 0 gm TOP TID #1 tube 05/11/17 Unknown Rx Ointment] Prednisone 5 mg PO DAILY #15 tablet 05/11/17 Unknown Rx - History of Present Illness-Resp Nature of Presenting Problem: Patient is a 67 year old male who presents in the ED via EMS with complaints of dyspnea. Patient states he had a sudden onset of increased shortness of breath this evening, and states his oxygen saturation dropped into the 50's. He also states history of COPD and chronic respiratory failure, and states he wears home oxygen continuously. Quality of Pain: reports: none Severity in ED: reports: mild, moderate Onset/Duration: reports: abrupt, this evening Timing: reports: still present, changing over time, getting worse Context: denies: recent foreign travel, insect bite (possible tick), recent chemotherapy, multiple patients with similar complaints, recent URI, out of meds , sports/exercise, aspiration/choking, other Exposure: reports: unknown cause Cough Quality/Degree: reports: moderate Episode Frequency: chronic episodes Current Respiratory Medication Therapy: Initiated see nurses note, Initiated other (home oxygen; home nebulizer treatments) Modifying Factors: improves with: nothing Associated Symptoms: reports: shortness of breath, short of breath, other ( hypoxic) Similar Symptoms Previously?: Yes Recently seen or treated by another doctor?: No Review of Systems - Adult - REVIEW OF SYSTEMS - ADULT Constitutional: reports: no symptoms reported Eyes: reports: no symptoms reported Ears, Nose, Mouth & Throat: reports: no symptoms reported Cardiovascular: reports: no symptoms reported Respiratory: reports: see HPI, shortness of breath, other (hypoxia) Gastrointestinal: reports: no symptoms reported Genitourinary: reports: no symptoms reported Musculoskeletal: reports: no symptoms reported Integumentary: reports: no symptoms reported Neurological: reports: no symptoms reported Psychiatric: reports: no symptoms reported Endocrine: reports: no symptoms reported Hematologic/Lymphatic: reports: no symptoms reported Allergic/Immunologic: reports: no symptoms reported All Other Systems: Reviewed and Negative Past History - Adult - PAST MEDICAL HISTORY-ADULT Review of Records: reports: Old Records Reviewed, Nursing Assessment Review, Medications Reviewed Major Childhood Illnesses: reports: denies history Cardiovascular: reports: CHF, HTN, hyperlipidemia Respiratory: reports: denies history Gastrointestinal: reports: denies history Obstetrical/Gynecological: reports: denies history Genitourinary: reports: denies history Musculoskeletal: reports: arthritis Neurological: reports: denies history Psychiatric: reports: depression Endocrine/Immune: reports: denies history Other Conditions: reports: other cancer (melanoma) - PRIOR SURGERIES/PROCEDURES Surgical/Procedure History: reports: reviewed, not pertinent - PRIOR HOSPITALIZATIONS Prior Hospitalizations: reports: for other non-related - IMMUNIZATION STATUS Childhood Immunizations: See Nurse Assessment Flu Vaccine: See Nurse Assessment - FAMILY HISTORY Family History: reviewed, not pertinent - SOCIAL HISTORY Smoking: non-smoker, quit greater than 1 year Substance Use: none/never Alcohol Use Frequency: twice a week Living Situation: family Physical Exam-General - PHYSICAL EXAM-ADULT Initial Vital Signs Reviewed: Yes - CONSTITUTIONAL General Appearance: alert, no apparent distress - EYES Eyes: PERRL/EOMI, pink conjunctivae - HEAD, EARS, NOSE, MOUTH & THROAT HENMT: normocephalic/atraumatic, moist mucous membranes - NECK Neck: full range of motion, supple - RESPIRATORY Respiratory: chest non-tender, no accessory muscle use, respiratory distress, crackles (faint in left base), wheezing (bilaterally), other (monitor findings oxygen saturation of 70's on arrival; BiPAP improved to 88-90%) - CARDIOVASCULAR Cardiovascular: regular rate, rhythm, no edema, no gallop, no JVD, no murmur - GASTROINTESTINAL (ABDOMEN) Abdominal Exam: non tender, soft, no organomegaly, no pulsatile mass - LYMPHATIC Lymphatic: no adenopathy - MUSCULOSKELETAL Back Exam: normal inspection Extremity: normal range of motion, non-tender, no calf tenderness, normal capillary refill, pedal edema (bilateral pitting edema) - SKIN Integumentary: normal color, normal turgor, warm/dry - NEUROLOGIC Neurologic: grossly normal, no motor/sensory deficits - PSYCHIATRIC Psych/Mental Status: normal mood/affect, oriented x 3 Progress - PLAN OF CARE/RESULTS Progress/Plan/Lab Results: Vital Signs - 8 hr 05/29/17 23:07 05/29/17 23:25 Temperature 97.9 F Pulse Rate 88 126 H Respiratory Rate 23 22 Blood Pressure 168/86 O2 Sat by Pulse Oximetry 52 L 88 L Laboratory Results - last 24 hr 05/29/17 05/29/17 05/29/17 23:15 23:15 23:15 WBC 4.92 RBC 3.64 L Hgb 11.1 L Hct 36.3 L MCV 99.7 H MCH 30.5 MCHC 30.6 L RDW Std Deviation 17.4 H Plt Count 284 MPV 9.4 Immature Gran % (Auto) 0.8 H Neut % (Auto) 68.3 Lymph % (Auto) 24.6 [place] % (Auto) 3.9 Eos % (Auto) 2.2 Baso % (Auto) 0.2 Immature Gran # (Auto) 0.04 Neut # (Auto) 3.36 Lymph # (Auto) 1.21 [place] # (Auto) 0.19 Eos # (Auto) 0.11 Baso # (Auto) 0.01 D-Dimer 1.20 H Specimen Type Sample Site pH pCO2 pO2 HCO3 Base Excess Oxyhemoglobin ABG O2 Sat (Calculated) ABG O2 Saturation ABG Carboxyhemoglobin ABG Methemoglobin Link Test A-a O2 Difference Total Hemoglobin Lactate Blood Gas Modality Spontaneous Rate FiO2 % Inspiratory BiPAP Expiratory BiPAP Sodium 141 Potassium 4.5 Chloride 95 L Carbon Dioxide 36 H Anion Gap 10 BUN 11 Creatinine 1.1 Estimated GFR/1.73 m2 > 60 BUN/Creatinine Ratio 10 Glucose 129 H Calculated Osmolality 282 Calcium 8.7 L Phosphorus 4.2 Magnesium 2.1 Total Bilirubin 0.29 AST 17 ALT 15 Alkaline Phosphatase 69 Creatine Kinase 16 L Troponin T Ziz-W-Izuypluicnq Pept Total Protein 6.5 Albumin 3.0 L Globulin 3.5 Albumin/Globulin Ratio 0.9 Plasma Lactate Urine Source 05/29/17 05/29/17 05/29/17 23:15 23:15 23:15 WBC RBC Hgb Hct MCV MCH MCHC RDW Std Deviation Plt Count MPV Immature Gran % (Auto) Neut % (Auto) Lymph % (Auto) [place] % (Auto) Eos % (Auto) Baso % (Auto) Immature Gran # (Auto) Neut # (Auto) Lymph # (Auto) [place] # (Auto) Eos # (Auto) Baso # (Auto) D-Dimer Specimen Type Sample Site pH pCO2 pO2 HCO3 Base Excess Oxyhemoglobin ABG O2 Sat (Calculated) ABG O2 Saturation ABG Carboxyhemoglobin ABG Methemoglobin Link Test A-a O2 Difference Total Hemoglobin Lactate Blood Gas Modality Spontaneous Rate FiO2 % Inspiratory BiPAP Expiratory BiPAP Sodium Potassium Chloride Carbon Dioxide Anion Gap BUN Creatinine Estimated GFR/1.73 m2 BUN/Creatinine Ratio Glucose Calculated Osmolality Calcium Phosphorus Magnesium Total Bilirubin AST ALT Alkaline Phosphatase Creatine Kinase Troponin T < 0.010 [place]-D-Ditsptahfle Pept 148 Total Protein Albumin Globulin Albumin/Globulin Ratio Plasma Lactate 1.5 Urine Source 05/29/17 05/29/17 23:18 23:50 WBC RBC Hgb Hct MCV MCH MCHC RDW Std Deviation Plt Count MPV Immature Gran % (Auto) Neut % (Auto) Lymph % (Auto) [place] % (Auto) Eos % (Auto) Baso % (Auto) Immature Gran # (Auto) Neut # (Auto) Lymph # (Auto) [place] # (Auto) Eos # (Auto) Baso # (Auto) D-Dimer Specimen Type ARTERIAL Sample Site R RADIAL pH 7.43 pCO2 66 H* pO2 43 L* HCO3 37.5 H Base Excess 16.6 H Oxyhemoglobin 80.0 L* ABG O2 Sat (Calculated) 12.7 L ABG O2 Saturation 82.7 L ABG Carboxyhemoglobin 2.00 ABG Methemoglobin 1.3 Link Test YES A-a O2 Difference 588.0 Total Hemoglobin 11.3 L Lactate 1.50 Blood Gas Modality BI PAP Spontaneous Rate 4 FiO2 % 100.0 Inspiratory BiPAP 18.0 Expiratory BiPAP 10.0 Sodium Potassium Chloride Carbon Dioxide Anion Gap BUN Creatinine Estimated GFR/1.73 m2 BUN/Creatinine Ratio Glucose Calculated Osmolality Calcium Phosphorus Magnesium Total Bilirubin AST ALT Alkaline Phosphatase Creatine Kinase Troponin T Fhn-A-Qxfawkyfnju Pept Total Protein Albumin Globulin Albumin/Globulin Ratio Plasma Lactate Urine Source CLEAN CATCH Orders Category Date Time Status CHEST-1 VIEW [RAD] Stat Exams 05/29/17 23:18 Taken ABG [RESP] Routine Lab 05/29/17 23:18 Completed BLOOD CULTURE [BLDCUL] Stat Lab 05/30/17 00:27 Ordered CBC WITH DIFF [HEME] Stat Lab 05/29/17 23:15 Completed CK PROFILE [SP CHEM] Stat Lab 05/29/17 23:15 Completed COMPREHENSIVE METABOLIC PANEL [CHEM] Stat Lab 05/29/17 23:15 Completed D-DIMER [CHEM] Stat Lab 05/29/17 23:15 Completed LACTATE, PLASMA [CHEM] Stat Lab 05/29/17 23:15 Completed MAGNESIUM [CHEM] Stat Lab 05/29/17 23:15 Completed PHOSPHORUS [CHEM] Stat Lab 05/29/17 23:15 Completed PRO B-NATRIURETIC PEPTIDE Stat Lab 05/29/17 23:15 Completed TROPONIN T Stat Lab 05/29/17 23:15 Completed UA NIMS W/REFLEX CULT [URINALYSIS] Stat Lab 05/30/17 00:05 Results URINE CULTURE [RM] Routine Lab 05/30/17 00:02 Ordered Albuterol 2.5MG/Ipratrop 0.5MG [Duoneb (A & A)] Med 05/29/17 23:24 Discontinued 3 ml INH NOW ONE Budesonide [Pulmicort] Med 05/29/17 23:29 Discontinued 0.25 mg INH NOW ONE Furosemide [Lasix] Med 05/29/17 23:46 Discontinued 60 mg IV NOW ONE Methylprednisolone Sod Succ [Solu-Medrol] Med 05/29/17 23:24 Discontinued 125 mg IV NOW ONE Aerosol Treatments Routine Oth 05/29/17 23:24 Completed Aerosol Treatments Routine Oth 05/29/17 23:30 Completed Aerosol Treatments Stat Oth 05/29/17 23:24 Completed Aerosol Treatments Stat Oth 05/29/17 23:30 Completed BIPAP Stat Oth 05/30/17 00:23 Active EKG [EKG] Stat Ther 05/29/17 23:18 Ordered sPOKE WITH AND HE HAS ACCEPTED ADMISSION. Result Diagrams: 05/29/17 23:15 05/29/17 23:15 - REASSESSMENT Reassessment #1 Time Reassessed: 00:34 (SPOKE WITH AND HE ACCEPTED FOR ADMISSION. PATIENT IS NOW ON BIPAP MACHINE.) Departure - Departure Date of Disposition Decision: 05/30/17 Time of Disposition Decision: 00:36 DIAGNOSIS: COPD exacerbation, CHF (congestive heart failure) Disposition: ADMITTED INPATIENT 09 Certified Medical Emergency: Emergent Condition: Stable - Critical Care Note This patient required my direct & personal management of CC.: No Attestation - Physician/ CRESENCIO Attestation Patient care was provided by Advanced Practice Provider:: No The physician spent face to face time with patient:: Yes Advanced Practice Provider documentation review:: Supervising physician onsite and consulted in the evaluation and care of this patient. The physician did have a face to face encounter with the patient. This chart was documented by the indicated scribe, (Shyanne Workman Scribe) and accurately reflects the services I performed and decisions made by me, Bobby Jaeger DO, as attested by the provider's signature.
[2017-05-30] MEDS ORDERED: TYLENOL PO PRN (03:09)
[2017-05-30] MEDS ORDERED: DUONEB (A & A) INH PRN (03:09)
[2017-05-30] MEDS ORDERED: ZOFRAN IV PRN (03:09)
[2017-05-30] MEDS ORDERED: NORCO-10 PO PRN (03:09)
[2017-05-30] MEDS: DUONEB (A & A) INH SCH ×6 (03:30→23:54)
[2017-05-30] MEDS: LASIX IV SCH ×2 (04:00→16:23)
--- NOTE | 2017-05-30 04:06 | HISTORY AND PHYSICAL ---
CHIEF COMPLAINT: Shortness of breath. HISTORY OF PRESENT ILLNESS: This is a 67-year-old male with reported CHF, COPD, chronic respiratory failure, hypercapnic respiratory failure, presenting from home with progressive shortness of breath in the last 24 hours. His last admission was the end of April. He was discharged at the beginning of May 11. He has recurrent issues with hypercapnia and CO2 retention. He came in with progressive shortness of breath, tripod breathing, wheezing. He was placed on BiPAP almost immediately. He was also very confused, somewhat lethargic as well when he first came in. Last admission, he had pneumonia and he was treated accordingly. When the patient came in this time, his blood pressure was 168/62. Reportedly, he was 52% on room air, 88% on BiPAP, and he has been maintaining about between 90-92 with some tachycardia. His blood gas showed a pH of 7.43, pCO2 66 which is close to baseline, and a PaO2 of 43. He was admitted for acute hypoxic, hypercapnic respiratory failure. PAST MEDICAL HISTORY: 1. Chronic obstructive pulmonary disease. 2. Congestive heart failure, diastolic. 3. Hypertension. 4. Morbid obesity. 5. BPH. 6. Chronic venous insufficiency. 7. I think he has some primary psychiatric diagnosis. He is on multiple psychiatric medications. PAST SURGICAL HISTORY: 1. He has had a total hip surgery. 2. Tonsillectomy. 3. Appendectomy. 4. Venous stripping surgery. SOCIAL HISTORY: No current tobacco. He stopped about a year ago. He has 2-3 alcoholic drinks a day. ALLERGIES: Celecoxib. MEDICATIONS: He currently takes Ventolin q.4, Pulmicort 0.1 b.i.d., Wellbutrin 300 daily, Coreg 12.5 b.i.d., Klonopin 2 b.i.d., Depakote 1 g at bedtime, doxazosin 2 daily, Lasix 60 daily. He had been on 60 b.i.d. and then that was dropped down to 60 daily, probably due to renal issues, and has been placed back on 60 b.i.d. Neurontin 300 q.8, [place] p.r.n., lisinopril 40 daily, Remeron 15 daily, lycopene daily, Klor-Con 10 daily, terazosin 1 daily, Spiriva daily, trazodone 50 at bedtime, Effexor 25 daily. REVIEW OF SYSTEMS: Negative x10 point review of systems. PHYSICAL EXAMINATION: VITAL SIGNS: Blood pressure 128/63, heart rate of 91, respiratory rate 18, temperature 97.8 degrees, and he is about 90-92 on 100% BiPAP right now. GENERAL: Obese male not in respiratory distress. HEENT: Head examination: Normocephalic, atraumatic. Eye examination: Pupils equal, round, and reactive to light. Extraocular movements were intact. Ears, nose, and throat examination: He had moist mucous membranes. NECK EXAMINATION: Supple. CARDIOVASCULAR: Soft S1, S2. PULMONARY: Diffuse wheezing. Diminished air throughout. GI: Soft, nontender, protuberant, nondistended. Bowel sounds were positive. EXTREMITIES: No clubbing or cyanosis. LYMPHATIC EXAMINATION: He had 3+ pitting edema, pretty much from feet all the way up to about 2/3 of his legs bilaterally. SKIN EXAMINATION: He had erythema of both legs associated with the edema. NEUROLOGICAL: Examination was nonfocal. MUSCULOSKELETAL: Examination was 4/5. LABORATORY DATA: CMP was intact. Troponin was negative. White count normal at 4.9, hemoglobin and hematocrit 11 and 36, platelets 284,000. His chest x-ray, which we do not have a final report for, looks like I would say increasing cardiac silhouette, left infiltrate, likely effusion, possibly early infiltrate, resolving right infiltrate, perihilar increased densities. ASSESSMENT: This is a 67-year-old male with chronic obstructive pulmonary disease, sleep apnea, obesity hypoventilation, presenting with acute on chronic respiratory failure, both hypoxic and hypercapnic, likely related to chronic obstructive pulmonary disease exacerbation. 1. Chronic obstructive pulmonary disease exacerbation. Continue nebulizer treatments, intravenous steroids, and follow up. 2. Acute on chronic respiratory failure. We will attempt to manage with BiPAP. 3. Dysphagia, requiring mechanical full ventilator versus nocturnal BiPAP but we will try to get that resolved before further changes. 4. Hypertension. We will continue to monitor. 5. Diastolic heart failure. Generally speaking, I feel that he is overloaded based on his chest x-ray and his lower extremity edema and pulmonary edema. I think we need to aggressively diurese him and follow. I think he had a recent echocardiogram which was not that remarkable, that was in April with, again, intact ejection fraction at that time. He did have some left ventricular hypertrophy though, which may be consistent with diastolic dysfunction. 6. Disposition pending his clinical status. Thirty-two minute critical care time for positive pressure ventilation and acute respiratory failure with hypercapnia. cc: MD Salima Britt
[2017-05-30] MEDS: NEURONTIN PO SCH ×3 (04:45→20:34)
[2017-05-30] MEDS: LOVENOX SUBQ SCH (04:45)
[2017-05-30] MEDS: PROTONIX IV SCH (04:48)
[2017-05-30 05:08] LABS: ALLEN TEST YES; BE 14.5 mmoll (-3.0-3.0); BLOOD TYPE ARTERIAL; DRAW SITE R RADIAL; METHB 0.7 % (0.0-1.5); O2(CT) 14.6 mL/dL (15.0-23.0); PO2(98.6) 88 mmHg (60-100); SAMPLE BLOOD; SAO2 99.1 % (95.0-100.0); SRATE 4 BPM; THB 10.7 g/dL (11.5-17.4); pH(98.6) 7.43 (7.35-7.45)
[2017-05-30 05:09] LABS: MODALITY BI PAP; PCO2(98.6) 62 mmHg (35-45)
--- NOTE | 2017-05-30 06:52 | Diag Imaging Result Doc PS360 ---
EXAM: CHEST-PORTABLE HISTORY: dyspnea TECHNIQUE: Portable COMPARISON: 05/29/2017 FINDINGS: There is atelectasis in the lung bases as well as infiltrates. Heart is borderline mildly prominent. The vessels are not distended. I believe there is a small left pleural effusion. IMPRESSION: No interval improvement on the left with worsening infiltrates and atelectasis on the right. Electronically signed by Dhaval Castro 05/30/2017 6:49 AM
--- NOTE | 2017-05-30 07:20 | Diag Imaging Result Doc PS360 ---
CHEST-1 VIEW - 05/29/2017 INDICATION: CHF vs COPD TECHNIQUE: COMPARISON: 05/23/2017 FINDINGS: There appears to be worsening opacification of the left lung base due to some combination of atelectasis, infiltrate, or effusion. Stable minimal, patchy infiltrate in the medial right lung base. Sable cardiomegaly. Pulmonary vascularity remains normal. IMPRESSION: Worsening consolidation of the left lung base. Electronically signed by Eitan Mendez 05/30/2017 7:18 AM
--- NOTE | 2017-05-30 07:25 | EKG Report ---
Test Performed on : 05/29/2017 11:16:39 PM Test Reason : SOB Blood Pressure : / mmHG Vent. Rate : 092 BPM Atrial Rate : 092 BPM P-R Int : 190 ms QRS Dur : 084 ms QT Int : 358 ms P-R-T Axes : 060 021 055 degrees QTc Int : 442 ms Sinus rhythm. with premature supraventricular complexes. Otherwise normal ECG When compared with ECG of 03-MAY-2017 11:55, premature supraventricular complexes. are now present Unconfirmed Result
[2017-05-30] MEDS ORDERED: CARDURA PO SCH (09:00)
[2017-05-30] MEDS: MAXIPIME 1 GM in NS 50 ML IV SCH ×2 (09:27→20:34)
[2017-05-30] MEDS: SOLU-MEDROL IV SCH ×3 (09:27→23:26)
[2017-05-30] MEDS: COREG PO SCH ×2 (13:52→20:53)
[2017-05-30] MEDS: EFFEXOR PO SCH (13:52)
[2017-05-30] MEDS: PRINIVIL PO SCH (13:53)
[2017-05-30] MEDS: THERA M PLUS PO SCH (13:53)
[2017-05-30] MEDS: VICON-C PO SCH (13:54)
[2017-05-30] MEDS: WELLBUTRIN XL PO SCH (13:54)
--- NOTE | 2017-05-30 18:27 | PROGRESS NOTE ---
DATE: 05/30/2017 SUBJECTIVE: The patient was admitted on 05/30/2017, this morning. A 67-year-old presented with shortness of breath. He has history of congestive heart failure, COPD, chronic respiratory failure and hypercapnic respiratory failure, presenting from home with progressive shortness of breath for 24 hours. His last admission was the end of April, and was discharged beginning of May, on May 11. Recurrent issues of hypercapnia, CO2 retention. He came in with progressive shortness of breath and wheezing. Placed on BiPAP almost immediately. He was very confused, somewhat lethargic. He showed some steady improvement. Last admission, he had pneumonia, treated accordingly. Blood gas showed a pH 7.43, pCO2 of 66, PO2 of 43. PAST MEDICAL HISTORY: 1. Chronic obstructive pulmonary disease. 2. Congestive heart failure, diastolic. 3. Hypertension. 4. Morbid obesity. 5. Benign prostatic hypertrophy. 6. Chronic venous insufficiency. 7. He has some primary psychiatric diagnoses, is on some psychiatric medications. PAST SURGICAL HISTORY: 1. Total hip surgery. 2. Tonsillectomy. 3. Appendectomy. 4. Venous stripping surgery in his legs. OBJECTIVE: general: He has shown improvement. I saw him in the emergency room. Gas exchange is improved. Vital signs: Temperature 97.9 degrees, pulse 65, respirations 22, blood pressure 117/63. HEENT: Pupils are equal, round. Lungs: Clear in all lung sinha. Cardiovascular: Regular rhythm and rate, without murmur or S3. Genitourinary: Urine output was 1500 mL. LABORATORY: Looks good. Electrolytes and liver functions. IMAGING: Chest x-ray: No interval improvement on the left. Worsening infiltrate and atelectasis on the right. ASSESSMENT AND PLAN: 1. Exacerbation of chronic obstructive pulmonary disease. Continue nebulizer and steroids. Appears he may have pneumonia. 2. Mghfk-wa-kqkmegq respiratory failure. Continue BiPAP as needed. Bronchodilators. 3. Dysphagia, requires mechanical full ventilator versus normal BiPAP. Apparently, he has a breathing apparatus at home, which he states he does not like. 4. Hypertension. Blood pressure controlled. 5. Diastolic heart failure. Aware. Recent echocardiogram, ejection fraction was intact. Normal. REVIEW OF HIS ORDERS: I do not see any change at this point. He is on methylprednisone 60 mg IV q.8, Remeron 15 mg p.o. at bedtime, multivitamin, trazodone 50 mg at bedtime, Effexor 75 mg a day. Lasix, I gave him 1 dose of 60 mg early on. He has significant pedal edema, so we will give him . See how his volume status does. May need to get another dose of Lasix. cc: Link Blas MD
[2017-05-30] MEDS: BROVANA NEB INH SCH (19:14)
[2017-05-30] MEDS: MUCOMYST 20% INH SCH (19:14)
[2017-05-30] MEDS: DIAMOX IV SCH (20:34)
[2017-05-30] MEDS ORDERED: STERILE WATER INJ. ONE (20:34)
[2017-05-30] MEDS: DEPAKOTE PO SCH (20:35)
[2017-05-30] MEDS: REMERON PO SCH (20:35)
[2017-05-30] MEDS: DESYREL PO SCH (20:35)
--- NOTE | 2017-05-30 22:03 | CONSULTATION ---
DATE OF CONSULTATION: 05/30/2017 Pulmonary Consultation REQUESTING PHYSICIAN: Dr. Link Blas. REASON FOR CONSULTATION: Respiratory failure. HISTORY OF PRESENT ILLNESS: Mr. Cortes is a 67-year-old white male with severe COPD, morbid obesity, diastolic heart failure with chronic hypercapnic hypoxemic respiratory failure, who is routinely followed by this practitioner. The patient was admitted to the hospital in April with ventilatory failure requiring mechanical ventilation. He was discharged to the rehabilitation facility with marginal compliance on CPAP and returned to the hospital from the rehabilitation facility. The patient was discharged home on 05/11/2017. Due to patient's noncompliance with his CPAP, this machine was not available at home. My office has tried to get him a Trilogy and after significant amount of effort, a Trilogy was obtained approximately 6 days ago. His reports he has been compliant with the Trilogy and wearing it up to 8 hours per night. When he goes to sleep he does have periods where his oxygen saturation will drop into the 70s and so the sleep therapist has returned and with adjustments, his oxygen saturations remain in the low to mid 80s at night. During the daytime he is more functional. Unfortunately, he developed progressive shortness of breath prior to this admission. Review of his weight indicates significant fluid retention. He has been placed on BiPAP and is currently saturating in the 90s, but is requiring significant oxygen concentration. PAST MEDICAL HISTORY: Problem list: 1. COPD with chronic hypoxemic and hypercapnic respiratory failure. 2. Diastolic heart failure. 3. Morbid obesity. 4. Hypertension. 5. BPH. 6. Chronic lower extremity edema. 7. Bipolar disorder. 8. Posttraumatic stress disorder. SOCIAL HISTORY: Prior tobacco use. Previous alcohol use, but none after his recent admissions. FAMILY HISTORY: Positive for lymphoma and colon cancer. REVIEW OF SYSTEMS: Limited. The patient is confused and on BiPAP. PHYSICAL EXAMINATION: General: Reveals an obese, white male who appears his stated age or older on BiPAP ventilation. Vital signs: BP 117/63, heart rate 65, respiration rate 20, oxygen saturation 98%. HEENT: Pupils are equal and reactive. Oropharynx evaluation is limited with BiPAP in place. Neck: Supple. Chest: Reveals diminished breath sounds bilaterally. Cardiac Exam: Distant heart sounds. Normal S1, normal S2. Abdomen: Obese and soft. Extremities: Reveal 2+ edema. LABORATORIES: Chest x-ray reveals bibasilar atelectasis/infiltrates with possible small effusion. Sodium 141, potassium 4.5, chloride 95, bicarbonate 36, BUN 11, creatinine 1.1. Arterial blood gas on BiPAP pH 7.43, pCO2 66, PO2 of 43. Repeat arterial blood gas this morning pH 7.43, pCO2 of 66, PO2 of 88. IMPRESSION: Complicated 67-year-old white male with chronic obstructive pulmonary disease, diastolic heart failure, and obstructive sleep apnea, who presents with acute on chronic hypoxemic respiratory failure. The patient has had difficulty with significant hypercapnia in the past, but this has improved. Hopefully with steroids, antibiotics, diuretics and bronchodilators, his clinical course will improve and he will not require intubation and mechanical ventilation. I believe he will have an improvement long-term if he can be maintained on trilogy once he has diuresed. RECOMMENDATIONS: 1. Continue BiPAP as you are doing. 2. Continue q. 12 Lasix as tolerated. 3. Continue bronchodilators. I will add Brovana as a long-acting bronchodilator for this patient. 4. Agree with broad-spectrum antibiotics pending clinical improvement. 5. Additional recommendations pending hospital course. cc: Anjum Carcamo MD
[2017-05-31] MEDS: DIAMOX IV SCH (02:05)
[2017-05-31] MEDS: LASIX IV SCH ×2 (02:05→13:53)
[2017-05-31] MEDS ORDERED: STERILE WATER INJ. ONE (02:05)
[2017-05-31] MEDS: PROTONIX IV SCH (02:10)
[2017-05-31] MEDS: LOVENOX SUBQ SCH (02:10)
[2017-05-31] MEDS: DUONEB (A & A) INH SCH ×6 (03:01→23:20)
[2017-05-31 04:39] LABS: ALLEN TEST YES; BE 12.4 mmoll (-3.0-3.0); BLOOD TYPE ARTERIAL; DRAW SITE R RADIAL; METHB 0.7 % (0.0-1.5); O2(CT) 13.1 mL/dL (15.0-23.0); PO2(98.6) 74 mmHg (60-100); SAMPLE BLOOD; SAO2 96.7 % (95.0-100.0); THB 9.8 g/dL (11.5-17.4); pH(98.6) 7.43 (7.35-7.45)
[2017-05-31 04:40] LABS: PCO2(98.6) 58 mmHg (35-45)
[2017-05-31 04:41] LABS: MODALITY BI PAP
[2017-05-31] MEDS: NEURONTIN PO SCH ×3 (05:06→20:36)
[2017-05-31 05:29] LABS: AGAP 10; ALBUMIN 2.9 g/dL (3.5-5.0); ALKALINE PHOSPHATASE 54 U/L (32-122); BUN 23 mg/dL (8-22); CALCIUM 8.8 mg/dL (8.8-10.2); CHLORIDE 99 mmol/L (98-107); COSMO 296; GOT 9 U/L (10-34); GPT 9 U/L (10-44); MAGNESIUM 2.3 mg/dL (1.5-2.7); POTASSIUM 3.4 mmol/L (3.5-5.1); SODIUM 143 mmol/L (136-145); TCO2 34 mmol/L (25-35); TOTAL BILIRUBIN 0.18 mg/dL (0.20-1.00); TOTAL PROTEIN 6.1 g/dL (6.3-8.3)
--- NOTE | 2017-05-31 07:29 | Diag Imaging Result Doc PS360 ---
CHEST-PORTABLE - 05/31/2017 INDICATION: dyspnea TECHNIQUE: COMPARISON: 05/30/2017 FINDINGS: Stable left basilar consolidation/effusion. Stable infiltrate in the right lung base. Stable cardiomegaly. Pulmonary vascularity remains top normal. No definite edema. IMPRESSION: No change from prior. Electronically signed by Eitan Mendez 05/31/2017 7:27 AM
[2017-05-31] MEDS: SOLU-MEDROL IV SCH ×3 (07:45→23:16)
[2017-05-31] MEDS: MAXIPIME 1 GM in NS 50 ML IV SCH ×2 (07:46→19:46)
[2017-05-31] MEDS: MUCOMYST 20% INH SCH ×2 (08:09→19:31)
[2017-05-31] MEDS: BROVANA NEB INH SCH ×2 (08:09→19:31)
[2017-05-31] MEDS: VICON-C PO SCH (09:41)
[2017-05-31] MEDS: COREG PO SCH ×2 (09:41→20:35)
[2017-05-31] MEDS: THERA M PLUS PO SCH (09:41)
[2017-05-31] MEDS: PRINIVIL PO SCH (09:42)
[2017-05-31] MEDS: EFFEXOR PO SCH (09:42)
[2017-05-31] MEDS: WELLBUTRIN XL PO SCH (09:43)
--- NOTE | 2017-05-31 10:18 | PROGRESS NOTE ---
DATE: 05/31/2017 SUBJECTIVE: Mr. Cortes presented yesterday to the emergency room. A 67-year old reported to have congestive heart failure, COPD, chronic respiratory failure, hypercapnic respiratory failure, presenting from home with progressive shortness of breath for the last 24 hours prior to admission. He had an admission back in April, discharged in the beginning of May. Reported issues with hypercapnic and CO2 retention. He was placed on BiPAP, required BiPAP most of the day yesterday and through the night. He is doing much better this morning. He has a history of congestive heart failure, hypertension, morbid obesity, benign prostatic hypertrophy, chronic venous insufficiency. He also has some primary psychiatric diagnosis. He is on some medications, and I think mainly it has been anxiety, possibly depression. We did not explore these. He is frustrated that he is weak, would like to get some physical therapy going. I think he has been to rehab before inpatient in [place]. I think he went to [facility] at one time as well. OBJECTIVE: Vital signs: He remains afebrile, temp 96.5 degrees, pulse 68, respirations 16, blood pressure 143/73. Lungs: Are clear in all lung sinha. Cardiovascular: Regular rhythm and rate without murmur or S3. He has decreased breath sounds both bases. No active wheezing at this time. He is in sinus rhythm. Sinus tachycardia. : Urine output was about 3200 mL. LAB: Reviewed from the and compared to lab today: Sodium 143, potassium 3.4, chloride 99, BUN 23, creatinine 1.1. Chest x-ray done this morning by report: No change, stable left basilar consolidation, effusions, stable infiltrate in the right lung base. Pulmonary vascularity remains normal. Dr. Carcamo is following. ASSESSMENT AND PLAN: 1. A 67-year-old male with chronic obstructive pulmonary disease, diastolic heart failure or congestive heart failure with normal ejection fraction, obstructive sleep apnea, morbid obesity presented with chronic hypoxemic respiratory failure. He has had difficulty with significant hypercapnia in the past. It improved this time now though, and we are going to continue steroids, antibiotics, diuretics, and bronchodilators. Begin physical therapy. Try and get him out of bed. 2. Nutrition seems to be doing good. We are going to diurese a little bit with some Lasix. 3. Morbid obesity. He is going to need to obviously pursue weight loss as well. Low carbohydrate diet. 4. Hypertension. Blood pressure control. 5. Review of his lab, they looked good. I do not see any changes on his orders. cc: Link Blas MD
[2017-05-31 10:49] LABS: AGAP 13; BUN 24 mg/dL (8-22); CALCIUM 8.6 mg/dL (8.8-10.2); CHLORIDE 94 mmol/L (98-107); COSMO 294; POTASSIUM 3.5 mmol/L (3.5-5.1); SODIUM 140 mmol/L (136-145); TCO2 33 mmol/L (25-35)
[2017-05-31] MEDS: CARDURA PO SCH (10:54)
[2017-05-31] MEDS: KLONOPIN PO PRN ×2 (10:54→23:16)
[2017-05-31] MEDS: HUMULIN R SUBQ SCH ×2 (16:23→20:36)
[2017-05-31] MEDS: DEPAKOTE PO SCH (20:35)
[2017-05-31] MEDS: REMERON PO SCH (20:35)
[2017-05-31] MEDS: DESYREL PO SCH (20:36)
[2017-06-01] MEDS: LASIX IV SCH ×2 (02:23→13:41)
[2017-06-01] MEDS: LOVENOX SUBQ SCH (02:23)
[2017-06-01] MEDS: PROTONIX IV SCH (02:23)
[2017-06-01] MEDS: SODIUM CHLORIDE 0.9% INJ SCH (02:23)
[2017-06-01] MEDS: DUONEB (A & A) INH SCH ×5 (02:43→23:30)
--- NOTE | 2017-06-01 03:24 | PROGRESS NOTE ---
DATE: 05/31/2017 ADDENDUM: Note, he still has 2+ pitting edema from his ankles to the upper guardado. It is pitting edema. He is on Lasix 60 mg IV q.12 hours and we will continue. We will check electrolytes and follow those. cc: Link Blas MD
[2017-06-01 04:14] LABS: ALLEN TEST YES; BE 8.1 mmoll (-3.0-3.0); BLOOD TYPE ARTERIAL; DRAW SITE R RADIAL; METHB 1.1 % (0.0-1.5); O2(CT) 12.4 mL/dL (15.0-23.0); PO2(98.6) 73 mmHg (60-100); SAMPLE BLOOD; SAO2 96.7 % (95.0-100.0); THB 9.3 g/dL (11.5-17.4); pH(98.6) 7.42 (7.35-7.45)
[2017-06-01 04:15] LABS: MODALITY BI PAP; PCO2(98.6) 52 mmHg (35-45)
[2017-06-01] MEDS: NEURONTIN PO SCH ×3 (05:09→20:31)
[2017-06-01 05:12] LABS: AGAP 14; ALBUMIN 2.9 g/dL (3.5-5.0); ALKALINE PHOSPHATASE 68 U/L (32-122); BUN 26 mg/dL (8-22); CALCIUM 8.5 mg/dL (8.8-10.2); CHLORIDE 97 mmol/L (98-107); COSMO 296; GOT 10 U/L (10-34); GPT 10 U/L (10-44); POTASSIUM 3.2 mmol/L (3.5-5.1); SODIUM 141 mmol/L (136-145); TCO2 30 mmol/L (25-35); TOTAL BILIRUBIN 0.15 mg/dL (0.20-1.00); TOTAL PROTEIN 5.7 g/dL (6.3-8.3)
[2017-06-01] MEDS: HUMULIN R SUBQ SCH ×4 (06:02→20:32)
--- NOTE | 2017-06-01 07:22 | Diag Imaging Result Doc PS360 ---
EXAM: CHEST-PORTABLE HISTORY: dyspnea TECHNIQUE: AP portable at 0500 COMMENT: There is diminishment in the pleural fluid on the right side compared to 05/31/2017. There is less atelectasis on the right. IMPRESSION: Improved right pleural effusion and atelectasis. Electronically signed by Art Larson 06/01/2017 7:19 AM
[2017-06-01] MEDS: SOLU-MEDROL IV SCH ×2 (08:16→20:32)
[2017-06-01] MEDS: MAXIPIME 1 GM in NS 50 ML IV SCH ×2 (08:17→19:44)
--- NOTE | 2017-06-01 09:14 | PROGRESS NOTE ---
DATE: 06/01/2017 SUBJECTIVE: Mr. Cortes feels like he is breathing comfortably. He admits he is weak, cannot walk or bear weight right now, but that seems to be improving. The swelling has gone down in his feet. OBJECTIVE: Vital Signs: On exam today temp 97.5 degrees, pulse 50, respirations 17, blood pressure 136/74. Lungs: Clear in all lung sinha. Cardiovascular exam: Regular rhythm and rate without murmur or S3. Abdomen: Soft. Skin: Warm and dry. He has 1+ pitting edema from the ankle to mid guardado. Decreased erythema on the anterior guardado. : His urine output is 2500 mL. LAB: Labs from the twenty- were reviewed. Electrolytes: This morning sodium 141, potassium 3.2, chloride 97, bicarbonate 30, BUN 26, creatinine 1.1. Blood sugar 293, 280, and 268. Albumin is 2.9. X-RAY: Chest x-ray: Improved right pleural effusion and atelectasis. ASSESSMENT AND PLAN: 1. A 67-year-old with chronic obstructive pulmonary disease, diastolic heart failure, congestive heart failure with normal ejection fraction, obstructive sleep apnea, morbid obesity, chronic hypoxemic respiratory failure. He has had significant hypercapnia in the past. He is diuresing; actually fluid is going down and I think overall doing much better. 2. Erythema on both lower extremities. I think he had some mild cellulitis, which has improved. 3. Morbid obesity. Continue to pursue weight loss. 4. Hypertension. Blood pressure is controlled. 5. General weakness, deconditioning. Hopefully we can move him to the floor today and continue his physical therapy. He wants to try and go home with home health. I am going to supplement his potassium. Note that his magnesium looks good Review of his orders: I do not see any other changes. cc: Link Blas MD
[2017-06-01] MEDS: MUCOMYST 20% INH SCH ×2 (09:19→19:36)
[2017-06-01] MEDS: BROVANA NEB INH SCH ×2 (09:19→19:36)
[2017-06-01] MEDS: PRINIVIL PO SCH (10:30)
[2017-06-01] MEDS: COREG PO SCH ×2 (10:30→20:31)
[2017-06-01] MEDS: WELLBUTRIN XL PO SCH (10:31)
[2017-06-01] MEDS: KLOR-CON PO SCH ×2 (10:31→20:31)
[2017-06-01] MEDS: VICON-C PO SCH (10:31)
[2017-06-01] MEDS: EFFEXOR PO SCH (10:31)
[2017-06-01] MEDS: THERA M PLUS PO SCH (10:32)
[2017-06-01] MEDS: CARDURA PO SCH (10:42)
--- NOTE | 2017-06-01 15:42 | Extremity Venous Study ---
PROCEDURE NAME: Venous U/S Bilateral Legs - 05/30/2017 LOWER EXTREMITY VENOUS DUPLEX STUDY: REFERRING PHYSICIAN: Romulo Tate MD READING PHYSICIAN: Faizan Cabrales MD TRUST CLERK: Yaakov. INDICATION: Severe swelling of the legs and shortness of breath. COMPARISON STUDY: 01/19/2017. FINDINGS: The deep and superficial veins of both lower extremities were imaged throughout their course. They are compressible, patent and without thrombus. INTERPRETATION: There is no evidence of deep or superficial venous thrombosis in either lower extremity. This is unchanged from the prior study on 01/18/2017 and in that study, it was noted that both the greater saphenous veins have been ablated from the mid thigh to the calf bilaterally. cc: MD Romulo Duque MD
[2017-06-01] MEDS ORDERED: SOLU-MEDROL IV SCH (16:00)
[2017-06-01] MEDS: KLONOPIN PO PRN (16:28)
[2017-06-01] MEDS: REMERON PO SCH (20:32)
[2017-06-01] MEDS: DESYREL PO SCH (20:32)
[2017-06-01] MEDS: DEPAKOTE PO SCH (20:32)
[2017-06-02] MEDS: SODIUM CHLORIDE 0.9% INJ SCH (02:39)
[2017-06-02] MEDS: LASIX IV SCH ×2 (02:39→13:39)
[2017-06-02] MEDS: LOVENOX SUBQ SCH (02:39)
[2017-06-02] MEDS: PROTONIX IV SCH (02:39)
[2017-06-02] MEDS: DUONEB (A & A) INH SCH ×6 (02:40→22:45)
[2017-06-02] MEDS: NEURONTIN PO SCH ×3 (04:28→21:43)
[2017-06-02 05:37] LABS: AGAP 16; BUN 29 mg/dL (8-22); CALCIUM 8.4 mg/dL (8.8-10.2); CHLORIDE 97 mmol/L (98-107); COSMO 300; POTASSIUM 4.1 mmol/L (3.5-5.1); SODIUM 143 mmol/L (136-145); TCO2 30 mmol/L (25-35)
[2017-06-02] MEDS: HUMULIN R SUBQ SCH ×3 (06:22→16:20)
[2017-06-02] MEDS: MUCOMYST 20% INH SCH (08:02)
[2017-06-02] MEDS: BROVANA NEB INH SCH (08:02)
--- NOTE | 2017-06-02 08:25 | PROGRESS NOTE ---
DATE: 06/02/2017 SUBJECTIVE: He is feeling better, breathing better, decreased swelling in his legs. Still has Michaud catheter in. OBJECTIVE: Vital signs: Temp 97.2 degrees, pulse 47, respirations 16, blood pressure 150/79. Lungs: Clear in all lung sinha. Cardiovascular: Regular rate without murmur or S3. Abdomen: Soft. Skin: Is warm and dry. : Urine output over 5 L. LABORATORY DATA: Blood sugar 268, 295, and 244. Chemistries from this morning: Sodium 143, potassium 4.1, chloride 97, BUN 29, and creatinine 1.1, blood sugar 366, 295, 266, and 244. Chest x-ray from yesterday improved right pleural effusion and atelectasis. There is diminishment of the pleural fluid on the right side compared to 05/31. ASSESSMENT AND PLAN: 1. Chronic obstructive pulmonary disease. 2. Obesity. 3. Diastolic heart failure seems to be improving. His swelling is going down in his leg. He has 1+ pitting edema at the present time. 4. Nutrition. We switched him to a diabetic diet. 5. Morbid obesity. Talked about the importance of low carbohydrate diet. 6. Elevated blood sugars. I have decreased his Solu-Medrol and changed him to a diabetic diet. Hopefully, this will improve. 7. Hypertension. Blood pressure is controlled. 8. General weakness, deconditioning, obesity. Encourage physical therapy. He would like to try and go home. He needs to be able to get out of bed and get to the bedside commode with minimal assistance, and he does not want the Michaud catheter out today. So we will see if we can take the catheter out tomorrow, review of his orders. He is on cefepime 1 g q.12h. He seems to be improving, clinically treating him for pneumonia. cc: Link Blas MD
[2017-06-02] MEDS: MAXIPIME 1 GM in NS 50 ML IV SCH ×2 (09:23→21:43)
[2017-06-02] MEDS: WELLBUTRIN XL PO SCH (09:24)
[2017-06-02] MEDS: EFFEXOR PO SCH (09:24)
[2017-06-02] MEDS: SOLU-MEDROL IV SCH (09:24)
[2017-06-02] MEDS: VICON-C PO SCH (09:25)
[2017-06-02] MEDS: KLOR-CON PO SCH ×2 (09:25→21:43)
[2017-06-02] MEDS: CARDURA PO SCH (09:25)
[2017-06-02] MEDS: THERA M PLUS PO SCH (09:25)
[2017-06-02] MEDS: COREG PO SCH ×2 (09:26→21:43)
[2017-06-02] MEDS: PRINIVIL PO SCH (09:27)
[2017-06-02] MEDS: KLONOPIN PO PRN (18:44)
[2017-06-02] MEDS: DESYREL PO SCH (21:43)
[2017-06-02] MEDS: DEPAKOTE PO SCH (21:43)
[2017-06-02] MEDS: REMERON PO SCH (21:43)
[2017-06-03] MEDS: PROTONIX IV SCH (03:02)
[2017-06-03] MEDS: LOVENOX SUBQ SCH (03:02)
[2017-06-03] MEDS: SODIUM CHLORIDE 0.9% INJ SCH (03:02)
[2017-06-03] MEDS: LASIX IV SCH ×2 (03:02→14:21)
[2017-06-03] MEDS: DUONEB (A & A) INH SCH ×5 (03:38→16:15)
[2017-06-03] MEDS: NEURONTIN PO SCH ×2 (05:34→14:21)
[2017-06-03 06:01] LABS: HEMOGLOBIN A1C 5.5 % (4.8-6.0)
[2017-06-03 06:09] LABS: AGAP 12; ALBUMIN 3.5 g/dL (3.5-5.0); ALKALINE PHOSPHATASE 59 U/L (32-122); BUN 33 mg/dL (8-22); CALCIUM 8.4 mg/dL (8.8-10.2); CHLORIDE 100 mmol/L (98-107); COSMO 301; GOT 39 U/L (10-34); GPT 43 U/L (10-44); MAGNESIUM 2.2 mg/dL (1.5-2.7); POTASSIUM 3.8 mmol/L (3.5-5.1); SODIUM 146 mmol/L (136-145); TCO2 34 mmol/L (25-35); TOTAL PROTEIN 6.2 g/dL (6.3-8.3)
[2017-06-03] MEDS: BROVANA NEB INH SCH ×2 (07:25→08:10)
[2017-06-03] MEDS: MUCOMYST 20% INH SCH ×2 (07:25→08:11)
[2017-06-03] MEDS: MAXIPIME 1 GM in NS 50 ML IV SCH (09:21)
[2017-06-03] MEDS: EFFEXOR PO SCH (09:22)
[2017-06-03] MEDS: CARDURA PO SCH (09:22)
[2017-06-03] MEDS: WELLBUTRIN XL PO SCH (09:22)
[2017-06-03] MEDS: VICON-C PO SCH (09:22)
[2017-06-03] MEDS: PRINIVIL PO SCH (09:22)
[2017-06-03] MEDS: THERA M PLUS PO SCH (09:24)
[2017-06-03] MEDS: COREG PO SCH (09:24)
[2017-06-03] MEDS: KLOR-CON PO SCH (09:24)
[2017-06-03] MEDS: KLONOPIN PO PRN (09:53)
[2017-06-03 12:05] VITALS: BP 138/82
--- NOTE | 2017-06-03 16:05 | DISCHARGE SUMMARY ---
ADMISSION DATE: 06/01/2017 DISCHARGE DATE: 06/03/2017 HOSPITAL COURSE: This is a 67-year-old who was admitted on 06/01/2017. He is a patient of Dr. Salima Madrigal. He came in with shortness of breath. Reported history of congestive heart failure, COPD, chronic respiratory failure, hypercapnic respiratory failure. Presented from the home with progressive shortness of breath over the last 24 hours. He was admitted at the end of April and he was discharge beginning of May. Recurrent issues with hypercapnia, CO2 retention, progressive shortness of breath, wheezing. He was placed on BiPAP and he was admitted with COPD exacerbation, CO2 retention. He seemed to show steady improvement, although he required BiPAP. Eventually able to wean that down. Able to take his Michaud catheter out and he was able to eat and swallow without difficulty. He was getting up with physical therapy. I suspect a component of diastolic dysfunction. At any rate, he was ready go home with home health on 06/03/2017. DISCHARGE MEDICATIONS: He will have his DuoNebs as needed. Brovana nebulizer 15 mcg q.12. Wellbutrin XL 300 mg daily. Coreg 12.5 mg b.i.d. Stop his antibiotic. He was on Klonopin 1 mg p.o. q.12 p.r.n. Depakote 1000 mg p.o. at bedtime. Cardura 2 mg daily. We will give him some Lasix to take p.o. twice a day. Neurontin 300 mg 3 times a day. [place] 10s 1 q.8 hours p.r.n. Prinivil 40 mg a day. Remeron 15 mg a day. Thera-M Plus 1 tablet a day. Klor-Con 40 mEq p.o. b.i.d. Desyrel 50 mg daily. Effexor 75 mg a day. Vitamin B complex. Vitamin C. Magnesium and zinc, 1 a day. DISCHARGE FOLLOW-UP: He will get follow-up with home health. Follow with Dr. Carcamo and follow with his primary care provider. cc: Link Blas MD
== END 2017-06-03 17:43 | disposition home health service (06) ==
LOC: ED 23:00 → SUATTDRO 05-30 02:09 → EDIPHOLD 05-30 02:09 → ICU 05-30 16:50 → 4N 06-02 18:52
PROVIDERS: ATTEND Emergency Medicine

== ENCOUNTER 2018-12-06 11:14 | Inpatient (IN) ==
[2018-12-06 12:39] LABS: ALLEN TEST YES; BE 11.6 mmoll (-3.0-3.0); BLOOD TYPE ARTERIAL; HCO3-(ACT) 33.9 mmoll (20.0-26.0); METHB 1.1 % (0.0-1.5); O2(CT) 15.1 mL/dL (15.0-23.0); O2HB 95.2 % (95.0-99.0); PO2(98.6) 83 mmHg (60-100); SAMPLE BLOOD; SAO2 98.6 % (95.0-100.0); THB 11.2 g/dL (11.5-17.4); pH(98.6) 7.43 (7.35-7.45)
[2018-12-06 12:40] LABS: MODALITY CANNULA
[2018-12-06 12:44] LABS: PCO2(98.6) 57 mmHg (35-45)
--- NOTE | 2018-12-06 12:49 | Diag Imaging Result Doc PS360 ---
EXAM: CHEST-1 VIEW INDICATION: sob TECHNIQUE: One view COMPARISON: 08/01/2018 FINDINGS: The lungs are grossly clear. There is no discrete pleural fluid collection or pneumothorax. The cardiomediastinal silhouette and central vasculature are grossly unremarkable. IMPRESSION: No evidence of acute pathology by plain radiograph. Electronically signed by Chapo Shore 12/06/2018 12:46 PM
[2018-12-06 14:44] LABS: BASO# 0.02 X1000 (0.0-0.2); BASO% 0.3 % (0.0-0.8); EOS# 0.32 X1000 (0.0-0.7); EOS% 4.4 % (0.0-10.0); HEMATOCRIT 36.4 % (42.0-52.0); HEMOGLOBIN 11.5 g/dL (14.0-18.0); IMM GRAN# 0.02 X1000 (0.0-0.04); IMM GRAN% 0.3 % (0.0-0.5); LYMPH# 1.84 X1000 (1.2-3.4); LYMPH% 25.4 % (20.5-51.1); MCH 32.9 PG (27-31); MCHC 31.6 g/dL (33-37); MONO# 1.51 X1000 (0.11-0.59); MONO% 20.9 % (1.7-9.3); MPV 9.6 FL (7.4-10.4); NEUT# 3.52 X1000 (1.4-6.5); NEUT% 48.7 % (42.2-75.2); PLT 156 X1000 (130-400); RDW 15.9 % (11.5-14.5); WBC 7.23 X1000 (4.8-10.8)
[2018-12-06 14:46] LABS: FREE T4 0.98 ng/dL (0.93-1.70)
[2018-12-06 14:48] LABS: TSH 7.49 uIUmL (0.27-4.20)
[2018-12-06 14:50] LABS: ALB/GLOB RATIO 0.9; ALBUMIN 3.2 g/dL (3.5-5.0); CALCIUM 9.4 mg/dL (8.8-10.2); CREATININE 2.3 mg/dL (0.7-1.2); POTASSIUM 4.7 mmol/L (3.5-5.1); TOTAL BILIRUBIN 0.53 mg/dL (0.20-1.00); TOTAL PROTEIN 6.9 g/dL (6.3-8.3)
[2018-12-06 15:05] LABS: BANDS 2 % (0-1); EOS 3 % (1-10); LYMPHS 29 % (21-51); MONO 14 % (1-9); SEGS 47 % (42-75)
[2018-12-06 15:40] LABS: URINE SOURCE VOIDED
[2018-12-06 15:47] LABS: BILIRUBIN URINE NEGATIVE (NEGATIVE); BLOOD URINE NEGATIVE (NEGATIVE); COLOR YELLOW; GLUCOSE URINE NEGATIVE (NEGATIVE); KETONE URINE NEGATIVE (NEGATIVE); LEUKOCYTES URINE MODERATE (NEGATIVE); NITRITE URINE NEGATIVE (NEGATIVE); PH URINE 6.5; PROTEIN URINE NEGATIVE (NEGATIVE); SP GRAVITY URINE 1.001; TURBIDITY URINE CLEAR (CLEAR); UROBILINOGEN URINE NORMAL (NORMAL)
[2018-12-06 15:48] LABS: UR EPITHELIAL CELLS <10 /HPF (<10); URINE BACTERIA 1+ /HPF; URINE RBC <10 /HPF (<10); URINE WBC TNTC /HPF (<10)
[2018-12-06] MEDS ORDERED: ROCEPHIN 1 GM in NS 50 ML IV ONE (16:32)
[2018-12-06] MEDS ORDERED: ZOFRAN IV PRN (17:54)
[2018-12-06] MEDS: NS 1,000 ML IV SCH (18:25)
[2018-12-06] MEDS ORDERED: ZOSYN 2.25 GM in NS 50 ML IV SCH (19:00)
[2018-12-06] MEDS ORDERED: ZYVOX 600 MG/D5W 600 MG/300 ML IVPB IV SCH (19:00)
[2018-12-06 19:22] LABS: UR CREAT RANDOM 58.5 mg/dL (14-26); UR PROT RANDOM 10.8 mg/dL
[2018-12-06] MEDS ORDERED: COREG PO SCH (21:00)
[2018-12-06] MEDS: MINIPRESS PO SCH (21:00)
--- NOTE | 2018-12-06 22:02 | Diag Imaging Result Doc PS360 ---
EXAM: CT HEAD W/O CONTRAST 12/06/2018 HISTORY: encephalopathy TECHNIQUE: This exam was performed using automated exposure control, adjustment of mA or kV according to patient size, and/or use of iterative reconstruction technique. COMMENT: There are calcifications in the left vertebral artery and both internal carotid arteries. There is no evidence of mass effect, bleed, or abnormal extra-axial fluid collection. There is mild generalized cerebral and cerebellar atrophy. There is slightly worsened atrophy compared to the previous study of 10/22/2016, otherwise there has been no significant change. IMPRESSION: Cerebral atrophy. No evidence of acute intracranial disease. Electronically signed by Art Larson 12/06/2018 9:59 PM
--- NOTE | 2018-12-06 22:03 | HISTORY AND PHYSICAL ---
PRIMARY CARE PHYSICIAN: Dr. Salima Madrigal. CHIEF COMPLAINT: Confusion at home as per the patient's . HISTORY OF PRESENT ILLNESS: Mr. Cortes is a 68-year-old male with a history of chronic hypercapnic and hypoxemic respiratory failure on chronic home oxygen, bilateral lower extremity lymphedema, chronic back pain, congestive heart failure and COPD who was brought to the ER after the patient was noted to be hallucinating and confused for the last week. According to the patient's , for about one week the patient has had episodes of periodical confusion with hallucinations as well as a very poor appetite. The patient is wheelchair bound and is unable to ambulate. The patient is awake and alert. He states that he realizes that he has been confused over the last several days and he does not know why. He denies having any chest pain, headache, dizziness or shortness of breath. In the ER, a urinalysis was performed which was noted to be positive. Also, the patient was noted to have cellulitis involving both lower extremities. PAST MEDICAL HISTORY: 1. Hypothyroidism. 2. Anxiety disorder. 3. COPD. 4. Depression. 5. Obstructive sleep apnea. 6. Chronic back pain. 7. Morbid obesity. 8. Congestive heart failure. 9. Chronic kidney disease 10. Bilateral lower extremity stasis dermatitis with lymphedema. 11. Chronic hypoxemic and hypercapnic respiratory failure on chronic home O2 5 L NC 12. Alcohol dependence PAST SURGICAL HISTORY: 1. Right total hip replacement in August 2016. 2. Appendectomy. 3. Tonsillectomy. 4. Cataract surgery. SOCIAL HISTORY: The patient is and lives at home with his . The patient is wheelchair bound. He denies any tobacco usage. The patient does admit to 2 alcoholic beverages daily. ALLERGIES: Celebrex. HOME MEDICATIONS: 1. DuoNeb 3 mL inhaled every 6 hours. 2. Brovana 15 mcg inhaled every 12 hours. 3. Wellbutrin XL 300 mg p.o. every morning. 4. Coreg 12.5 mg p.o. twice a day. 5. Klonopin 2 mg p.o. twice a day p.r.n. for anxiety. 6. Depakote 500 mg p.o. at bedtime. 7. Lasix 180 mg daily. 8. Remeron 15 mg p.o. at bedtime. 9. Synthroid 100 mcg oral daily. 10. Klor-Con 60 mEq oral daily. 11. Minipress 1 mg p.o. at bedtime. 12. Aldactone 25 mg p.o. daily. 13. Spiriva 18 mcg inhaled daily. 14. Trazodone 50 mg p.o. at bedtime. 15. Effexor ER 75 mg 3 tablets oral every morning. REVIEW OF SYSTEMS: A 12-point review of systems has been performed. Please refer to the history of present illness for pertinent positives and negatives. PHYSICAL EXAMINATION: VITAL SIGNS: Temperature 97.9, blood pressure 101/58, heart rate 67, respirations 19. O2 sats 100% on 5 L nasal cannula. GENERAL: This is a morbidly obese male lying in bed in no acute distress. HEENT: Head normocephalic, atraumatic. Eyes: Conjunctiva clear, EOMI, PERRLA. NECK: Supple, no JVD. No lymphadenopathy. No carotid bruits. HEART: S1, S2 normal, RRR LUNGS: No wheezing, no rales, no rhonchi. Clear to auscultation. ABDOMEN: Positive bowel sounds. Soft, nontender, nondistended. EXTREMITIES: 1+ edema with erythema superimposed on stasis dermatitis with lymphedema. NEUROLOGIC: The patient is oriented to person and place. He is able to move all 4 extremities. LABS: White blood cell count 7.2, hemoglobin 11, hematocrit 36, platelets 156,000. ABG: pH of 7.43, pCO2 57, PO2 83, bicarb 33. Sodium 142, potassium 4.7, chloride 95, CO2 37, BUN 24, creatinine 2.3, glucose 87. TSH 7.49, alkaline phosphatase 143. UA positive for moderate leukocytes, WBCs and bacteria. Chest x-ray shows no acute disease. ASSESSMENT AND PLAN: 1. Metabolic encephalopathy. The patient has cellulitis and a urinary tract infection. This may be contributing to the patient's delirium. We will treat the underlying infections and monitor the patient's mental status closely. We will also obtain a head CT to rule out the possibility of a stroke. 2. Bilateral lower extremity cellulitis with stasis dermatitis. We will order blood cultures and start the patient on antibiotic therapy. Will also consult ID for further treatment recommendations. 3. Urinary tract infection. A urine culture has been ordered. Antibiotic therapy is in progress. 4. Chronic hypoxemic and hypercapnic respiratory failure. The patient appears to be at baseline. We will continue with bronchodilator therapy and supplemental oxygen. 5. Acute kidney injury on chronic kidney disease. The patient's baseline creatinine appears to be between 1.3 and 1.4. We will check urine studies and start the patient on gentle fluid hydration and monitor the patient's urine output closely. Will avoid nephrotoxic agents. 6. Obstructive sleep apnea. The patient uses Trilogy at home. 7. Hypothyroidism. Continue on Synthroid. 8. Anxiety disorder. Continue on Klonopin. 9. Morbid obesity. Aware. The patient is wheelchair bound. 10. Alcohol dependence. We will monitor the patient closely for withdrawal. 11. DVT prophylaxis. Will start the patient on heparin. cc: Shanel Herrera MD MTDD
[2018-12-06] MEDS: DEPAKOTE PO SCH (23:05)
[2018-12-06] MEDS: DUONEB (A & A) INH SCH (23:05)
[2018-12-06] MEDS: HEPARIN SUBQ SCH (23:15)
[2018-12-07] MEDS: DUONEB (A & A) INH SCH ×6 (03:05→23:05)
[2018-12-07] MEDS: LEVOPHED 8 MG in D5 1/2 NS 250 ML IV SCH (03:07)
[2018-12-07 06:01] LABS: ALLEN TEST YES; BE 9.1 mmoll (-3.0-3.0); BLOOD TYPE ARTERIAL; HCO3-(ACT) 32.1 mmoll (20.0-26.0); PO2(98.6) 114 mmHg (60-100); SAMPLE BLOOD; pH(98.6) 7.43 (7.35-7.45)
[2018-12-07 06:07] LABS: MODALITY CANNULA; PCO2(98.6) 53 mmHg (35-45)
[2018-12-07] MEDS ORDERED: WELLBUTRIN XL PO SCH (09:00)
[2018-12-07 09:11] LABS: BASO# 0.03 X1000 (0.0-0.2); BASO% 0.5 % (0.0-0.8); EOS# 0.31 X1000 (0.0-0.7); EOS% 5.3 % (0.0-10.0); HEMATOCRIT 35.6 % (42.0-52.0); HEMOGLOBIN 11.3 g/dL (14.0-18.0); LYMPH# 1.74 X1000 (1.2-3.4); LYMPH% 29.6 % (20.5-51.1); MCH 32.6 PG (27-31); MCHC 31.7 g/dL (33-37); MCV 102.6 FL (81-99); MONO# 1.14 X1000 (0.11-0.59); MONO% 19.4 % (1.7-9.3); MPV 9.3 FL (7.4-10.4); NEUT# 2.65 X1000 (1.4-6.5); NEUT% 45.2 % (42.2-75.2); PLT 149 X1000 (130-400); RBC 3.47 XMIL (4.7-6.1); RDW 15.3 % (11.5-14.5); WBC 5.87 X1000 (4.8-10.8)
[2018-12-07 09:30] LABS: CALCIUM 8.5 mg/dL (8.8-10.2); CREATININE 2.1 mg/dL (0.7-1.2); POTASSIUM 3.9 mmol/L (3.5-5.1)
[2018-12-07] MEDS: NS 1,000 ML IV SCH ×2 (10:02→20:44)
[2018-12-07] MEDS ORDERED: CALMOSEPTINE OINTMENT TOP PRN (10:25)
[2018-12-07 10:31] LABS: HEMOGLOBIN A1C 4.6 % (4.8-6.0)
[2018-12-07] MEDS: HEPARIN SUBQ SCH ×2 (10:43→20:46)
[2018-12-07] MEDS: SYNTHROID PO SCH (10:43)
--- NOTE | 2018-12-07 10:57 | INFECTIOUS DISEASE CONSULT REP ---
DATE: 12/07/2018 CONCLUSION: 1. The patient has bilateral leg cellulitis. 2. The patient on his urinalysis appears to have a urinary tract infection. This appears to be asymptomatic. RECOMMENDATIONS: I have obtained a culture from the patient's leg after removing some of the eschar. I have discontinued Zyvox and Zosyn and instead have put the patient on Ancef in a reduced dose because of the patient's elevated creatinine. As mentioned above, the patient has asymptomatic bacteriuria which does not require antibiotic treatment. DISCUSSION: The patient was unable provide a history. The history came from the patient's . He was admitted to the hospital. He has had an altered mental status and weakness. He can only walk just a few steps. And that is usually with a walker. He has had his leg problem for a long time. The legs are erythematous, and they have scaling skin on them. DIAGNOSTIC STUDIES: Laboratory studies show a CBC with a white count of 5870, hemoglobin 11.3, and platelet count 149,000. Gases show a pH of 7.43, a PO2 of 114, and a pCO2 of 53. The creatinine is 2.1, GFR is 31, alkaline phosphatase is 143. Urinalysis shows white cells and bacteria. Blood and urine cultures are pending. Chest x-ray is clear. CT scan of the head is atrophic. I should also mention that regarding the patient's legs, he has chronic edema of the legs, and I think therefore this predisposes him to develop leg cellulitis. PAST MEDICAL HISTORY/REVIEW OF SYSTEMS: Head, eyes, ears, nose, and throat: Patient wears glasses. He also has decreased hearing. Neck: No pain with movement. Respiratory: No cough or dyspnea. However, the patient rarely moves so is it is difficult to tell if he would have dyspnea if he moved around much. Cardiac: No chest pain or palpitations. Gastrointestinal: The patient does not have nausea and vomiting, but he does have constipation alternating with diarrhea. Most recently, he has had anorexia. Genitourinary: He patient is incontinent of urine. He does not have any complaint of dysuria. He has not had fever or chills. Neurologic: Patient does not have seizures. Over months, the patient has had an altered mental status. Bone, joints, muscles: He has not complained of joint pain or myalgias. Endocrine: Patient has hypothyroidism, but not diabetes. PREVIOUS HOSPITALIZATIONS AND OPERATIONS: He has had a full-mouth extraction of his teeth. He has been admitted for respiratory failure. He has had a right total hip arthroplasty. He has had right and left leg surgeries because of varicose veins. He has had removal of a melanoma. MEDICAL DISEASES: Positive for hypertension, malignant melanoma, COPD, hypothyroidism, and congestive heart failure, atrial fibrillation. INFECTIOUS DISEASE HISTORY: Positive for pneumonia, urinary tract infection, and leg cellulitis. FAMILY HISTORY: Positive for cancer, myocardial infarction, and stroke. SOCIAL HISTORY: [place] He is . He has a dog as a pet. ALLERGIES: He is allergic to Celebrex. HOME MEDICATIONS: Include the following: Albuterol inhaler, bupropion, Coreg, Klonopin, Depakote, Lasix, ipratropium, Synthroid, mirtazapine, Minipress, Aldactone, Spiriva inhaler, Desyrel, and venlafaxine. PHYSICAL EXAMINATION: Vital Signs: Temperature is 98.2 degrees, pulse 71, respirations 20, blood pressure 178/55. Height/weight: Patient is 5 feet 10 inches tall and weighs 300 pounds. General: This is an obese, ill-appearing elderly male. He is in no acute distress. Head, eyes, ears, nose, and throat: He has decreased hearing and vision. He is edentulous. There is no drainage from the nose or ears. Neck: No pain with movement. Lungs: Clear to auscultation. Cardiovascular: Patient has an irregular heart rate. Abdomen: Soft and nontender. Extremities: Both legs are edematous, erythematous, and have scaling skin as well as eschars. Neurologic: Patient is lethargic. He was unable to provide a medical history. The information I obtained was from the patient's . He could move his arms and legs, but it was with great difficulty, and he appears to be very weak. As regard to his memory, he was not able to give me a history. Thank you for the consult cc: Yayo Dinero MD
--- NOTE | 2018-12-07 12:06 | PROVIDER DOCUMENTATION ---
This chart was entered by Candida Man Scribe, acting as scribe for Karthikeyan Craig MD. HPI-General Adult - General Chief Complaint: General Adult Stated Complaint: general weakness Time Seen by Provider: 12/06/18 12:01 Source: patient, family (), EMS (first response) Allergies/Adverse Reactions: Patient Allergies Allergy/AdvReac Type Severity Reaction Status Date / Time celecoxib [From Celebrex] Allergy Severe ANAPHYLAXIS Verified 12/06/18 12:11 Home Medications: Home Medication List Medication Instructions Recorded Confirmed Last Taken Type Bupropion HCl [Wellbutrin Xl] 300 mg PO QAM 07/26/17 12/06/18 12/06/18 History Carvedilol [Coreg] 12.5 mg PO BID 07/26/17 12/06/18 12/06/18 History Divalproex Sodium [Depakote] 2 tab PO QHS 07/26/17 12/06/18 12/05/18 History Mirtazapine 15 mg PO QHS 07/26/17 12/06/18 12/05/18 History Prazosin [Minipress] 1 mg PO QHS 07/26/17 12/06/18 12/05/18 History Trazodone [Desyrel] 50 mg PO QHS 07/26/17 12/06/18 12/05/18 History Venlafaxine HCl [Venlafaxine HCl 3 tab PO QAM 07/26/17 12/06/18 12/06/18 History ER] Arformoterol Neb [Brovana Neb] 15 microgm INH RTQ12H 04/05/18 12/06/18 Unknown History Budesonide 0.5 mg IH BID 04/05/18 12/06/18 12/06/18 History Furosemide [Lasix] 80 mg PO DAILY 04/05/18 12/06/18 12/06/17 History Furosemide [Lasix] 100 mg PO HS 04/05/18 12/06/18 12/05/18 History Ipratropium/Albuterol Sulfate 3 ml IH Q4HR 04/05/18 12/06/18 12/06/18 History [Iprat-Albut 0.5-3(2.5) mg/3 ml] Levothyroxine [Synthroid] 100 microgm PO DAILY 04/05/18 12/06/18 12/06/18 History Mv-Mn/FA/Lycopene/Lut/Hb#178 [Dayron 1 each PO DAILY 04/05/18 12/06/18 12/06/18 History Multi For Men Tablet] Potassium Chloride E.r. [Klor-Con] 60 meq PO DAILY 04/05/18 12/06/18 12/06/18 History Tiotropium [place] Inhaler 1 dose INH DAILY 04/05/18 12/06/18 12/06/18 History [Spiriva] Hydrocodone/Acetaminophen [[place] 1 each PO Q12H PRN PRN #0 04/07/18 12/06/18 Unknown Rx 10-325 Tablet] Spironolactone [Aldactone] 25 mg PO DAILY #30 tab 04/07/18 12/06/18 12/06/18 Rx Albuterol 2.5MG/Ipratrop 0.5MG 3 ml INH RTQ6H PRN 12/06/18 12/06/18 Unknown History [Duoneb (A & A)] Clonazepam [Klonopin] 2 mg PO BID PRN PRN 12/06/18 12/06/18 12/06/18 History Formoterol Neb [Perforomist Neb] 20 microgm INH BID 12/06/18 12/06/18 12/06/18 History - History of Present Illness -Gen Adult Nature of Presenting Problems: 68 yowm presents to theed with c/o weakness, decreased appetite. pt had his teeth pulled on sep 19, 2018 and has been in a steady decline since per Location of Pain/Injury: reports: generalized (weakness) Quality of Pain: reports: other (weakness) Severity: reports: moderate Onset/Duration: reports: other (sep 19 2018) Timing: reports: still present, constant, getting worse Context/Activities at Onset: reports: other (recent sx) Modifying Factors: improves with: nothing Associated Symptoms: reports: cough, dizziness, fatigue, malaise, muscle aches, nausea, shortness of breath, weakness, trouble walking. denies: back/neck pain, chest pain, fever/chills, syncope Similar Symptoms Previously?: Yes Recently seen or treated by another doctor?: Yes (has seen pcp) Review of Systems - Adult - REVIEW OF SYSTEMS - ADULT ROS:: ROS per family () Constitutional: reports: see HPI, chills, fatique, weight loss. denies: fever Eyes: reports: no symptoms reported Ears, Nose, Mouth & Throat: reports: no symptoms reported Cardiovascular: reports: edema. denies: chest pain, palpitations, syncope Respiratory: reports: chronic cough, shortness of breath. denies: wheezing Gastrointestinal: reports: poor appetite. denies: abdominal pain, diarrhea, nausea, rectal bleeding Genitourinary: reports: no symptoms reported Musculoskeletal: reports: see HPI, muscle aches, muscle weakness. denies: bone pain, neck pain Integumentary: reports: no symptoms reported Neurological: reports: no symptoms reported Psychiatric: reports: no symptoms reported Endocrine: reports: no symptoms reported Hematologic/Lymphatic: reports: see HPI, easy bruising, low blood count Allergic/Immunologic: reports: no symptoms reported All Other Systems: Reviewed and Negative Past History - Adult - PAST MEDICAL HISTORY-ADULT Review of Records: reports: Old Records Reviewed, Nursing Assessment Review, Medications Reviewed, Social history reviewed & non-contributory. Major Childhood Illnesses: reports: denies history Cardiovascular: reports: CHF, HTN, hyperlipidemia Respiratory: reports: COPD, sleep apnea Gastrointestinal: reports: denies history Genitourinary: reports: denies history Musculoskeletal: reports: arthritis, chronic pain Hand Dominance: Right Handed Neurological: reports: denies history Psychiatric: reports: depression Endocrine/Immune: reports: anemia Other Conditions: reports: other cancer (melanoma), cataract/glaucoma - PRIOR SURGERIES/PROCEDURES Surgical/Procedure History: reports: appendectomy, tonsillectomy, joint replacement (total hip), other (venous reflux) - PRIOR HOSPITALIZATIONS Prior Hospitalizations: reports: for other non-related - IMMUNIZATION STATUS Childhood Immunizations: See Nurse Assessment Flu Vaccine: See Nurse Assessment - FAMILY HISTORY Family History: reviewed, not pertinent - SOCIAL HISTORY Smoking: denies Substance Use: denies Living Situation: family Physical Exam-General - PHYSICAL EXAM-ADULT Initial Vital Signs Reviewed: Yes - CONSTITUTIONAL General Appearance: alert, mild distress, obese. negative: appears well - EYES Eyes: PERRL/EOMI, pale conjunctivae - HEAD, EARS, NOSE, MOUTH & THROAT HENMT: other (no teeth). negative: moist mucous membranes (dry) - NECK Neck: normal inspection - RESPIRATORY Respiratory: chest non-tender, lungs clear, normal breath sounds - CARDIOVASCULAR Cardiovascular: normal peripheral pulses, regular rate, rhythm - GASTROINTESTINAL (ABDOMEN) Abdominal Exam: normal bowel sounds, non tender, soft - MUSCULOSKELETAL Back Exam: normal inspection, no CVA tenderness, no vertebral tenderness Extremity: normal capillary refill, pelvis stable, erythema (BLE), other (BLE skin changes with sores) - SKIN Integumentary: warm/dry, erythema (BLE), pallor, swelling (BLE) - PSYCHIATRIC Psych/Mental Status: normal mood/affect. negative: oriented x 3 (mild confusion) Progress - PLAN OF CARE/RESULTS Progress/Plan/Lab Results: Vital Signs - 8 hr 12/06/18 11:41 12/06/18 11:43 12/06/18 11:51 Temperature 97.9 F Pulse Rate 67 68 Respiratory Rate 19 11 L Blood Pressure 101/58 O2 Sat by Pulse Oximetry 100 99 12/06/18 11:54 12/06/18 11:55 12/06/18 12:00 Temperature 97.9 F Pulse Rate 59 L 62 62 Respiratory Rate 13 19 18 Blood Pressure 101/58 101/58 O2 Sat by Pulse Oximetry 100 100 100 12/06/18 12:03 12/06/18 12:10 Temperature Pulse Rate 61 61 Respiratory Rate 13 16 Blood Pressure 88/54 O2 Sat by Pulse Oximetry 100 100 Orders Category Date Time Status CBC WITH ELECTRONIC DIFF [HEME] Stat Lab 12/06/18 12:08 Uncollected COMPREHENSIVE METABOLIC PANEL [CHEM] Stat Lab 12/06/18 12:08 Uncollected URINALYSIS [URINALYSIS] Stat Lab 12/06/18 12:08 Uncollected EKG [EKG] Stat Ther 12/06/18 12:08 Ordered Result Diagrams: 12/06/18 12:25 12/06/18 12:25 - REASSESSMENT Reassessment #1 Time Reassessed: 13:08 Status: unchanged Reassessment Comment: at bedside - EKG 1 Time of EKG reading by physician:: 13:38 EKG Read and Signed by:: Karthikeyan Craig EKG Interpretation (*Must complete 3 of following elements*): Abnormal Rate: 61 Rhythm: sinus rhythm with sinus arrhythmia w/ 1st degree av block [place]: normal QRS: normal [place] Interval: normal Prior EKG Comparison: no prior EKG Comments: nonspecific ST and T wave abnormality - XRAY 1 XRAY: Bilateral XRAY Study: Chest Impression: See EMR Report (EXAM: CHEST-1 VIEW INDICATION: sob TECHNIQUE: One view COMPARISON: 08/01/2018 FINDINGS: The lungs are grossly clear. There is no discrete pleural fluid collection or pneumothorax. The cardiomediastinal silhouette and central vasculature are grossly unremarkable. IMPRESSION: No e vidence of acute pathology by plain radiograph. Electronically signed by Chapo Shore 12/06/2018 12:46 PM 12/06/18 1246 Interpreting Physician: Chapo Shore MD Dictated Date/Time: 12/06/18 1246 cc: Karthikeyan Craig MD; Salima Madrigal MD) - CONSULTS/PCP/HOSPITALIST Notification #1 *Consult/PCP/Hospitalist*: [email or web address] Time Discussed: 16:33 Consult Disposition: Admit Departure - Departure Date of Disposition Decision: 12/06/18 Time of Disposition Decision: 16:31 DIAGNOSIS: COPD exacerbation, Generalized weakness, Renal insufficiency UTI (urinary tract infection) Qualifiers: Urinary tract infection type: site unspecified Hematuria presence: without hematuria Qualified Code(s): N39.0 - Urinary tract infection, site not specified Disposition: ADMITTED INPATIENT 09 Certified Medical Emergency: Emergent Condition: Stable Additional Freetext Instructions: ED Follow Up Instructions: You have been treated by a care provider in the Emergency Department. These instructions are being provided to you so you can have an understanding of how to care for yourself upon discharge. Upon discharge from the Emergency Department, you are responsible for making arrangements for follow-up care by a physician of your choice. Take all prescribed medications as directed. Return to the Emergency Department immediately for any new or worsening symptoms. You may call the Physician Referral phone number at [phone] to obtain a list of Physicians who are taking new patients. Referrals and Follow-Ups: Salima Madrigal MD [Primary Care Provider] - - Critical Care Note This patient required my direct & personal management of CC.: Yes Total Time (mins): 39 Critical Care Statement: This patient required my direct personal management to treat or rule out processes, the absence of which, could potentiallly result in sudden, clinically significant life or limb threatening deterioration. Attestation - Physician/ CRESENCIO Attestation Patient care was provided by Advanced Practice Provider:: No The physician spent face to face time with patient:: Yes Advanced Practice Provider documentation review:: Supervising physician onsite and consulted in the evaluation and care of this patient. The physician did have a face to face encounter with the patient. This chart was documented by the indicated scribe, (Candida Man Scribe) and accurately reflects the services I performed and decisions made by me, Karthikeyan Matta MD, as attested by the provider's signature.
--- NOTE | 2018-12-07 13:37 | ECHO REPORT ---
ORDER DATE: 12/07/2018 INDICATIONS: CHF, COPD, morbid obesity. FINDINGS: 1. Right atrium is mildly enlarged at 4.4 cm. 2. Mild tricuspid regurgitation with RV systolic pressure of 47. 3. Normal RV size and systolic function. 4. No significant pulmonic insufficiency. 5. Normal left atrial size with a dimension of 3.6 cm and a volume index of 17. 6. No mitral valve prolapse. Mild mitral regurgitation. No mitral stenosis. 7. The left ventricle appears to be normal in size with a dimension of 5.3 cm. Normal wall thicknesses with a posterior and interventricular septal wall thickness of 1.0 and 1.1 cm, respectively. The LV systolic function appears normal with an estimated ejection fraction of 55%. Definity echo contrast was used for assessment of LV function. There is no clear evidence of segmental wall motion abnormalities. 8. Aortic valve appears to open well. There is mild, possibly moderate aortic insufficiency. It appears mild to moderate by Doppler. Pressure half time would suggest mild with a pressure half-time of 848 msec. 9. The aorta appears normal in visualized segments. 10. There is no pericardial effusion identified. 11. The IVC is normal in diameter at 1.8 cm. Collapse was not assessed for. cc: MD Shanel Garcia MD
[2018-12-07] MEDS ORDERED: LIDODERM TOP ONE (15:06)
[2018-12-07] MEDS: KEFZOL 1 GM/D5W 1 GM/50 ML IVPB IV SCH ×2 (15:37→23:59)
--- NOTE | 2018-12-07 15:50 | EKG Report ---
Test Performed on : 12/06/2018 1:38:16 PM Test Reason : weakness Blood Pressure : / mmHG Vent. Rate : 061 BPM Atrial Rate : 061 BPM P-R Int : 248 ms QRS Dur : 104 ms QT Int : 440 ms P-R-T Axes : 066 011 051 degrees QTc Int : 442 ms Sinus rhythm. with sinus arrhythmia. with 1st degree AV block. Nonspecific ST and T wave abnormality Abnormal ECG When compared with ECG of 06-DEC-2018 13:36, (Unconfirmed) No significant change was found Unconfirmed Result
--- NOTE | 2018-12-07 16:01 | PROGRESS NOTE ---
DATE: 12/07/2018 SUBJECTIVE: The patient is resting comfortably in bed. He does have some mild confusion this morning. OBJECTIVE: Vital Signs: Temperature 97.4 degrees, blood pressure 123/76, heart rate 67, respirations 21, and O2 saturations 100% on 5 L nasal cannula. General: This is a chronically ill-appearing elderly male lying in bed in no acute distress. HEENT: Head normocephalic and atraumatic. Heart: S1, S2 normal. Regular rate and rhythm. Lungs: Clear to auscultation bilaterally. No wheezing. No rales. No rhonchi. Abdomen: Positive bowel sounds. Soft, nontender, and nondistended. Extremities: The patient has bilateral lower extremity erythema with stasis dermatitis and lymphedema. Neurologic: The patient is alert and oriented to person and place. He is able to move all 4 extremities. LABORATORY: White blood cell count 5.8, hemoglobin 11, hematocrit 35, and platelets 149,000. Sodium 138, potassium 3.9, chloride 94, CO2 29, BUN 23, creatinine 2.1, glucose 83, and calcium 8.5. ASSESSMENT AND PLAN: 1. Bilateral lower extremity cellulitis with stasis dermatitis. Continue with antibiotic management as directed by Dr. Dinero. 2. Hypotension. The patient's echocardiogram was reviewed. We will attempt to wean the patient off of the Levophed. 3. Morbid obesity. Aware. 4. Alcohol dependence. Aware. 5. Hypothyroidism. Continue on Synthroid. 6. Macrocytic anemia. We will check iron studies. 7. Acute kidney injury on chronic kidney disease. Improved. Continue with gentle IV fluid hydration. We will avoid nephrotoxic agents. 8. Urinary tract infection. The urine culture is currently pending. Continue with antibiotic therapy. 9. Anxiety disorder. Continue on Klonopin. 10. Deep vein thrombosis prophylaxis. Continue on heparin. cc: MD BABATUNDE Munson
[2018-12-07] MEDS: MINIPRESS PO SCH (20:09)
[2018-12-07] MEDS: DEPAKOTE PO SCH (20:46)
[2018-12-07] MEDS: HYDROPHOR OINTMENT TOP SCH (21:36)
[2018-12-08] MEDS: DUONEB (A & A) INH SCH ×6 (03:10→23:25)
[2018-12-08 05:45] LABS: ALLEN TEST YES; BE 5.5 mmoll (-3.0-3.0); BLOOD TYPE ARTERIAL; HCO3-(ACT) 29.2 mmoll (20.0-26.0); METHB 1.4 % (0.0-1.5); O2HB 96.6 % (95.0-99.0); PCO2(98.6) 49 mmHg (35-45); PO2(98.6) 125 mmHg (60-100); SAMPLE BLOOD; SRATE 15 BPM; THB 10.9 g/dL (11.5-17.4); pH(98.6) 7.41 (7.35-7.45)
[2018-12-08 05:47] LABS: MODALITY BI PAP
[2018-12-08] MEDS: SYNTHROID PO SCH (06:24)
[2018-12-08] MEDS: KEFZOL 1 GM/D5W 1 GM/50 ML IVPB IV SCH ×3 (06:24→23:48)
--- NOTE | 2018-12-08 06:51 | Diag Imaging Result Doc PS360 ---
EXAM: CHEST-PORTABLE HISTORY: dyspnea TECHNIQUE: Portable chest single view COMPARISON: 12/06/2018 FINDINGS: The lungs are well expanded. The heart is not enlarged. The vessels are not distended. Mild increased markings in the lung bases. No effusion identified. IMPRESSION: Likely atelectasis or fibrosis in the lung bases. Electronically signed by Dhaval Castro 12/08/2018 6:48 AM
[2018-12-08] MEDS: LEVOPHED 8 MG in D5 1/2 NS 250 ML IV SCH (07:58)
[2018-12-08] MEDS: HYDROPHOR OINTMENT TOP SCH ×4 (08:00→20:25)
[2018-12-08] MEDS: HEPARIN SUBQ SCH ×2 (08:00→20:24)
[2018-12-08] MEDS: SPIRIVA INH SCH ×2 (08:00→08:02)
[2018-12-08 08:05] LABS: HEMATOCRIT 33.4 % (42.0-52.0); HEMOGLOBIN 10.5 g/dL (14.0-18.0); MCH 32.6 PG (27-31); MCHC 31.4 g/dL (33-37); MCV 103.7 FL (81-99); MPV 9.1 FL (7.4-10.4); RBC 3.22 XMIL (4.7-6.1); RDW 15.1 % (11.5-14.5); WBC 5.73 X1000 (4.8-10.8)
[2018-12-08] MEDS: NS 1,000 ML IV SCH ×2 (09:36→23:48)
[2018-12-08 09:53] LABS: ALB/GLOB RATIO 0.7; ALBUMIN 2.6 g/dL (3.5-5.0); CALCIUM 8.6 mg/dL (8.8-10.2); CREATININE 1.7 mg/dL (0.7-1.2); POTASSIUM 3.7 mmol/L (3.5-5.1); TOTAL BILIRUBIN 0.44 mg/dL (0.20-1.00); TOTAL PROTEIN 6.1 g/dL (6.3-8.3)
--- NOTE | 2018-12-08 10:25 | PROGRESS NOTE ---
DATE: 12/08/2018 SUBJECTIVE: The patient is awake. He does have periods of confusion. He is currently on Levophed drip at 2 mcg per hour. OBJECTIVE: Vital Signs: Temperature 97 degrees, blood pressure 93/56, heart rate 73, respirations 18, and O2 saturation 93% on 2 L nasal cannula. Urine output 400. General: This is a morbidly obese male lying in bed in no acute distress. HEENT: Head normocephalic atraumatic. Heart: S1, S2 normal. Regular rate and rhythm. Lungs: Clear to auscultation bilaterally. No wheezing. No rales. No rhonchi. Abdomen: Positive bowel sounds. Soft, nontender, nondistended. Extremities: The patient has extensive erythema involving both lower extremities with lymphedema and stasis dermatitis. Neurologic: The patient is alert and oriented x3. LABORATORY: White blood cell count 5.7, hemoglobin 10, hematocrit 33, and platelets 155,000. Sodium 141, potassium 3.7, chloride 98, CO2 29, BUN 19, creatinine 1.7, and glucose 96. Chest x-ray shows fibrosis in the lung bases. ASSESSMENT AND PLAN: 1. Bilateral lower extremity cellulitis with stasis dermatitis. Continue with antibiotic therapy. 2. Hypotension. The patient is on a low dose of Levophed, which we will attempt to wean off. 3. Chronic hypoxemic and hypercapnic respiratory failure. Stable. 4. Hypothyroidism. Continue on Synthroid. 5. Alcohol dependence. Aware. 6. Acute kidney injury on chronic kidney disease. Improved. 7. Urinary tract infection. The culture is growing gram-positive cocci. Continue with the current antibiotic regimen. 8. Anxiety disorder. Continue on Klonopin. 9. Deep vein thrombosis prophylaxis. Continue on heparin. cc: Shanel Herrera MD [facility]
--- NOTE | 2018-12-08 14:06 | INFECTIOUS DISEASE PROGRESS NO ---
DATE: 12/08/2018 PRESENT ILLNESS: The patient has bilateral leg cellulitis. The patient also appears to have asymptomatic bacteriuria. MEDICATIONS: The patient is on Ancef with the dose reduced to 1 g IV every 8 hours because of the patient's renal insufficiency. The patient also may have urinary tract infection. However, it is asymptomatic and does not require treatment. PHYSICAL EXAMINATION: Vital Signs: Temperature is 97.8 degrees, pulse 74, respirations 15, blood pressure 98/60. General: This is an obese, elderly male. He is at no acute distress. Head eyes, ears, nose and throat: He can hear my spoken words and see near objects. He does not have any white patches on his tongue. Neck: No pain with movement of his head. Lungs: Clear to auscultation. Cardiovascular: Patient's heart rate is irregular. Abdomen: Soft and not tender. Extremities: The patient does have bilateral leg erythema with some eschars present. Most of the open wounds have dried up. LAB AND X-RAY: Chest x-ray shows bibasilar atelectasis/fibrosis. Leg wound cultures pending. Urine cultures growing gram-positive cocci. Blood cultures are negative. Blood gases show a pH of 7.41, a PO2 of 125, and a pCO2 of 49. CBC shows a white count of 5730, hemoglobin 10.5, and platelet count 155,000. ASSESSMENT AND PLAN: Patient has leg cellulitis. I plan to continue the patient's Ancef. I have asked the nurse to be sure and keep the patient's foot of the bed elevated. As regarding the patient's urinary tract infection with gram-positive cocci, this is asymptomatic and because of that no treatment is necessary. COMORBIDITIES: He is elderly, he has COPD. He has congestive heart failure as well as obesity and bilateral leg edema. cc: Yayo Dinero MD [facility]
[2018-12-08] MEDS: NORCO-10 PO PRN (16:38)
[2018-12-08] MEDS: DEPAKOTE PO SCH (20:24)
[2018-12-09] MEDS: DUONEB (A & A) INH SCH ×6 (03:41→23:12)
[2018-12-09 04:48] LABS: ALLEN TEST YES; BE 4.8 mmoll (-3.0-3.0); BLOOD TYPE ARTERIAL; HCO3-(ACT) 28.7 mmoll (20.0-26.0); METHB 1.4 % (0.0-1.5); O2(CT) 15.2 mL/dL (15.0-23.0); O2HB 96.8 % (95.0-99.0); PCO2(98.6) 36 mmHg (35-45); PO2(98.6) 176 mmHg (60-100); SAMPLE BLOOD; SAO2 99.8 % (95.0-100.0); THB 10.9 g/dL (11.5-17.4)
[2018-12-09 04:49] LABS: MODALITY BI PAP
[2018-12-09] MEDS: LEVOPHED 8 MG in D5 1/2 NS 250 ML IV SCH (06:00)
[2018-12-09] MEDS: KEFZOL 1 GM/D5W 1 GM/50 ML IVPB IV SCH ×3 (06:00→22:18)
[2018-12-09] MEDS: SYNTHROID PO SCH (06:01)
[2018-12-09] MEDS: HEPARIN SUBQ SCH ×2 (08:00→20:07)
[2018-12-09] MEDS: HYDROPHOR OINTMENT TOP SCH ×4 (08:00→20:07)
[2018-12-09] MEDS: SPIRIVA INH SCH (08:20)
[2018-12-09] MEDS: NS 1,000 ML IV SCH (12:14)
[2018-12-09] MEDS: KLONOPIN PO PRN (12:54)
--- NOTE | 2018-12-09 18:35 | PROGRESS NOTE ---
DATE: 12/09/2018 SUBJECTIVE: The patient is more awake and alert today. He has no complaints. The patient is on 1 mcg of Levophed. OBJECTIVE: Vital Signs: Temperature 98.6 degrees, blood pressure 114/75, heart rate 77, respiratory rate 19, O2 saturation 96% on 2 L nasal cannula, urine output 525. General: This is a morbidly obese male lying in bed in no acute distress. Heart: S1, S2 normal. Regular rate and rhythm. Lungs: Clear to auscultation bilaterally. No wheezing, no rales, no rhonchi. Abdomen: Positive bowel sounds. Soft, nontender, nondistended. Extremities: The patient has erythema involving both legs with lymphedema and 1 to 2+ edema. Neurologic: The patient is alert and oriented x3. LABS: Pending. ASSESSMENT AND PLAN: 1. Bilateral lower extremity cellulitis with stasis dermatitis. The wound culture is growing methicillin sensitive Staphylococcus aureus. Continue with antibiotic therapy. 2. Hypotension. Will wean off the Levophed drip. 3. Chronic hypoxemic and hypercapnic respiratory failure. Stable. Continue with BiPAP at night. 4. Hypothyroidism. Continue on Synthroid. 5. Urinary tract infection secondary to Enterococcus. Continue with antibiotic therapy. 6. Anxiety disorder. Continue on Klonopin. 7. Morbid obesity. Aware. 8. Deep vein thrombosis prophylaxis. Continue on heparin. cc: Shanel Herrera MD [facility]TD[facility]
[2018-12-09] MEDS: DEPAKOTE PO SCH (20:07)
[2018-12-10] MEDS: DUONEB (A & A) INH SCH ×6 (03:31→23:02)
[2018-12-10] MEDS: KEFZOL 1 GM/D5W 1 GM/50 ML IVPB IV SCH ×4 (05:17→21:07)
[2018-12-10] MEDS: SYNTHROID PO SCH ×2 (06:00→06:43)
[2018-12-10 06:24] LABS: HEMATOCRIT 31.4 % (42.0-52.0); MCH 32.7 PG (27-31); MCHC 31.8 g/dL (33-37); MCV 102.6 FL (81-99); MPV 9.1 FL (7.4-10.4); RBC 3.06 XMIL (4.7-6.1); RDW 15.6 % (11.5-14.5); WBC 6.67 X1000 (4.8-10.8)
[2018-12-10 06:24] LABS: ALLEN TEST YES; BE 5.3 mmoll (-3.0-3.0); BLOOD TYPE ARTERIAL; O2(CT) 13.5 mL/dL (15.0-23.0); O2HB 93.9 % (95.0-99.0); PCO2(98.6) 43 mmHg (35-45); PO2(98.6) 64 mmHg (60-100); SAMPLE BLOOD; SAO2 96.8 % (95.0-100.0); THB 10.2 g/dL (11.5-17.4); pH(98.6) 7.45 (7.35-7.45)
[2018-12-10 06:25] LABS: MODALITY CANNULA
[2018-12-10 06:38] LABS: ALB/GLOB RATIO 0.7; ALBUMIN 2.3 g/dL (3.5-5.0); CALCIUM 8.3 mg/dL (8.8-10.2); CREATININE 1.3 mg/dL (0.7-1.2); POTASSIUM 3.7 mmol/L (3.5-5.1); TOTAL BILIRUBIN 0.4 mg/dL (0.20-1.00); TOTAL PROTEIN 5.6 g/dL (6.3-8.3)
[2018-12-10] MEDS: KLONOPIN PO PRN (06:46)
[2018-12-10] MEDS: SPIRIVA INH SCH (07:26)
[2018-12-10] MEDS: HYDROPHOR OINTMENT TOP SCH ×3 (08:15→21:07)
[2018-12-10] MEDS: HEPARIN SUBQ SCH ×2 (08:15→21:07)
--- NOTE | 2018-12-10 14:52 | PROGRESS NOTE ---
DATE: 12/10/2018 The patient is resting comfortably in bed. He complains of tremor whenever he tries to use his hands. OBJECTIVE: Vital Signs: Temperature 98.7 degrees, blood pressure 141/64, heart rate 81, respirations 19, O2 saturation 95 % on 2 L nasal cannula, urine output 685. General: This is a morbidly obese male lying in bed in no acute distress. Heart: S1, S2 normal. Regular rate and rhythm. Lungs: Clear to auscultation bilaterally. Abdomen: Positive bowel sounds, soft, nontender, nondistended. Extremities: Lymphedema with erythema to the lower extremities. Neuro: The patient is alert and oriented. LABS: White blood cell count 6.6, hemoglobin 10, hematocrit 31, platelets 156,000, sodium 147, potassium 3.7, BUN 11, creatinine 1.3. ASSESSMENT AND PLAN: 1. Bilateral lower extremity cellulitis with stasis dermatitis. Continue with antibiotic therapy as directed by Dr. Dinero. 2. Chronic hypoxemic and hypercapnic respiratory failure. Stable. Continue with BiPAP at night. 3. Hypothyroidism. Continue on Synthroid. 4. Anxiety disorder. Continue on Klonopin. 5. Urinary tract infection secondary to Enterococcus. Continue with antibiotic therapy. 6. Morbid obesity. Aware. 7. Deep vein thrombosis prophylaxis. Continue on heparin. 8. Disposition. The patient is stable for transfer to the medical floor. cc: Shanel Herrera MD MTDD
[2018-12-10] MEDS: DEPAKOTE PO SCH (21:07)
[2018-12-10] MEDS: NORCO-10 PO PRN (21:44)
[2018-12-11] MEDS: DUONEB (A & A) INH SCH ×6 (04:05→23:00)
[2018-12-11] MEDS: KEFZOL 1 GM/D5W 1 GM/50 ML IVPB IV SCH ×3 (06:07→22:22)
[2018-12-11] MEDS: SYNTHROID PO SCH (06:07)
[2018-12-11] MEDS: SPIRIVA INH SCH (07:25)
[2018-12-11 07:32] LABS: HEMOGLOBIN 10.6 g/dL (14.0-18.0); MCH 32.9 PG (27-31); MCHC 31.2 g/dL (33-37); MCV 105.6 FL (81-99); MPV 9.1 FL (7.4-10.4); RBC 3.22 XMIL (4.7-6.1); WBC 5.82 X1000 (4.8-10.8)
[2018-12-11 07:50] LABS: CALCIUM 8.3 mg/dL (8.8-10.2); CREATININE 1.3 mg/dL (0.7-1.2); POTASSIUM 3.4 mmol/L (3.5-5.1)
[2018-12-11] MEDS: HYDROPHOR OINTMENT TOP SCH ×4 (08:17→17:50)
[2018-12-11] MEDS: HEPARIN SUBQ SCH ×2 (08:17→22:25)
[2018-12-11] MEDS: NORCO-10 PO PRN (10:52)
--- NOTE | 2018-12-11 15:16 | PROGRESS NOTE ---
DATE: 12/11/2018 SUBJECTIVE: The patient is resting comfortably. He states that his legs feel better today. OBJECTIVE: Vital Signs: Temperature 98.6 degrees, blood pressure 121/66, heart rate 82, respirations 15, O2 saturation is 98% on 3 L nasal cannula. General: This is a morbidly obese male lying in bed, in no acute distress. Heart: S1, S2 normal. Regular rate and rhythm. Lungs: Equal air entry bilaterally. No crackles. No rales. Abdomen: Positive bowel sounds. Soft, nontender, nondistended. Extremities: The patient has +1 edema with extensive erythema on the lower extremities. Labs: White blood cell count 5.8, hemoglobin 10, hematocrit 34, platelets 172,000. Sodium 142, potassium 3.4, chloride 103, CO2 28, BUN 9, creatinine 1.3, glucose 94. ASSESSMENT AND PLAN: 1. Bilateral lower extremity cellulitis. Continue with antibiotic therapy as directed by . 2. Chronic hypoxemic and hypercapnic respiratory failure. Stable. Continue with BiPAP at night. 3. Anxiety disorder. Continue on Klonopin. 4. Hypothyroidism. Continue on Synthroid. 5. Urinary tract infection secondary to Enterococcus. Continue on the current antibiotic regimen. 6. Morbid obesity. Aware. 7. Deep vein thrombosis prophylaxis. Continue on heparin. 8. Disposition. We will consult physical therapy. cc: Shanel Herrera MD MTDD
[2018-12-11] MEDS ORDERED: TEARISOL OPH SOLUTION BOTH EYES PRN (17:40)
[2018-12-11] MEDS ORDERED: LASIX PO ONE (18:09)
--- NOTE | 2018-12-11 18:35 | INFECTIOUS DISEASE PROGRESS NO ---
DATE: 12/11/2018 PRESENT ILLNESS: Mr. Cortes has oxacillin sensitive Staph aureus cellulitis with stasis dermatitis to bilateral lower extremities. He also has an Enterobacter urinary tract infection, which is asymptomatic and does not require treatment at this point. MEDICATIONS: He is receiving Kefzol 1 g IV every 8 hours as a renally modified dose due to acute kidney injury. PHYSICAL EXAMINATION: Vital Signs: Temperature is 97.9, pulse rate 62, respiratory rate 16, blood pressure 120/53, O2 saturation is 100% on 5 L nasal cannula. General: This is a chronically ill appearing, elderly, obese gentleman. He is lying in the bed, currently in no acute distress. HEENT: Atraumatic, normocephalic. Oral mucous membranes are pink and moist. Conjunctivae are pale. Neck: Supple. Trachea is midline. Cardiovascular: Heart rate is irregular with a sinus arrhythmia on the monitor and frequent PACs noted. Respiratory: Lung sounds are clear in the upper lobes. Diminished in the bases. Abdomen: Soft, round, obese and nontender. Bowel sounds are active. Extremities: There is bilateral lower extremity 1+ pretibial edema with erythema noted to calves bilaterally, right greater than left. There are also dry eschars and moist tissue noted to the calves as well. LABORATORY AND X-RAY: Today, his white count is 5.82, hemoglobin 10.6, platelet count 172,000. Creatinine is 1.3. GFR is 55. He has grown an oxacillin-sensitive Staph aureus to the left lower extremity. No imaging reports today. ASSESSMENT AND PLAN: Mr. Cortes has bilateral lower extremity cellulitis with stasis dermatitis. He is receiving Kefzol 1 g IV every 8 hours as renally modified dose. It is very difficult to get an IV site on him with one IV noted in his thumb. We will go ahead and order a PICC line to be inserted on him in the morning. His states his legs may be a little bit better at this point. His acute kidney injury seems to be improving. As his GFR elevates, we might be able to increase his dose of Kefzol. His is concerned that he is not urinating much. We will order a bladder scan. These plans have been discussed with and recommended by Dr. Dinero. COMORBIDITIES: For Mr. Cortes include that he is elderly and wheelchair-bound with congestive heart failure, chronic obstructive pulmonary disease, obesity, and bilateral lower extremity edema. Dictated by NATTY Luna for Yayo Dinero MD This chart was documented by, NATTY Luna and accurately reflects the services performed, treatment plan and medical decisions as attested by the providers signature Yayo Dinero MD. cc: Yayo Dinero MD [facility]
[2018-12-11] MEDS: DEPAKOTE PO SCH (22:24)
[2018-12-12] MEDS: DUONEB (A & A) INH SCH ×6 (03:37→23:30)
[2018-12-12] MEDS: KEFZOL 1 GM/D5W 1 GM/50 ML IVPB IV SCH ×3 (04:16→21:23)
[2018-12-12] MEDS: SYNTHROID PO SCH (06:27)
[2018-12-12 07:16] LABS: INR 1.08; PROTIME 14.9 Seconds (11.0-16.0)
[2018-12-12] MEDS: SPIRIVA INH SCH (07:19)
[2018-12-12 07:20] LABS: HEMATOCRIT 35.2 % (42.0-52.0); HEMOGLOBIN 11.1 g/dL (14.0-18.0); MCH 33.2 PG (27-31); MCHC 31.5 g/dL (33-37); MCV 105.4 FL (81-99); MPV 8.7 FL (7.4-10.4); RBC 3.34 XMIL (4.7-6.1); RDW 15.9 % (11.5-14.5); WBC 7.04 X1000 (4.8-10.8)
[2018-12-12 07:34] LABS: CALCIUM 8.8 mg/dL (8.8-10.2); CREATININE 1.2 mg/dL (0.7-1.2); POTASSIUM 3.5 mmol/L (3.5-5.1)
[2018-12-12] MEDS ORDERED: NS 250 ML ONE (08:55)
[2018-12-12] MEDS: LASIX PO SCH (10:14)
[2018-12-12] MEDS: HYDROPHOR OINTMENT TOP SCH ×5 (10:14→23:33)
[2018-12-12] MEDS: HEPARIN SUBQ SCH ×2 (10:14→21:23)
[2018-12-12] MEDS: KLONOPIN PO PRN (10:23)
--- NOTE | 2018-12-12 17:38 | PROGRESS NOTE ---
DATE: 12/12/2018 SUBJECTIVE: Patient resting in bed. OBJECTIVE: Vital signs: Temperature 98.1 degrees, pulse is 73, respiratory rate is 16, blood pressure is 116/61, oxygen saturation is 100%. HEENT: Atraumatic, normocephalic. Cardiovascular System: S1, S2. Respiratory system has evidence of good air entry bilaterally. Abdomen is soft, nontender. No masses felt. Extremities have erythema which is significant in both lower extremities. Central nervous system: No obvious focal deficits noted. LABORATORY DATA: WBC 7.0, hematocrit 35.2, platelet count of 165,000. Sodium 140, potassium 3.5, chloride 104, bicarbonate 28, BUN 7, creatinine 0.2. ASSESSMENT AND PLAN: 1. Bilateral lower extremity cellulitis. Continue antibiotics as recommended by Infectious Disease. 2. Urinary tract infection secondary to Enterococcus. Continue antibiotics as recommended by Infectious Disease. 3. Chronic hypoxemia with hypercapnic respiratory failure. Stable. Continue BiPAP at night. 4. Anxiety disorder. Continue anxiolytic. 5. Hypothyroidism. Continue levothyroxine. 6. Morbid obesity. Aware. 7. Deep vein thrombosis prophylaxis. Heparin. DISPOSITION: The patient will probably be going home with home health services. However, he will need to be in the hospital for the next couple of days for IV antibiotic treatment. cc: Ahmet Vallejo MD
[2018-12-12] MEDS: DEPAKOTE PO SCH (21:23)
[2018-12-12] MEDS: DESYREL PO SCH (21:40)
[2018-12-12] MEDS: NORCO-10 PO PRN (21:40)
[2018-12-12] MEDS: REMERON PO SCH (21:41)
[2018-12-13] MEDS: KEFZOL 1 GM/D5W 1 GM/50 ML IVPB IV SCH ×2 (04:12→14:30)
[2018-12-13] MEDS: DUONEB (A & A) INH SCH ×6 (06:20→23:22)
[2018-12-13] MEDS: SYNTHROID PO SCH (06:40)
[2018-12-13] MEDS: SPIRIVA INH SCH (07:42)
[2018-12-13] MEDS: HEPARIN SUBQ SCH ×2 (10:15→21:58)
[2018-12-13] MEDS: LASIX PO SCH (10:15)
[2018-12-13] MEDS: WELLBUTRIN XL PO SCH (10:15)
[2018-12-13] MEDS: HYDROPHOR OINTMENT TOP SCH ×4 (10:15→21:58)
--- NOTE | 2018-12-13 14:50 | PROGRESS NOTE ---
DATE: 12/13/2018 SUBJECTIVE: Patient resting in bed. OBJECTIVE: Vital signs: Temperature 98.7 degrees, pulse of 86, respirations 16, blood pressure 143/54, and oxygen saturation 95%. HEENT: Atraumatic, normocephalic. Cardiovascular: S1, S2. Respiratory: Evidence of good air entry bilaterally. Abdomen: Soft, nontender. No masses felt. Extremities: The patient does have extensive area of erythema in both lower extremities. Central nervous system: No obvious focal deficits noted. LABORATORY: Labs none. ASSESSMENT AND PLAN: 1. Bilateral lower extremity cellulitis. Continue antibiotics as recommended by ID. 2. Urinary tract infection secondary to enterococcus. Continue antibiotics as recommended by Infectious Disease. 3. Chronic hypoxemia with hypercapnic respiratory failure. BiPAP as needed at night. 4. Anxiety disorder. Continue anxiolytic 5. Hypothyroidism. Continue levothyroxine. 6. Morbid obesity. Aware. 7. Deep vein thrombosis prophylaxis. Heparin. cc: Ahmet Vallejo MD MTDD
[2018-12-13] MEDS: KEFZOL 2 GM/D5W 2 GM/50 ML IVPB IV SCH (18:54)
--- NOTE | 2018-12-13 19:48 | INFECTIOUS DISEASE PROGRESS NO ---
DATE: 12/13/2018 PRESENT ILLNESS: The patient has oxacillin sensitive Staphylococcus aureus cellulitis with stasis dermatitis of the patient's legs. The patient also has an enterococcal urinary tract infection which is asymptomatic. MEDICATIONS: The patient is receiving Kefzol for the patient's Staphylococcus aureus leg cellulitis. Since the patient's kidney function has recovered back to normal, I have increased the dose of cefazolin to 2 g IV every 8 hours. As regarding the patient's enterococcal urinary tract infection, it is asymptomatic and therefore does not require antibiotic treatment. PHYSICAL EXAMINATION: Vital Signs: Temperature is 98.4 degrees, pulse 86, respirations 16, blood pressure 114/54. General: This is an obese, chronically ill-appearing, elderly male. He is in no acute distress. Head, Eyes, Ears, Nose, Throat: He can hear my spoken words and see near objects. He does not have any white patches on his tongue. Neck: There is no pain when he moves his head. Lungs: Clear to auscultation. Cardiovascular: Heart rate is irregular. Thorax: The patient has an increased AP diameter of the chest. Abdomen: Soft and not tender. Extremities: Both legs have some erythema and some scaling skin, and they both have edema. There is no evidence of tinea pedis. LAB AND X-RAY: The CBC shows a white count of 7040, hemoglobin 11.1, and platelet count 165,000. Creatinine is 1.2. GFR is 60. The culture from the patient's legs grew oxacillin sensitive Staphylococcus aureus. The urine grew Enterococcus. PLAN: My plan is to continue cefazolin and I have ordered that the foot of the bed should be elevated with the manual catch at all times, and also I have put in that the patient should keep his legs elevated as long as possible. No treatment is indicated for the patient's urinary tract infection since it is asymptomatic. COMORBIDITIES: The patient is elderly. He is wheelchair bound. He has congestive heart failure, chronic obstructive pulmonary disease, obesity, and bilateral leg edema. cc: Yayo Dinero MD
[2018-12-13] MEDS: DEPAKOTE PO SCH (21:57)
[2018-12-13] MEDS: REMERON PO SCH (21:58)
[2018-12-13] MEDS: DESYREL PO SCH (21:58)
[2018-12-13] MEDS: KLONOPIN PO PRN (22:01)
[2018-12-14] MEDS: KEFZOL 2 GM/D5W 2 GM/50 ML IVPB IV SCH ×3 (02:51→17:41)
[2018-12-14] MEDS: DUONEB (A & A) INH SCH ×5 (03:49→19:48)
[2018-12-14] MEDS: SYNTHROID PO SCH (06:49)
[2018-12-14] MEDS: SPIRIVA INH SCH (07:20)
[2018-12-14] MEDS: WELLBUTRIN XL PO SCH (10:01)
[2018-12-14] MEDS: HEPARIN SUBQ SCH ×2 (10:01→21:53)
[2018-12-14] MEDS: LASIX PO SCH (10:01)
[2018-12-14] MEDS: HYDROPHOR OINTMENT TOP SCH ×5 (10:02→21:53)
[2018-12-14] MEDS: KLONOPIN PO PRN (17:42)
--- NOTE | 2018-12-14 18:21 | PROGRESS NOTE ---
DATE: 12/14/2018 SUBJECTIVE: Patient resting in bed. OBJECTIVE: Vital signs: Temperature 97.9 degrees, pulse 67, respirations 17, blood pressure 127/68, oxygen saturation 98%. HEENT: Head atraumatic, normocephalic. Cardiovascular: S1, S2. Respiratory system has evidence of good air entry bilaterally. Abdomen is soft, nontender. No masses felt. Extremities: Has erythema as well as edema in the lower extremities. Central nervous system: No obvious focal deficit. LABORATORY DATA: None. ASSESSMENT AND PLAN: 1. Bilateral lower extremity cellulitis. Continue antibiotics as recommended by Infectious Disease. 2. Urinary tract infection secondary to enterococcus. Continue antibiotics as recommended by Infectious Disease. 3. Chronic hypoxemia with hypercapnic respiratory failure. Bilevel positive airway pressure as needed at night. 4. Anxiety disorder. Continue anxiolytic. 5. Hypothyroidism. Continue levothyroxine. 6. Morbid obesity. Aware. 7. Deep vein thrombosis prophylaxis. Heparin. cc: Ahmet Vallejo MD
[2018-12-14] MEDS: DESYREL PO SCH (21:53)
[2018-12-14] MEDS: DEPAKOTE PO SCH (21:53)
[2018-12-14] MEDS: REMERON PO SCH (21:54)
[2018-12-15] MEDS: KEFZOL 2 GM/D5W 2 GM/50 ML IVPB IV SCH ×3 (02:21→18:21)
[2018-12-15] MEDS: DUONEB (A & A) INH SCH ×6 (03:33→23:20)
[2018-12-15] MEDS: SYNTHROID PO SCH (06:26)
[2018-12-15] MEDS: SPIRIVA INH SCH (07:22)
[2018-12-15] MEDS: LASIX PO SCH (09:31)
[2018-12-15] MEDS: HEPARIN SUBQ SCH ×2 (09:31→21:12)
[2018-12-15] MEDS: WELLBUTRIN XL PO SCH (09:31)
[2018-12-15] MEDS: HYDROPHOR OINTMENT TOP SCH ×4 (09:31→21:12)
[2018-12-15] MEDS: NORCO-10 PO PRN (10:20)
--- NOTE | 2018-12-15 15:44 | Diag Imaging Result Doc PS360 ---
EXAM: CT HEAD W/O CONTRAST 12/15/2018 HISTORY: encephalopathy TECHNIQUE: This exam was performed using automated exposure control, adjustment of mA or kV according to patient size, and/or use of iterative reconstruction technique. COMMENT: There is generalized cerebral atrophy. There is no evidence of mass effect, bleed, abnormal extra-axial fluid collection, or hydrocephalus. Compared to 12/06/2018 there has been no significant change. IMPRESSION: Moderate cerebral atrophy. Electronically signed by Art Larson 12/15/2018 3:42 PM
[2018-12-15 16:00] LABS: BASO# 0.03 X1000 (0.0-0.2); BASO% 0.4 % (0.0-0.8); EOS# 0.33 X1000 (0.0-0.7); EOS% 4.3 % (0.0-10.0); HEMATOCRIT 31.3 % (42.0-52.0); HEMOGLOBIN 9.8 g/dL (14.0-18.0); IMM GRAN# 0.03 X1000 (0.0-0.04); IMM GRAN% 0.4 % (0.0-0.5); LYMPH# 2.29 X1000 (1.2-3.4); LYMPH% 30.2 % (20.5-51.1); MCH 32.5 PG (27-31); MCHC 31.3 g/dL (33-37); MCV 103.6 FL (81-99); MONO# 1.24 X1000 (0.11-0.59); MONO% 16.3 % (1.7-9.3); MPV 8.6 FL (7.4-10.4); NEUT# 3.67 X1000 (1.4-6.5); NEUT% 48.4 % (42.2-75.2); PLT 222 X1000 (130-400); RBC 3.02 XMIL (4.7-6.1); RDW 15.4 % (11.5-14.5); WBC 7.59 X1000 (4.8-10.8)
--- NOTE | 2018-12-15 16:19 | INFECTIOUS DISEASE PROGRESS NO ---
DATE: 12/15/2018 PRESENT ILLNESS: Mr. Cortes has an oxacillin-sensitive Staphylococcus aureus cellulitis with stasis dermatitis to his bilateral lower extremities. MEDICATIONS: He is receiving Kefzol 2 g IV every 8 hours. PHYSICAL EXAMINATION: Vital Signs: Temperature is 98.1 degrees, pulse rate 69, respiratory rate 18, blood pressure 127/63, O2 saturation is 97% on 3 L nasal cannula. General: This is an elderly chronically ill-appearing obese gentleman. He is lying in the bed, currently in no acute distress. HEENT: Atraumatic, normocephalic. Oral mucous membranes are pink and moist. Conjunctivae are pink. Neck: Supple. Trachea is midline. Cardiovascular: Heart rate is irregular; sinus arrhythmia with frequent PACs noted on the monitor. Respiratory: Lungs are clear in the upper lobes, diminished in the bases. Abdomen: Soft, round, obese, and nontender. Bowel sounds are active. There is a 1 to 2+ pretibial edema noted bilaterally with splotchy erythema to bilateral calves more so to the right than the left. Neurologic: He is awake, alert, and appropriate. No tremors noted. DIAGNOSTIC STUDIES: None available today. ASSESSMENT AND PLAN: Mr. Cortes is being treated for an oxacillin-sensitive Staphylococcus aureus cellulitis and dermatitis to his bilateral lower extremities. He tells me that the plan is for him to be discharged next week. We will continue him on IV Kefzol through the weekend. Once he is ready to be discharged, we will most likely send him out on Keflex by mouth and will plan to follow up with him in the office. These plans have been discussed with and recommended by Dr. Dinero. COMORBIDITIES: For Mr. Cortes include: 1. He is elderly. 2. Obese. 3. Wheelchair bound 4. Congestive heart failure. 5. Chronic obstructive pulmonary disease. 6. Bilateral lower extremity chronic leg edema. Dictated by NATTY Luna for Yayo Dinero MD cc: Yayo Dinero MD [facility]
--- NOTE | 2018-12-15 16:55 | PROGRESS NOTE ---
DATE: 12/15/2018 SUBJECTIVE: Patient resting in bed. Somewhat confused this afternoon. OBJECTIVE: Vital signs: Temperature 98.1 degrees, pulse 69, respiratory rate 18, blood pressure 127/63, oxygen saturation 97%. HEENT: Atraumatic, normocephalic. Cardiovascular System: S1, S2. Respiratory system has evidence of good air entry bilaterally. Abdomen is soft, nontender, no masses felt. Extremities have evidence of edema with erythematous changes in both lower extremities. Central Nervous System: The patient is awake, confused. LABORATORIES: None. ASSESSMENT AND PLAN: 1. Bilateral lower extremity cellulitis. Continue antibiotics as recommended by ID. 2. Urinary tract infection secondary to Enterococcus. Continue antibiotics as recommended by ID. 3. Chronic hypoxemia with hypercapnic respiratory failure. Maintain patient on BiPAP at night. Check ABG now. 4. Hypothyroidism. Continue levothyroxine. 5. Altered mental status. May be related to CO2 retention. We will also get a CT scan of the brain without contrast. 6. Anxiety disorder. Continue anxiolytics. 7. Morbid obesity. Aware. 8. Deep vein thrombosis prophylaxis. Heparin. cc: Ahmet Vallejo MD
[2018-12-15] MEDS: DEPAKOTE PO SCH (21:12)
[2018-12-15] MEDS: REMERON PO SCH (21:12)
[2018-12-15] MEDS: DESYREL PO SCH (21:12)
[2018-12-16] MEDS: KEFZOL 2 GM/D5W 2 GM/50 ML IVPB IV SCH ×3 (01:24→17:52)
[2018-12-16] MEDS: DUONEB (A & A) INH SCH ×6 (05:46→23:08)
[2018-12-16] MEDS: SYNTHROID PO SCH (06:37)
[2018-12-16] MEDS: SPIRIVA INH SCH (07:15)
[2018-12-16] MEDS: WELLBUTRIN XL PO SCH (08:47)
[2018-12-16] MEDS: HYDROPHOR OINTMENT TOP SCH ×4 (08:47→21:07)
[2018-12-16] MEDS: HEPARIN SUBQ SCH ×2 (08:47→21:04)
[2018-12-16] MEDS: LASIX PO SCH (08:47)
--- NOTE | 2018-12-16 12:40 | PROGRESS NOTE ---
DATE: 12/16/2018 SUBJECTIVE: This morning Mr. Cortes refers to be doing fairly okay, did not really have any complaint. The was at the bedside at the time of the encounter. OBJECTIVE: Vital signs: Blood pressure is 133/69, pulse is 79, respirations 18, temperature is 99.1 degrees. General: Mr. Cortes is a 68-year-old morbidly obese, male, BMI 36.6. He is in bed, in no distress. HEENT: Mucosa is pink and moist. Anicteric. Acyanotic. Neck: Supple. Chest: Good air entry bilaterally, no crepitations, no rhonchi. Cardiovascular: Regular rate and rhythm. No murmurs, no rubs, no gallops. GI: The abdomen is soft, distended, but nontender. Bowel sounds present. Extremities: No pedal edema. There are bilateral changes in the lower extremity consistent with congestive dermatopathy. [employer]IST [employer]OD[employer]: The patient is awake, alert, and oriented. LABORATORY DATA: WBC is 7.59, hemoglobin is 9.8, platelet count of 222,000. Chemistry is also reviewed and completely normal, this is from days before. The patient's microbiology data has also been reviewed. MEDICATIONS: Reviewed. ASSESSMENT: 1. Bilateral lower extremity stasis dermatitis with superimposed MSSA infection. The patient is on Keflex, being seen by ID. 2. Enterococcus faecalis urinary tract infection. 3. History of chronic hypercarbic and hypoxemic respiratory failure. The patient uses BiPAP at home. 4. Obesity, with sleep apnea. 5. Altered mental status, improved. 6. Morbid obesity. In general, I think Mr. Cortes is fairly stable. I understand from ID note that the plan is to transition his IV antibiotics to p.o. Keflex. This will be done some time Tuesday and hopefully we can get him home by then. cc: Juanpablo Samuel MD
[2018-12-16] MEDS: KLONOPIN PO PRN (12:55)
[2018-12-16 17:42] LABS: ALB/GLOB RATIO 0.8; ALBUMIN 2.5 g/dL (3.5-5.0); CALCIUM 7.5 mg/dL (8.8-10.2); CREATININE 1.2 mg/dL (0.7-1.2); POTASSIUM 2.9 mmol/L (3.5-5.1); TOTAL BILIRUBIN 0.28 mg/dL (0.20-1.00); TOTAL PROTEIN 5.5 g/dL (6.3-8.3)
[2018-12-16] MEDS: DESYREL PO SCH (21:03)
[2018-12-16] MEDS: DEPAKOTE PO SCH (21:03)
[2018-12-16] MEDS: REMERON PO SCH (21:03)
[2018-12-17] MEDS: KEFZOL 2 GM/D5W 2 GM/50 ML IVPB IV SCH ×3 (02:11→17:31)
[2018-12-17] MEDS: DUONEB (A & A) INH SCH ×6 (03:43→23:05)
[2018-12-17] MEDS: SYNTHROID PO SCH (06:18)
[2018-12-17] MEDS: SPIRIVA INH SCH (07:33)
[2018-12-17] MEDS: WELLBUTRIN XL PO SCH (09:49)
[2018-12-17] MEDS: LASIX PO SCH (09:49)
[2018-12-17] MEDS: HEPARIN SUBQ SCH ×2 (09:49→21:06)
[2018-12-17] MEDS: KLONOPIN PO PRN (09:49)
[2018-12-17] MEDS: NORCO-10 PO PRN ×2 (09:50→11:36)
[2018-12-17] MEDS: HYDROPHOR OINTMENT TOP SCH ×4 (09:53→21:06)
[2018-12-17] MEDS ORDERED: POTASSIUM CHLORIDE 40 MEQ/SWI 40 MEQ/100 ML IVPB IV ONE (14:24)
--- NOTE | 2018-12-17 15:24 | PROGRESS NOTE ---
DATE: 12/17/2018 SUBJECTIVE: Patient resting in bed. present in the room. OBJECTIVE: Vital signs: Temperature 97.3 degrees, pulse 76, respiratory 20, blood pressure 115/63, O2 saturation 97 percent. HEENT: Atraumatic, normocephalic. Cardiovascular: S1, S2. Respiratory: Has evidence of good entry bilaterally. Abdomen: Soft, nontender. No mass felt. Extremities: Has evidence of erythematous changes in both lower extremities. Central nervous system: No obvious focal deficit noted. LABS: Sodium 144, potassium 2.9, chloride is 99, bicarb 33, BUN is 7, creatinine 1.2. ASSESSMENT AND PLAN: 1. Bilateral lower extremity cellulitis, continue antibiotics as recommended by ID. 2. Urinary tract infection secondary to enterococcus, continue antibiotics as recommended by ID. 3. Hypokalemia. Replace potassium level, check a mag level. 4. Chronic hypoxemic with hypercapnic respiratory failure. Continue BiPAP use at night. 5. Hypothyroidism. Continue levothyroxine. 6. Anxiety is going to continue anxiolytics . 7. Morbid obesity aware. 8. Deep vein thrombosis prophylaxis heparin. 9. Disposition. Patient will probably need to be on intravenous antibiotics for now considering the severity of the cellulitic change in both lower extremities. As to the timing of discharge will defer that to the Infectious Disease team. cc: Ahmet Vallejo MD
[2018-12-17] MEDS: KLOR-CON PO SCH (17:31)
[2018-12-17] MEDS: DESYREL PO SCH (21:06)
[2018-12-17] MEDS: REMERON PO SCH (21:06)
[2018-12-17] MEDS: DEPAKOTE PO SCH (21:06)
[2018-12-18] MEDS: KEFZOL 2 GM/D5W 2 GM/50 ML IVPB IV SCH ×3 (02:16→19:40)
[2018-12-18] MEDS: DUONEB (A & A) INH SCH ×6 (03:34→23:00)
[2018-12-18 07:08] LABS: BASO# 0.04 X1000 (0.0-0.2); BASO% 0.5 % (0.0-0.8); EOS# 0.44 X1000 (0.0-0.7); EOS% 5.4 % (0.0-10.0); HEMOGLOBIN 9.9 g/dL (14.0-18.0); IMM GRAN# 0.05 X1000 (0.0-0.04); IMM GRAN% 0.6 % (0.0-0.5); LYMPH# 2.72 X1000 (1.2-3.4); LYMPH% 33.6 % (20.5-51.1); MCH 32.2 PG (27-31); MCHC 30.9 g/dL (33-37); MCV 104.2 FL (81-99); MONO# 1.12 X1000 (0.11-0.59); MONO% 13.8 % (1.7-9.3); MPV 8.8 FL (7.4-10.4); NEUT# 3.72 X1000 (1.4-6.5); NEUT% 46.1 % (42.2-75.2); PLT 292 X1000 (130-400); RBC 3.07 XMIL (4.7-6.1); RDW 14.9 % (11.5-14.5); WBC 8.09 X1000 (4.8-10.8)
[2018-12-18] MEDS: SPIRIVA INH SCH (07:36)
[2018-12-18 07:42] LABS: AGAP 9; BUN 8 mg/dL (8-22); CALCIUM 8.7 mg/dL (8.8-10.2); CHLORIDE 102 mmol/L (98-107); COSMO 287; ESTIMATED GFR > 60; GLUCOSE 94 mg/dL (70-104); POTASSIUM 3.7 mmol/L (3.5-5.1); SODIUM 145 mmol/L (136-145); TCO2 34 mmol/L (25-35)
[2018-12-18] MEDS: KLOR-CON PO SCH (08:35)
[2018-12-18] MEDS: LASIX PO SCH (08:35)
[2018-12-18] MEDS: KLONOPIN PO PRN (08:35)
[2018-12-18] MEDS: WELLBUTRIN XL PO SCH (08:35)
[2018-12-18] MEDS: HEPARIN SUBQ SCH ×2 (08:35→21:10)
[2018-12-18] MEDS: SYNTHROID PO SCH (08:35)
[2018-12-18] MEDS: HYDROPHOR OINTMENT TOP SCH ×4 (08:35→21:10)
[2018-12-18] MEDS: NORCO-10 PO PRN (08:36)
--- NOTE | 2018-12-18 16:16 | PROGRESS NOTE ---
DATE: 12/18/2018 SUBJECTIVE: The patient was [*]. No new complaints today. His is present in the room. OBJECTIVE: Vital signs: Temperature 97.5, pulse is 80, respiration rate 14, blood pressure is 126/50. Oxygen saturation is 98%. HEENT: Patient is atraumatic, normocephalic. Cardiovascular: S1, S2. Respiratory: Has evidence of good air entry bilaterally. Abdomen: Soft, nontender. No masses felt. Extremities: Have erythematous changes in both lower extremities which seem to be improving somewhat. Central Nervous System: No obvious focal deficits noted. LABORATORY DATA: WBC is 8.09, hematocrit 32.0, with a platelet count of 2929,000. Sodium is 145, potassium 3.7, chloride is 102, bicarb is 34, BUN is 8, creatinine 1.0. ASSESSMENT AND PLAN: 1. Bilateral lower extremity cellulitis. Continue antibiotics as recommended by Infectious Disease. 2. Urinary tract infection secondary to enterococcus. Continue antibiotics per ID recommendation. 3. Chronic hypoxemia with hypercapnic respiratory failure. Continue BiPAP at night. 4. Hypothyroidism. Continue levothyroxine. 5. [*]. Continue anxiolytics. 6. Morbid obesity. Aware. 7. Deconditioning. PT recommended. 8. DVT prophylaxis. Heparin. 9. Disposition. The patient requires intravenous antibiotics for now. Timing of discharge will be per recommendation of Infectious Disease team. cc: Ahmet Vallejo MD
--- NOTE | 2018-12-18 18:30 | INFECTIOUS DISEASE PROGRESS NO ---
DATE: 12/18/2018 PRESENT ILLNESS: The patient has an oxacillin-sensitive Staphylococcus aureus leg cellulitis and an enterococcal urinary tract infection. MEDICATIONS: Currently, the patient is on Ancef. PHYSICAL EXAMINATION: Vital Signs: Temperature is 97.5 degrees, pulse 80, respirations 14, blood pressure 126/50. General: This is a chronically ill-appearing elderly obese male. He is in no acute distress. Head, Eyes, Ears, Nose, and Throat: He can hear my spoken words and see near objects. He does not have any white patches on his tongue. Neck: His neck does not hurt when he turns his head. Lungs: Clear to auscultation. Cardiovascular: Regular heart rate. Abdomen: Soft and nontender. Extremities: Both legs are less edematous and erythematous. Neurologic: Patient is awake. He can move his extremities. There is no tremor. DIAGNOSTIC STUDIES: CBC shows a white count of 8090, hemoglobin 9.9, platelet count 292,000. Creatinine is 1, GFR is greater than 60. The patient's leg grew out oxacillin-sensitive Staphylococcus aureus. Urine grew out Enterococcus. ASSESSMENT AND PLAN: The plan is to send the patient home tomorrow on Augmentin to cover the leg cellulitis and urinary tract infection. Also, it was emphasized to the patient to elevate his legs as much as possible as long as there is cellulitis remaining. PATIENT'S COMORBIDITIES: 1. He is elderly. 2. He is obese. 3. He is pretty much wheelchair bound. 4. He has congestive heart failure. 5. Chronic obstructive pulmonary disease. 6. Bilateral leg edema. cc: Yayo Dinero MD MT[facility]rett
[2018-12-18] MEDS: REMERON PO SCH (21:10)
[2018-12-18] MEDS: DEPAKOTE PO SCH (21:10)
[2018-12-18] MEDS: DESYREL PO SCH (21:10)
[2018-12-19] MEDS: KEFZOL 2 GM/D5W 2 GM/50 ML IVPB IV SCH ×2 (02:40→09:29)
[2018-12-19] MEDS: DUONEB (A & A) INH SCH ×3 (03:51→11:27)
[2018-12-19] MEDS: SYNTHROID PO SCH ×2 (05:54→06:03)
[2018-12-19] MEDS: SPIRIVA INH SCH (08:02)
[2018-12-19] MEDS: WELLBUTRIN XL PO SCH (09:27)
[2018-12-19] MEDS: LASIX PO SCH (09:28)
[2018-12-19] MEDS: HEPARIN SUBQ SCH (09:28)
[2018-12-19] MEDS: KLOR-CON PO SCH (09:28)
[2018-12-19] MEDS: HYDROPHOR OINTMENT TOP SCH (09:29)
[2018-12-19 11:59] VITALS: BP 122/69
--- NOTE | 2018-12-19 14:40 | DISCHARGE SUMMARY ---
ADMISSION DATE: 12/06/2018 DISCHARGE DATE: 12/19/2018 ADMISSION DIAGNOSIS: 1. Toxic metabolic encephalopathy. 2. Bilateral lower extremity cellulitis with stasis dermatitis. 3. Urinary tract infection. 4. Chronic hypoxemic and hypercapnic respiratory failure. 5. Acute kidney injury on chronic kidney disease. 6. Obstructive sleep apnea. 7. Hypothyroidism. 8. Anxiety. 9. Morbid obesity. 10.Alcohol dependence. DISCHARGE DIAGNOSIS: 1. Metabolic encephalopathy resolved. 2. Bilateral lower extremity cellulitis with stasis dermatitis. 3. Left lower extremity methicillin-susceptible Staphylococcus aureus. 4. Enterococcus faecalis group D urinary tract infection. 5. Morbid obesity. 6. Chronic obstructive pulmonary disease. 7. Obstructive sleep apnea. 8. Chronic kidney disease. 9. Chronic hypoxemic and hypercapnic respiratory failure. 10.Alcohol dependence. 11.Chronic back pain. CONSULTATIONS: Yayo Dinero MD with Infectious Disease. DIAGNOSTIC PROCEDURES AND FINDINGS: EKG 12/06/2018: Sinus rhythm with sinus arrhythmia and first- degree AV block, nonspecific ST and T wave abnormalities. Chest x-ray 12/06/2018: No evidence of acute pathology. Head CT 12/06/2018: Cerebral atrophy. No evidence of acute intracranial disease. Echocardiogram 12/07/2018: EF 55%, no clear evidence of segmental wall motion abnormalities. Head CT 12/15/2018: Mild cerebral atrophy. HOSPITAL COURSE: Mr. Cortes is a 68-year-old male with history of chronic respiratory failure on home O2, bilateral lower extremity lymphedema, chronic back pain, diastolic heart failure, COPD, who came to the ER with 1 week of confusion and hallucinations. He is wheelchair-bound, and on arrival to the ER states that he has been confused but was for the most part oriented. He was noted to have lower extremity cellulitis and urinary tract infection. He was started on broad- spectrum antibiotics, head CT was done as well as an ABG. His ABG showed mild hypercapnia but this was compensated. Left lower extremity culture was taken as well as urine culture and blood cultures. The skin culture grew back MSSA and the urine culture grew back Enterococcus faecalis group D. We consulted Dr. Dinero, who placed him on Ancef. We also consulted physical therapy and occupational therapy as well as Palliative Care. Wound Care was consulted during this time. His symptoms have improved and we did place him on a Trilogy machine, which he will go home with. He will go home with continued antibiotics, but at this time he is overall stable for discharge home with home health. DISCHARGE MEDICATIONS: Wellbutrin 300 mg p.o. a.m., Coreg 12.5 mg p.o. b.i.d., Depakote 1000 mg p.o. at bedtime, mirtazapine 15 mg p.o. at bedtime, Minipress 1 mg p.o. at bedtime, Desyrel 50 mg p.o. at bedtime. Venlafaxine has been stopped. Brovana nebulizer 15 mcg/2 mL every 12 hours inhaled, DuoNeb every 4 hours inhaled, potassium chloride 60 mEq p.o. daily, Spiriva inhaled as directed, budesonide 0.5 mg/2 mL inhaled b.i.d, Dayron multivitamin for men 1 daily, Lasix 80 mg daily, Aldactone 25 mg daily, [place] 10 every 12 hours as needed for pain, Klonopin 2 mg p.o. b.i.d. as needed, DuoNeb 3 mL inhaled every 6 hours as needed, amoxicillin 875/125 1 p.o. q.12 for 10 days, Synthroid 100 mcg p.o. daily. DISCHARGE DIET: Heart healthy. DISCHARGE ACTIVITY: Resume activity as tolerated. DISPOSITION AND OTHER DISCHARGE INSTRUCTIONS: The patient is discharged home with home health and [facility]. He is to follow up with Dr. Yayo Dinero on 12/28 at 9:[address] Salima Madrigal on 12/28 at 2 p.m. He is to return to the ER or call 911 for worsening complaints or concerns, he is to continue all medications as directed. DISCHARGE TIME: Greater than 35 minutes. Dictated by NATTY Henry for Anatoliy Rubin MD cc: NATTY Henry MD Leroy F. Harris, MD Lindsay E. Smith, MD
== END 2018-12-19 14:36 | disposition home health service (06) | DRG 602 ==
LOC: SUPCPDRO → ED 11:14 → SUATTDRO 19:28 → EDIPHOLD 19:28 → ICU 12-07 19:00 → 3N 12-10 15:55
PROVIDERS: ATTEND Internal Medicine
CPT/HCPCS: 36569; 70450; 71010; 71045; 80048; 80053; 81001; 82533; 82570; 82805; 83036; 83735; 83935; 84156; 84300; 84439; 84443; 84484; 84540; 85025; 85027; 85610; 85651; 86140; 87040; 87070; 87077; 87088; 87186; 87205; 93005; 93306; 94640; 94660; 94761; 96365; 96366; 96367; 96368; 97110; 97162; 97165; 97530; 99285; 99291; A9270; C8929; J0690; J0696; J1644; J2020; J2543; J3480; J7030; J7050; Q9957